=== PATIENT | female | born 1945 | race Caucasian/White ===

== ENCOUNTER → 2017-08-23 | Outpatient (CLI) | payer MEDICARE, OTHER ==
[~2017-08-23] MED LIST: ACET325 PO; ALBU90OI; ALBU90OI6 INH; ALLEGRA ALLERG180 MG PO; AMOCLA875 PO; ASCO1ER; ASCO500 PO; Alph-E-Mixed400 UNIT PO; Azor 5-20 MG T1 EACH; BENAML20/5; BUDE6HFA; CHOL10002 PO; DOCU100 PO; Exforge 5-1601 EACH PO; FEXO180; FLAX PO; FLUSAL2505 INH; HYDR1TAB94 PO; OMEP20ER; OXYACE5T PO; PROACE100 PO; PROBIOTIC250 MG PO; PROM25 PO; Prilosec Otc20 MG PO; QUIN325; QUININE SULFAT324 MG PO; RALO60 PO
== END | disposition home or self-care (01) ==
LOC: PLD 14:03 → LAB SHORT 14:03
DX: C44.612 Basal cell carcinoma of skin of right upper limb, including shoulder (principal); D04.61 Carcinoma in situ of skin of right upper limb, including shoulder
CPT/HCPCS: 88305

== ENCOUNTER → 2019-04-24 | Outpatient (CLI) | payer MEDICARE | END | disposition home or self-care (01) | LOC: PLD 14:19 → LAB SHORT 14:19 | DX: C44.612 Basal cell carcinoma of skin of right upper limb, including shoulder (principal) | CPT/HCPCS: 88305 ==

== ENCOUNTER 2020-09-16 07:50 | Inpatient (IN) | payer MEDICARE, OTHER ==
[~2020-09-16] VITALS: Ht 167.6 cm; Wt 78.5 kg
[2020-09-16 08:34] LABS: BASOPHILS ABSOLUTE AUTO 0.03 K/mm3 (0.00-0.23); BASOPHILS PERCENT AUTO 0 % (0-2); EOSINOPHILS PERCENT AUTO 0 % (0-6); Hematocrit 45.4 % (33.0-51.0); Hemoglobin 14.9 g/dL (11.5-16.0); IMMATURE GRAN ABSOLUTE AUTO 0.06 K/mm3 (0.00-0.10); IMMATURE GRAN PERCENT AUTO 0 % (0-1); LYMPHOCYTES ABSOLUTE AUTO 0.67 K/mm3 (0.84-5.20); LYMPHOCYTES PERCENT AUTO 5 % (21-46); MONOCYTES PERCENT AUTO 6 % (4-13); Mean Corpuscular HGB 30.8 pg (26.0-34.0); Mean Corpuscular HGB Conc 32.8 g/dL (31.5-36.5); Mean Corpuscular Volume 94 fL (80-100); Mean Platelet Volume 9.2 fL (9.1-12.4); NEUTROPHILS ABSOLUTE AUTO 12.59 K/mm3 (1.96-9.15); NEUTROPHILS PERCENT AUTO 88 % (41-73); Platelet Count 193 K/mm3 (150-400); RDW Coefficient Variation 13.5 % (11.7-14.2); RDW Standard Deviation 46.7 fL (35.1-46.3); Red Blood Cell Count 4.83 M/mm3 (3.80-5.20); White Blood Cell Count 14.25 K/mm3 (4.00-11.30)
[2020-09-16 08:54] LABS: Albumin/Globulin Ratio 1.1 (0.8-1.8); Bilirubin, Total 1.8 mg/dL (0.1-1.0); Bun/Creatinine Ratio 21.4 (12.0-20.0); Calcium, Blood 9.2 mg/dL (8.5-10.1); Creatinine, Blood 1.03 mg/dL (0.40-1.00); Globulin, Blood 3.8 g/dL (2.2-4.0); Potassium, Blood 3.7 mmol/L (3.5-5.5); Total Protein, Blood 7.8 g/dL (6.4-8.2)
[2020-09-16 09:05] LABS: Source, Urine Clean Catch
[2020-09-16 09:24] LABS: Appearance, Urine Clear (Clear); Bilirubin, Urine Neg (Neg); Blood, Urine 2+ (Neg); Color, Urine Yellow (P-Yellow); Glucose Qualitative, Urine Neg (Neg); Ketones, Urine 1+ (Neg); Leukocyte Esterase, Urine 1+ (Neg); Nitrite, Urine Neg (Neg); Protein, Urine 2+ (Neg); Specific Gravity, Urine 1.015 (1.003-1.022); Urobilinogen, Urine 2+ (Normal)
[2020-09-16 09:40] LABS: Bacteria Rare /hpf; Granular Casts 0-2 /lpf (0); Hyaline Casts 0-2 /lpf (0-2); Red Blood Cells, Urine 0-2 /hpf (0-2); Squamous Epithelial Cells Few /hpf (Few)
[2020-09-16] MEDS ORDERED: Diovan320 MG PO (10:27)
[2020-09-16] MEDS ORDERED: MONT10T PO (10:27)
[2020-09-16] MEDS ORDERED: AMLO5 PO (10:28)
[2020-09-16 10:46] LABS: Influenza A, PCR NEGATIVE (NEGATIVE); Influenza B, PCR NEGATIVE (NEGATIVE); Resp Syncytial Virus, PCR NEGATIVE (NEGATIVE); SARS-Cov-2 (COVID-19) PCR, MMC NEGATIVE (NEGATIVE)
[2020-09-16] MEDS ORDERED: FLUTICASONE-SA1 EAC9 INH (18:41)
[2020-09-16] MEDS ORDERED: PROBIOTIC1 EA13 PO (19:40)
[2020-09-16] MEDS ORDERED: MAGNESIUM OXID500 MG PO (19:40)
[2020-09-16] MEDS ORDERED: Garlic1 EAC1 PO (19:41)
[2020-09-16] MEDS ORDERED: VITAMIN C PO (19:41)
[2020-09-16] MEDS ORDERED: BERGAMOT PO (19:41)
[2020-09-16] MEDS ORDERED: VITAMIN D5000 UNIT PO (19:42)
[2020-09-16] MEDS ORDERED: [UNRECOGNIZED DRUG - OTHER] PO (19:43)
[2020-09-16] MEDS ORDERED: METHYL B PO (19:43)
--- NOTE | 2020-09-17 04:43 | NUR ---
SHIFT ASSESSMENT NEW ER ADMIT THIS SHIFT (1919), NO ACUTE CHANGES ABRIL ASSUMING CARE, A&O X4, MEDICATED PER SEP FOR PAIN- HAS REQUIRED Q2 ADMIN SINCE ASSUMING CARE, PT RESTED WELL T/O THE NIGHT WAKING FOR PAIN MEDS AND RETURNING TO SLEEP BETWEEN ADMIN, SLEEPING AT THIS TIME, CALL LIGHT IN REACH, WILL CONT TO MONITOR UNTIL REPORT GIVEN TO DAY RN.
[2020-09-17 05:14] LABS: Hematocrit 46.7 % (33.0-51.0); Hemoglobin 14.7 g/dL (11.5-16.0); Mean Corpuscular HGB 31.3 pg (26.0-34.0); Mean Corpuscular HGB Conc 31.5 g/dL (31.5-36.5); Mean Platelet Volume 9.6 fL (9.1-12.4); Platelet Count 189 K/mm3 (150-400); RDW Coefficient Variation 14.4 % (11.7-14.2); White Blood Cell Count 15.89 K/mm3 (4.00-11.30)
[2020-09-17 05:42] LABS: Albumin/Globulin Ratio 0.9 (0.8-1.8); Bilirubin, Total 0.8 mg/dL (0.1-1.0); Bun/Creatinine Ratio 16.2 (12.0-20.0); Calcium, Blood 7.4 mg/dL (8.5-10.1); Creatinine, Blood 1.6 mg/dL (0.40-1.00); Globulin, Blood 3.4 g/dL (2.2-4.0); Total Protein, Blood 6.4 g/dL (6.4-8.2)
[2020-09-17 05:45] LABS: Potassium, Blood 5.7 mmol/L (3.5-5.5)
[2020-09-17 06:13] LABS: Mean Corpuscular Volume 99 fL (80-100)
[2020-09-17 07:16] LABS: BAND PERCENT MAN 6 % (0-8); BASOPHILS PERCENT MAN 0 % (0-2); EOSINOPHILS PERCENT MAN 0 % (0-6); LYMPHOCYTES ABSOLUTE MAN 0.31 K/mm3 (0.84-5.20); LYMPHOCYTES PERCENT MAN 2 % (21-46); MONOCYTES ABSOLUTE MAN 0.47 K/mm3 (0.16-1.47); MONOCYTES PERCENT MAN 3 % (4-13); NEUTROPHILS ABSOLUTE MAN 15.09 K/mm3 (1.96-9.15); SEG NEUTROPHILS PERCENT MAN 89 % (41-73); TOTAL CELLS COUNTED 100
[2020-09-17 13:17] LABS: Source, Urine Catheter
[2020-09-17 13:22] LABS: Appearance, Urine Hazy (Clear); Blood, Urine 2+ (Neg); Color, Urine Amber (P-Yellow); Glucose Qualitative, Urine Neg (Neg); Ketones, Urine 1+ (Neg); Leukocyte Esterase, Urine 1+ (Neg); Nitrite, Urine Neg (Neg); Protein, Urine 2+ (Neg); Specific Gravity, Urine 1.025 (1.003-1.022); Urobilinogen, Urine 1+ (Normal)
[2020-09-17 13:58] LABS: Bun/Creatinine Ratio 14.1 (12.0-20.0); Calcium, Blood 7.8 mg/dL (8.5-10.1); Creatinine, Blood 2.48 mg/dL (0.40-1.00)
[2020-09-17 14:06] LABS: Bilirubin, Urine 1+ (Neg)
[2020-09-17 14:07] LABS: Bacteria Mod /hpf; Squamous Epithelial Cells Few /hpf (Few)
[2020-09-17 15:43] LABS: Eosinophils-Raw #,Urine 0
--- NOTE | 2020-09-17 17:04 | NUR ---
ADMIT: 09/16/20 DISCHARGE: Pancreatitis DX: CC: PRISCILA CALL: RESIDENCE: Home CAREGIVER: Makayla Traylor, Family Member, DX: HTN, CKD-stage 1, COPD, GERD, see list DME: plantar fasciitis arch sleeve CCM: none HOME HEALTH: none SUMMARY: 1: Pancreatitis, acute 09/17/[address] Salazar today, Dr Jones will be on for Mon, mon, mon. DR Grimaldo eta for discharge after the weekend. cp
--- NOTE | 2020-09-17 19:01 | NUR ---
SHIFT SUMMARY PT HAS BEEN CONFUSED THIS AFTERNOON AND CAN BE AGITATED AT TIMES. RIOS WAS PLACED THIS AFTERNOON WITH SMALL AMOUNT OF DARK VINCENT URINE DRAINING. RIOS CONTINUES TO BE PATENT AND DRAINING. DR. LIZ WAS CONSULTED AND MEDICATIONS GIVEN PER ORDERS. MEDICATED FOR PAIN PER EMAR. PT DID SLEEP A LOT OF THE AFTERNOON. SISTER WAS AT BEDSIDE THIS AFTERNOON. IVF INFUSING PER ORDERS. NO ACUTE DISTRESS AT THIS TIME. CALL LIGHT IN REACH. BED ALARM ON FOR SAFETY. REPORT GIVEN TO HALI MOSES.
--- NOTE | 2020-09-18 04:29 | NUR ---
SHIFT SUMMARY PT CONFUSED MOST OF SHIFT W/SHORT PERIODS OF ORIENTATION, MEDICATED PER SEP FOR PAIN WHICH ONLY SUBSIDED PAIN BRIEFLY. PT SLEPT SHORT PERIODS MOANING AND CALLING OUT MUCH OF THE NIGHT, PT XFER'D TO 347 @ 4430, REPORT GIVEN TO AURELIA BENNETT, ALL BELONGINGS MOVED W/PT, PULLMAN CAR CLERK AT BEDSIDE.
--- NOTE | 2020-09-18 04:44 | NUR ---
TRANSFER TO ROOM 347 PT ARRIVED FROM ROOM 311. PT AWAKE AND ORIENTED TO SELF AND STAFF. ABLE TO ANSWER SOME YES/NO QUESTIONS BUT DOES HAVE SOME NOTICEABLE CONFUSION. MEDICATED FOR PAIN AND GIVEN BREATHING TREATMENT PRIOR TO TRANSFER. SODIUM BICARB RUNNING AT 50 ML/HR. VSS, WILL CONTINUE TO MONITOR.
[2020-09-18 04:51] LABS: BASOPHILS ABSOLUTE AUTO 0.05 K/mm3 (0.00-0.23); BASOPHILS PERCENT AUTO 0 % (0-2); Hematocrit 42.7 % (33.0-51.0); Hemoglobin 13.7 g/dL (11.5-16.0); LYMPHOCYTES ABSOLUTE AUTO 1.18 K/mm3 (0.84-5.20); LYMPHOCYTES PERCENT AUTO 6 % (21-46); MONOCYTES ABSOLUTE AUTO 1.32 K/mm3 (0.16-1.47); MONOCYTES PERCENT AUTO 7 % (4-13); Mean Corpuscular HGB Conc 32.1 g/dL (31.5-36.5); Mean Corpuscular Volume 97 fL (80-100); Mean Platelet Volume 9.8 fL (9.1-12.4); Platelet Count 189 K/mm3 (150-400); RDW Coefficient Variation 15.1 % (11.7-14.2); RDW Standard Deviation 54.2 fL (35.1-46.3); Red Blood Cell Count 4.42 M/mm3 (3.80-5.20); White Blood Cell Count 20.37 K/mm3 (4.00-11.30)
[2020-09-18 04:54] LABS: EOSINOPHILS PERCENT AUTO 0 % (0-6); IMMATURE GRAN ABSOLUTE AUTO 0.13 K/mm3 (0.00-0.10); IMMATURE GRAN PERCENT AUTO 1 % (0-1); NEUTROPHILS ABSOLUTE AUTO 17.69 K/mm3 (1.96-9.15); NEUTROPHILS PERCENT AUTO 87 % (41-73)
[2020-09-18 05:19] LABS: Alanine Aminotransfer (ALT/SGP 112 U/L (12-78); Albumin, Blood 2.6 g/dL (3.4-5.0); Albumin/Globulin Ratio 0.8 (0.8-1.8); Alk Phos 88 U/L (50-136); Amylase, Blood 533 U/L (25-115); Anion Gap 7 mmol/L (6-16); Aspartate Aminotrans (AST/SGOT 77 U/L (12-37); Bilirubin, Total 0.6 mg/dL (0.1-1.0); Blood Urea Nitrogen 50 mg/dL (8-24); Bun/Creatinine Ratio 13.7 (12.0-20.0); CO2, Blood 21 mmol/L (21-32); Calcium, Blood 7.5 mg/dL (8.5-10.1); Chloride, Blood 117 mmol/L (98-108); Creatinine, Blood 3.64 mg/dL (0.40-1.00); Globulin, Blood 3.4 g/dL (2.2-4.0); Glomerular Filtration Rate 13 (60-); Glucose, Blood 190 mg/dL (70-99); Magnesium, Blood 2.1 mg/dL (1.6-2.4); Phosphorus, Blood 3.2 mg/dL (2.5-4.9); Sodium, Blood 145 mmol/L (136-145)
[2020-09-18 05:22] LABS: C-REACTIVE PROTEIN, EXT RANGE >19.000 mg/dL (0.000-0.300)
--- NOTE | 2020-09-18 08:07 | NUR ---
CALLED DR CONN AND DISCUSSED PT'S COMPLAINT OF CHEST PAIN. PT DIAPHORETIC, TEMP, TACHYPNEIC. PUT 2L ON HER, GOT VS. PT STATES IT IS HARD TO BREATHE. DR CONN STATES SHE WILL PUT IN ORDERS
[2020-09-18 09:28] LABS: Troponin I <0.015 ng/mL (0.000-0.040)
[2020-09-18 09:30] LABS: CPK Creatine Kinase 2124 U/L (26-193); Creatine Kinase MB Index 0.7 (0.0-4.0)
--- NOTE | 2020-09-18 09:30 | NUR ---
SPOKE TO DR CONN ABOUT LACTIC ACID AND PTS' REFUSAL TO TAKE TYLENOL DUE TO AMS. ALSO TOLD HER ABOUT PT'S REALY DISTENDED ABD, BUT PT REFUSING TO ALLOW FULL ABD ASSESSMENT DUE TO AGITATION. DR CONN ORDER'S PT TO GO TO PCU. PLACING ORDER
--- NOTE | 2020-09-18 10:30 | NUR ---
REPORT GIVEN TO DOBBY LOOM WEAVER, HEADED TO PCU FLOOR
--- NOTE | 2020-09-18 10:49 | NUR ---
Echocardiogram performed.
--- NOTE | 2020-09-18 11:10 | NUR ---
PT TRANSFERRED TO [facility] AT 1055
[2020-09-18 11:19] LABS: Adenovirus Not Detected (NOT DETECT); Bordetella pertussis Not Detected (NOT DETECT); Chlamydophila pneumoniae Not Detected (NOT DETECT); Coronavirus 229E Not Detected (NOT DETECT); Coronavirus HKU1 Not Detected (NOT DETECT); Coronavirus NL63 Not Detected (NOT DETECT); Coronavirus OC43 Not Detected (NOT DETECT); Human Metapneumovirus Not Detected (NOT DETECT); Human Rhinovirus/Enterovirus Not Detected (NOT DETECT); Influenza A/2009-H1 Not Detected (NOT DETECT); Influenza A/H1 Not Detected (NOT DETECT); Influenza A/H3 Not Detected (NOT DETECT); Influenza B Not Detected (NOT DETECT); Mycoplasma pneumoniae Not Detected (NOT DETECT); Parainfluenza Virus 1 Not Detected (NOT DETECT); Parainfluenza Virus 2 Not Detected (NOT DETECT); Parainfluenza Virus 3 Not Detected (NOT DETECT); Parainfluenza Virus 4 Not Detected (NOT DETECT); Respiratory Syncytial Virus Not Detected (NOT DETECT); SARS-Cov-2 (COVID-19), BioFire Not Detected (NOT DETECT)
--- NOTE | 2020-09-18 13:58 | NUR ---
NOTIFIED DR. CONN OF CRITICAL LACTIC ACID OF 2.7, UP FROM 2.2. DR. CONN AT BEDSIDE TO ASSESS PAIN. PATIENT HAS RECEIVED FENTANYL 25 MCG X2 SINCE ARRIVING TO FLOOR. PATIENT CALM AND COOPERATIVE AT THIS TIME, DROWSY. DR. CONN STATES SHE WILL REVIEW AND PUT IN ORDERS.
[2020-09-18 14:42] LABS: Troponin I <0.015 ng/mL (0.000-0.040)
[2020-09-18 14:43] LABS: Creatine Kinase MB 12.6 ng/mL (0.0-3.6)
[2020-09-18 14:47] LABS: CPK Creatine Kinase 2203 U/L (26-193); Creatine Kinase MB Index 0.6 (0.0-4.0)
--- NOTE | 2020-09-18 19:54 | NUR ---
SHIFT SUMMARY: PATIENT A/OX1-2. TRANSFERRED FROM MEDICAL FLOOR THIS AM. FENTANYL GIVEN FOR ABD PAIN. NPO. ORAL CARE PROVIDED. REPOSITIONING Q2H. SHE HAS BEEN COOPERATIVE WITH CARE THIS SHIFT. PLAN IS FOR BOWEL REST PER DR. CONN. DAUGHTER AND SON UPDATED. REPORT GIVEN TO ONCOMING RN.
[2020-09-18 21:08] LABS: Creatine Kinase MB 9.1 ng/mL (0.0-3.6); Troponin I <0.015 ng/mL (0.000-0.040)
[2020-09-18 21:16] LABS: CPK Creatine Kinase 2028 U/L (26-193); Creatine Kinase MB Index 0.4 (0.0-4.0)
[2020-09-19 04:32] LABS: Hematocrit 37.6 % (33.0-51.0); Hemoglobin 12.3 g/dL (11.5-16.0); Mean Corpuscular HGB 30.6 pg (26.0-34.0); Mean Corpuscular HGB Conc 32.7 g/dL (31.5-36.5); Mean Corpuscular Volume 94 fL (80-100); Mean Platelet Volume 9.9 fL (9.1-12.4); Platelet Count 173 K/mm3 (150-400); RDW Coefficient Variation 15.3 % (11.7-14.2); RDW Standard Deviation 53.1 fL (35.1-46.3); Red Blood Cell Count 4.02 M/mm3 (3.80-5.20); White Blood Cell Count 15.32 K/mm3 (4.00-11.30)
--- NOTE | 2020-09-19 04:34 | NUR ---
SHIFT SUMMARY PT A0X1-2. PT CAN ANSW QUESTION APPROPRIATELY BUT HAS SOME CONFUSION. SHE APPEARS TO BE ANXIOUS AND PAINFUL AT THE BEGINNING OF THE SHIFT. PAIN MANAGED WITH FENTANYL 25MCG, MEDICATED TWICE T/O SHIFT. ALSO ADMINISTERED ATIVAN X1 T/O SHIFT. PT REMAINS NPO. LUNGS SOUNDS WHEEZY AND PHLEGMY. CALLED AND NOTIFIED DR. LIZ NOTIFED AND REPORTED FLUID BALANCED OF +1921ML AND A NEED TO INCREASE O2 TO 3L. DR. LIZ DECREASED BICARB TO 50ML/HR RATE, 1 TIME BUMEX VIA IV. PT IS CURRENTLY ON 3L 02, SATURATING AT 90%. PT APPEARED TO HAVE GREEN COLOR BILE FROM HER MOUTH. ORAL CARE PROVIDED. CALL LIGHT WITHIN REACH.
--- NOTE | 2020-09-19 04:46 | NUR ---
SHIFT SUMMARY PT AOX4. NO ACUTE CHANGES OVERNIGHT. PT COMFORTABLE SLEEPING T/O SHIFT. HE HAS BEEN USING HIS CPAP MACHINE. PT DENIES CHEST PAIN, SOB, NUMBNESS, TINGLING SENSATION. HEPARIN TITRATE TODAY, CHANGES TO 17UNITS/26.4/88KG AND A BOLUS. HE HAS NPO AFTER MIDNIGHT. TO STOP HEPARIN DRIP AT 0600 FOR CORONARY ANGIO TODAY. CALL LIGHT WITHIN REACH. WILL PROVIDE REPORT TO ONCOMING NURSE.
[2020-09-19 05:06] LABS: Alanine Aminotransfer (ALT/SGP 87 U/L (12-78); Albumin, Blood 2.3 g/dL (3.4-5.0); Albumin/Globulin Ratio 0.6 (0.8-1.8); Alk Phos 75 U/L (50-136); Anion Gap 11 mmol/L (6-16); Aspartate Aminotrans (AST/SGOT 74 U/L (12-37); Bilirubin, Total 0.8 mg/dL (0.1-1.0); Blood Urea Nitrogen 67 mg/dL (8-24); Bun/Creatinine Ratio 15.9 (12.0-20.0); CO2, Blood 22 mmol/L (21-32); Calcium, Blood 7.6 mg/dL (8.5-10.1); Chloride, Blood 112 mmol/L (98-108); Creatinine, Blood 4.21 mg/dL (0.40-1.00); Globulin, Blood 3.8 g/dL (2.2-4.0); Glomerular Filtration Rate 11 (60-); Glucose, Blood 223 mg/dL (70-99); Potassium, Blood 4.3 mmol/L (3.5-5.5); Sodium, Blood 145 mmol/L (136-145); Total Protein, Blood 6.1 g/dL (6.4-8.2); Vancomycin, Random 22.8 ug/mL
[2020-09-19 05:50] LABS: BAND PERCENT MAN 20 % (0-8); BASOPHILS PERCENT MAN 0 % (0-2); EOSINOPHILS PERCENT MAN 0 % (0-6); LYMPHOCYTES ABSOLUTE MAN 0.76 K/mm3 (0.84-5.20); LYMPHOCYTES PERCENT MAN 5 % (21-46); MONOCYTES ABSOLUTE MAN 1.07 K/mm3 (0.16-1.47); MONOCYTES PERCENT MAN 7 % (4-13); NEUTROPHILS ABSOLUTE MAN 13.48 K/mm3 (1.96-9.15); SEG NEUTROPHILS PERCENT MAN 68 % (41-73); TOTAL CELLS COUNTED 100
--- NOTE | 2020-09-19 08:20 | NUR ---
0820- PT OFF THE FLOOR VIA [facility] FOR XRAY. RN NOTIFIED BY XRAY STAFF THAT PT IS VOMITING. THIS RN TO XRAY TO EVALUATE PT. 0824- ZOFRAN PULLED FROM XIS AND TAKEN TO XRAY BY THIS RN. 0828- THIS RN ASSESSES PT IN XRAY. SHE IS ALERT AND ORIENTED AT HER BASELINE, ZOFRAN GIVEN IV PER MD ORDERS (SEE EMAR.) APROX 200ML OF GREEN EMESIS NOTED IN EMESIS BAG. XRAY CONTINUES, PT TOLERATING SITTING UP IN BED FOR CHEST XRAY. PT IS MOVED TO LYING ON HER SIDE FOR ANOTHER XRAY, PT TOLERATES WELL. NO MORE VOMITING IS NOTED. PT IS TRANSFERED TO XRAY TABLE FOR LAST XRAY, PT IS LYING ON HER SIDE WHEN GREEN BILE-LIKE LIQUID STARTS TO RUN OUT OF HER MOUTH AND NOSE. THIS RN AT BEDSIDE WITH ORAL SUCTION. ORAL CAVITY IS CLEARED VIA SUCTION, PT IS TRANSFERRED BACK TO [facility] ON HER SIDE, HOB ELEVATED, AND TRANSPORTED BACK TO PCU 10. CHARGE NURSE AND PT'S PRIMARY NURSE AT BEDSIDE. RT CALLED TO BEDSIDE. PT IS POSITIONED SITTING UP AT 90 DEGREES, RT PERFORMED ORAL AND DEEP SUCTION RETURNING LARGE AMOUNTS OF GREEN FLUIDS. OXYGEN MASK AT FLUSH PLACED ON PT D/T SATURATIONS DROPPING INTO THE LOW 80S. RT EVALUATING PT, DECIDES SHE NEEDS BREATHING ASSISTANCE, AMBU BAG AT FLUSH NOW APPLIED BY RT. CODE BLUE CALLED AT THIS TIME.
[2020-09-19 09:27] LABS: Hematocrit 37.7 % (33.0-51.0); Hemoglobin 12.2 g/dL (11.5-16.0); Mean Corpuscular HGB 31.6 pg (26.0-34.0); Mean Corpuscular HGB Conc 32.4 g/dL (31.5-36.5); Mean Corpuscular Volume 98 fL (80-100); Mean Platelet Volume 9.8 fL (9.1-12.4); Platelet Count 163 K/mm3 (150-400); RDW Coefficient Variation 15.5 % (11.7-14.2); RDW Standard Deviation 55.8 fL (35.1-46.3); Red Blood Cell Count 3.86 M/mm3 (3.80-5.20); White Blood Cell Count 15.48 K/mm3 (4.00-11.30)
[2020-09-19 09:56] LABS: Alanine Aminotransfer (ALT/SGP 81 U/L (12-78); Albumin/Globulin Ratio 0.5 (0.8-1.8); Alk Phos 70 U/L (50-136); Anion Gap 10 mmol/L (6-16); Aspartate Aminotrans (AST/SGOT 68 U/L (12-37); Bilirubin, Total 0.7 mg/dL (0.1-1.0); Blood Urea Nitrogen 68 mg/dL (8-24); Bun/Creatinine Ratio 15.6 (12.0-20.0); CO2, Blood 23 mmol/L (21-32); CPK Creatine Kinase 1406 U/L (26-193); Calcium, Blood 7.1 mg/dL (8.5-10.1); Chloride, Blood 111 mmol/L (98-108); Creatine Kinase MB 5.3 ng/mL (0.0-3.6); Creatine Kinase MB Index 0.4 (0.0-4.0); Creatinine, Blood 4.35 mg/dL (0.40-1.00); Globulin, Blood 3.7 g/dL (2.2-4.0); Glomerular Filtration Rate 10 (60-); Glucose, Blood 197 mg/dL (70-99); Magnesium, Blood 2.2 mg/dL (1.6-2.4); Potassium, Blood 4.7 mmol/L (3.5-5.5); Sodium, Blood 144 mmol/L (136-145); Total Protein, Blood 5.7 g/dL (6.4-8.2); Troponin I <0.015 ng/mL (0.000-0.040)
[2020-09-19 10:00] LABS: BAND PERCENT MAN 10 % (0-8); BASOPHILS PERCENT MAN 0 % (0-2); EOSINOPHILS PERCENT MAN 0 % (0-6); LYMPHOCYTES PERCENT MAN 11 % (21-46); MONOCYTES ABSOLUTE MAN 1.08 K/mm3 (0.16-1.47); MONOCYTES PERCENT MAN 7 % (4-13); NEUTROPHILS ABSOLUTE MAN 12.69 K/mm3 (1.96-9.15); SEG NEUTROPHILS PERCENT MAN 72 % (41-73); TOTAL CELLS COUNTED 100
--- NOTE | 2020-09-19 11:19 | NUR ---
AM NOTE, IMAGING, CODE BLUE: COMPLETED BEDSIDE REPORT AT APPROX 0700. PATIENT WAKES TO VERBAL, ABLE TO SLEEP, DENIED NEED FOR REPOSITIONING. IN ROOM TO COMPLETE VITALS AND ASSESSMENT AT 0800. PATIENT ORIENTED TO NAME/BIRTHDAY AND FAMILY BUT DISORIENTED TO DATE/TIME/PLACE. COOPERATIVE WITH CARE AND FOLLOWS DIRECTIONS. ABLE TO RN PERITONEAL DIALYSIS HANDS EQUALLY, SMILES, STICKS TONGUE OUT. ORAL CARE COMPLETED WITH SUCTION SPONGE. ON 2L O2 VIA NC, LUNGS SOUND COARSE THROUGHOUT. RESPIRATIONS SOUND WET, RECEIVED BUMEX LAST NIGHT AND IV FLUIDS DOWN TO 50 MLS/HR. SINUS TACH ON TELE IN THE LOW 100'S. ABD DISTENDED AND FIRM. PATIENT REPORTS TENDERNESS ACROSS LOW ABDOMEN UPON PALPATION BUT DENIES PAIN AT REST. DENIES NAUSEA. RIOS DRAINING CLEAR YELLOW URINE. SKIN IS PALE. BED ALARM ON FOR SAFETY. IMAGING IN ROOM TO TRANSFER PATIENT AT APPROX 0810. SLID PATIENT TO [facility] VIA SLIDER SHEET. PATIENT TOLERATING LAYING FLAT. DOWN TO IMAGING. IMAGING CALLED ME OVER VOCERA AT APPROX 0820 AND STATED THAT PATIENT HAD VOMITED AND ASKED IF AN RN COULD COME AND ASSIST. I ASKED JESI MCGARRY WHO IS THE PCU FLOAT RN TO GO DOWN TO XRAY AND TAKE ZOFRAN TO ADMINISTER TO THE PATIENT. JESI OBTAINED ZOFRAN AND WENT DOWN TO IMAGING, PLEASE SEE NOTE FROM JESI. JULIA GAGNON RN CALLED AT APPROX 0845 AND STATED THEY WERE RETURNING TO THE ROOM WITH THE PATIENT. WENT INTO PATIENT'S ROOM. SHE HAD DRIED GREEN EMESIS ON HER FACE AND ON HER BACK. SHE WAS LAYING ON HER SIDE. LUNGS SOUNDED VERY DIMINISHED ON THE LEFT SIDE AND COARSE ON THE RIGHT SIDE. SPO2 IN THE 80'S. ROLLED PATIENT TO GET BLANKETS OUT FROM UNDER HER AND SAT HER STRAIGHT UP. SHE WAS AWAKE AND ANSWERING QUESTIONS. SPO2 IN LOW 80'S. JSEI STATES SHE BELIEVED PATIENT ASPIRATED IN IMAGING. INCREASED O2 TO MAX VIA NASAL CANNULA WHILE WAITING FOR RESPIRATORY THERAPY. USED SUCTION IN PATIENT'S MOUTH, OBTAINING DARK GREEN RETURN. MELISSA VICENTE RESPIRATORY THERAPIST IN ROOM. ADMINISTERED BREATHING TREATMENT. SHE WAS SUCTIONING PATIENT AND STATED THAT SHE WAS GETTING MORE AND MORE GREEN RETURN. SHE OBTAINED DEEP SUCTION AND STATED THAT SHE THOUGHT PATIENT NEEDED AN NG TUBE. SPO2 CONTINUING IN THE 80'S WITH MORE GREEN RETURN VIA SUCTION. CALLED DR. CONN AND NOTIFIED HER OF PATIENT'S O2 STATUS, THAT SHE VOMITED IN IMAGING AND POSSIBLY ASPIRATED, AND DARK GREEN RETURN AND THAT WE BELIEVED SHE COULD BENEFIT FROM AN NG TUBE. ORDERS RECEIVED FOR NG TUBE. WHILE I WAS ON THE PHONE WITH DR. CONN PATIENT WENT INTO RESPIRATORY ARREST AND CODE WAS CALLED, NOTIFIED DR. CONN THAT WE WERE CALLING A CODE AND SHE STATED THAT SHE WAS ON HER WAY. CODE TEAM IN ROOM, DR. FELDER IN ROOM GIVING ORDERS AND PREPPED TO INTUBATE. PER DOCUMENTATION BY JULIA RN: 40 OF PROPOFOL GIVEN AT 0902, 25 AT THE TEETH INTUBATION COMPLETED AT 0905, NORMAL SALINE 1000 MLS WIDE OPEN ORDERED AT 0907, AT 0920 LEVO WAS STARTED AT 5. PLEASE SEE CODE BLUE SHEET. PICC LINE STARTED BY THADDEUS. DR. CONN AT BEDSIDE, UPDATED HER, SHE GAVE ORDERS. PATIENT TRANSFERRED TO ICU AT APPROX 1015, REPORT GIVEN TO [employer] SUPERVISOR. FAMILY WAS NOTIFIED OF PATIENT STATUS AND TRANSFER.
[2020-09-19 11:52] LABS: PCO2 Arterial 43.1 mmHg (35-45); PO2 Arterial 109 mmHg (80-100); pH Blood Arterial 7.33 (7.35-7.45)
--- NOTE | 2020-09-19 13:14 | NUR ---
PT TO ICU 7 FROM PCU ROOM 10 FOLLOWING RESPIRATORY CODE @0945. PT ARRIVES INTUBATED AND QUICKLY SEDATED WITH PROPOFOL 30 MCG/KG/MIN. VENT SETTINGS ON ARRIVAL 14/350/10/100%, CURRENT VENT SETTINGS 14/350/8/50% WITH SATS 99%. 8.0 TUBE, 25 @LIP. PT ON LEVOPHED BRIEF PERIOD FOLLOWING INTUBATION PLACED ON STANDBY @1046, BLOOD PRESSURE WNL AT THIS TIME. PT'S ABDOMEN DISTENDED AND FIRM TO PALPATION, PT GRIMACES WITH ABDOMINAL PALPATION. ABSENT BOWEL TONES X4, PER PREVIOUS IMAGING PT HAS ILEUS. NGT TO LOW CONTINUOUS SUCTION, GREEN BILE OUTPUT. PT HAS RIOS WITH SMALL AMOUNT OF URINARY OUTPUT, URINE SPECIMINE SENT TO LAB PER DR. LIZ ORDER. 24 HOUR URINE PROTEIN STARTED AT 1245, TO END 09/20/20 @1245. PT'S SISTER AT BEDSIDE, FAMILY UPDATED WITH PT'S TRANSFER AND PLAN OF CARE.
--- NOTE | 2020-09-19 18:40 | NUR ---
SHIFT SUMMARY NO ACUTE CHANGES SINCE PT TRANSFERRED TO ICU. PT REMAINS INTUBATED, VENT SETTINGS AC 14/350/8/35% WITH SATS 98, LUNG SOUNDS CLEAR. PROPOFOL @ 35 MCG/KG/MIN. LEVOPHED REMAINS OFF, BLOOD PRESSURE STABLE. SODIUM BICARB GTT @ 100 ML/HR. PT NSR WITH SHORT RUNS OF VTAMUMTAZ, DR. FELDER AWARE. ABDOMEN REMAINS DISTENDED AND FIRM, PT EXHIBITS FACIAL GRIMACING WITH PALPATION. NGT TO LOW CONTINUOUS SUCTION, 25 ML BILE SUCTIONED THIS SHIFT. 385 ML URINARY OUTPUT. WILL REPORT TO ONCOMING NURSE.
--- NOTE | 2020-09-19 19:15 | NUR ---
ASSUMPTION OF CARE RECEIVED REPORT FROM NATY MOSES. ASSUMED CARE OF PATIENT. PATIENT INTUBATED AND SEDATED ON PROPOFOL. SLIGHT TURNS OF HER HEAD SIDE TO SIDE, BUT REMAINS A SAS OF 3. OG TO CONTINUOUS SUCTION, DARK OUTPUT NOTED. RIOS PATENT AND DRAINING CLEAR, YELLOW URINE ON ICE PER 24 HOUR URINE COLLECTION. WILL REVIEW ORDERS AND TREAT PRESCRIBED.
--- NOTE | 2020-09-20 | NUR ---
REASSESSMENT NO ACUTE CHANGES FROM INITIAL ASSESSMENT. VENT SETTINGS UNCHANGED. VITALS STABLE, LEVOPHED REMAINS OFF. PROPOFOL REMAINS AT 35MCG/KG/MIN. WILL CONTINUE TO MONITOR.
[2020-09-20 03:38] LABS: Hemoglobin 9.7 g/dL (11.5-16.0); Mean Corpuscular HGB 31.2 pg (26.0-34.0); Mean Corpuscular HGB Conc 33.4 g/dL (31.5-36.5); Mean Platelet Volume 9.7 fL (9.1-12.4); Platelet Count 122 K/mm3 (150-400); RDW Coefficient Variation 15.5 % (11.7-14.2); RDW Standard Deviation 53.4 fL (35.1-46.3); Red Blood Cell Count 3.11 M/mm3 (3.80-5.20); White Blood Cell Count 10.68 K/mm3 (4.00-11.30)
[2020-09-20 03:43] LABS: Mean Corpuscular Volume 93 fL (80-100)
[2020-09-20 04:00] LABS: Alanine Aminotransfer (ALT/SGP 45 U/L (12-78); Albumin, Blood 2.7 g/dL (3.4-5.0); Albumin/Globulin Ratio 0.9 (0.8-1.8); Alk Phos 49 U/L (50-136); Anion Gap 8 mmol/L (6-16); Aspartate Aminotrans (AST/SGOT 28 U/L (12-37); Bilirubin, Direct 0.4 mg/dL (0.0-0.3); Bilirubin, Indirect 0.3 mg/dL (0.1-0.7); Bilirubin, Total 0.7 mg/dL (0.1-1.0); Blood Urea Nitrogen 71 mg/dL (8-24); Bun/Creatinine Ratio 15.8 (12.0-20.0); CO2, Blood 28 mmol/L (21-32); CPK Creatine Kinase 451 U/L (26-193); Calcium, Blood 7.7 mg/dL (8.5-10.1); Chloride, Blood 109 mmol/L (98-108); Globulin, Blood 2.9 g/dL (2.2-4.0); Glomerular Filtration Rate 10 (60-); Glucose, Blood 260 mg/dL (70-99); Magnesium, Blood 2.1 mg/dL (1.6-2.4); Phosphorus, Blood 3.1 mg/dL (2.5-4.9); Potassium, Blood 3.8 mmol/L (3.5-5.5); Sodium, Blood 145 mmol/L (136-145); Total Protein, Blood 5.6 g/dL (6.4-8.2); Uric Acid, Blood 8.3 mg/dL (2.6-6.0); Vancomycin, Random 16.8 ug/mL
--- NOTE | 2020-09-20 04:00 | NUR ---
REASSESSMENT NO ACUTE CHANGES FROM PREVIOUS ASSESSMENT. VENT SETTINGS REMAINS AC 25, VT 350, PEEP 8, FIO2 35%. PROPOFOL AT 40 MCG/KG/MIN. PATIENT MEDICATED FOR PAIN CHARTED, NO S/S OF DISTRESS AT THIS TIME. NG TO CONTINUOUS SUCTION BEGAN PRODUCING DARK DRAINAGE. WILL MONITOR OUTPUT.
--- NOTE | 2020-09-20 04:47 | NUR ---
LABS REPORTED POSITIVE BLOOD CULTURES TO DR. IGLESIAS. NO ORDERS RECEIVED. CURRENT ORDER OF ZOSYN REMAINS ACTIVE. WILL TREAT PRESCRIBED.
[2020-09-20 05:25] LABS: BAND PERCENT MAN 11 % (0-8); BASOPHILS PERCENT MAN 0 % (0-2); EOSINOPHILS ABSOLUTE MAN 0.21 K/mm3 (0.00-0.68); EOSINOPHILS PERCENT MAN 2 % (0-6); LYMPHOCYTES ABSOLUTE MAN 0.64 K/mm3 (0.84-5.20); LYMPHOCYTES PERCENT MAN 6 % (21-46); MONOCYTES ABSOLUTE MAN 0.53 K/mm3 (0.16-1.47); MONOCYTES PERCENT MAN 5 % (4-13); NEUTROPHILS ABSOLUTE MAN 9.29 K/mm3 (1.96-9.15); SEG NEUTROPHILS PERCENT MAN 76 % (41-73); TOTAL CELLS COUNTED 100
--- NOTE | 2020-09-20 06:16 | NUR ---
SHIFT SUMMARY PATIENT REMAINED INTUBATED AND SEDATED. MEDICATED FOR PAIN ONCE DURING SHIFT. NO ADDIITONAL OUTPUT NOTED FROM NG AT THIS TIME. RIOS CONTINUES TO DRAIN CLEAR, YELLOW URINE, COLLECTING FOR 24HOUR URINE. NO ACUTE EVENTS DURING SHIFT. PATIENT APPEARS COMFORTABLE, WITH NO S/S OF DISTRESS. VITALS STABLE. WILL CONTINUE TO MONITOR AND REPORT TO ONCOMING RN.
--- NOTE | 2020-09-20 09:59 | NUR ---
ASSUMED CARE OF PT, REPORT RCV'D FROM AURELIA COUGHLIN. PT INTUBATED AND SEDATED. VENT SETTINGS AC 14/350/8/35%. PROPOFOL@ 40 MCG/KG/MIN. LUNG SOUNDS CLEAR T/O. ABDOMIN SEVERELY DISTENDED AND FIRM, FACIAL GRIMACING WITH LIGHT PALPATION. NGT TO CONTINUOUS SUCTION, 300 ML GREEN BILE OVERNIGHT. RIOS PATENT AND DRAINING, 24 HOUR URINE COLLECTION OVER AT 1245. NAHCO3 @ 100 ML/HR. SEE FULL SHIFT ASSESSMENT.
--- NOTE | 2020-09-20 10:22 | NUR ---
ORDER TO PLACE DOBHOFF PARALLEL TO NGT. GOAL FOR DOBHOFF PLACEMENT TO BE POST PYLORIC IN DUODENUM. CONTINUE SUCTION. START TRICKLE FEEDS.
[2020-09-20 10:49] LABS: PCO2 Arterial 40.3 mmHg (35-45); PO2 Arterial 78.7 mmHg (80-100); pH Blood Arterial 7.48 (7.35-7.45)
--- NOTE | 2020-09-20 11:03 | NUR ---
PT'S SISTER KATINA CALLED, UPDATED WITH PT'S STATUS AND PLAN OF CARE. PT'S STEP-DAUGHTER WILL BE HERE THIS AFTERNOON.
--- NOTE | 2020-09-20 11:13 | NUR ---
HOLD TRICKLE FEEDS PER DR. FELDER, CONTINUE NGT CONTINUOUS SUCTION. GET ABDOMINAL PRESSURE.
[2020-09-20 11:55] LABS: Protein, Urine Quantitative 117.8 mg/dL (0.0-11.9)
--- NOTE | 2020-09-20 12:23 | NUR ---
INTRAABDOMINAL PRESSURE 13. DR. FELDER NOTIFIED. CONTINUE TO MONITOR PRESSURE ONCE PER SHIFT.
--- NOTE | 2020-09-20 18:28 | NUR ---
SHIFT SUMMARY NO ACUTE CHANGES OVERNIGHT. PT REMAINS VENTED, VENT SETTINGS UNCHANGED AC 14/350/8/35%. PROPOFOL @ 40 MCG/KG/MIN. OGT TO CONTINUOUS SUCTION, 100 ML BILIARY OUTPUT. SMALL AMOUNT OF THICK BLOOD TINGED SPUTUM FROM ETT. PT'S VSS T/O SHIFT. 635 ML URINARY OUTPUT. WILL REPORT TO ONCOMING NURSE.
--- NOTE | 2020-09-20 20:00 | NUR ---
SHIFT ASSESSMENT RECEIVED HAND OFF FROM Diana BREWER USING SBAR DURING BEDSIDE REPORT. LYING IN SEMI FOWLERS WITH EYES CLOSED. PUPIL DIALATION IS SLUGGISH BILATERALLY, EACH IS 2MM. RIGHT NARE NG TUME IS PATENT, DRAINGING DARK GREEN FLUID TO CONTINOUS SUCTION SET AT 50MM/HG. PLACEMENT VERIFIED WITH AIR BOLUS AND RESIDUAL CHECK. LINE IRRIGATED WITH 60ML H20, 250ML OUTPUT NOTED IN SUCTION CANISTER. INTUBATED WITH 8,0 ETT THAT IS 24 AT THE LIP. VENTED WITH SETTINGS AT 350/14/8 AND 35% FIO2, SATTING AT 96%. LEFT UPPER LOBE HAS INSPIRATORY WHEEZING AND ALL OTHER LOBES ARE CLEAR AND DIMINISHED. ORAL CARE COMPLETED USING CARE KITS IN ROOM WITH G. PROPOFOL INFUSING AT 45MCG/KG/MIN (21.6ML/HR) (PRADO LUMEN) AND NS AT 75ML/HR (RED LUMEN) TO LEFT UPPER ARM PICC LINE THAT FLUSHES WITH EASE. RIGHT AC 20G AND LEFT AC 18G PIV'S ARE PATENT, EACH FLUSHES WITH EASE. ADBOMEN ROUND AND DISTENDED, BOWEL TONES ARE ABSENT, NO BM NOTED TODAY. RIOS CATH IS PATENT, DRAINING CLOUDY YELLOW URINE WITH SEDIMENT TO GRAVITY. BILATERAL SOFT WRIST RESTRAINTS REMOVED AND ROM COMPLETED. RESTRAINTS REAPPLIED PER POLICY. (+)1 EDEMA NOTED TO EXTEMITIES WHICH ARE ELEVATED ON PILLOWS. SAFETY MEASURES IN PLACE. WILL CONTINUE TO MONITOR.
--- NOTE | 2020-09-21 | NUR ---
MIDNIGHT ROUNDS LYING IN SEMI FOWLERS WITH EYES CLOSED. PUPIL DIALATION REMAINS SLUGGISH BILATERALLY, EACH IS 2MM. RIGHT NARE NG TUME IS PATENT, DRAINGING DARK GREEN FLUID TO CONTINOUS SUCTION SET AT 50MM/HG. PLACEMENT VERIFIED WITH AIR BOLUS AND RESIDUAL CHECK. LINE IRRIGATED WITH 1000ML H20, 150ML ADDITIONAL OUTPUT NOTED IN SUCTION CANISTER. INTUBATED WITH 8.0 ETT THAT IS 24 AT THE LIP. AC VENT SET AT 350/14/8 AND 35% FIO2, SATTING AT 96%. LEFT UPPER LOBE HAS INSPIRATORY WHEEZING AND ALL OTHER LOBES ARE CLEAR, & DIMINISHED. ORAL CARE COMPLETED USING CARE KITS IN ROOM. PROPOFOL INFUSING AT 45MCG/KG/MIN (21.6ML/HR) TO PRADO LUMEN, LINE CHANGED. NS INFUSING AT 75ML/HR INTO THE RED LUMEN OF LEFT UPPER ARM PICC LINE THAT FLUSHES WITH EASE. RIGHT AC 20G AND LEFT AC 18G PIV'S ARE PATENT, EACH FLUSHES WITH EASE. ADBOMEN ROUND AND DISTENDED, BOWEL TONES ARE ABSENT IN ALL QUADS, AND NO BM NOTED TODAY. RIOS CATH IS PATENT, DRAINING CLOUDY YELLOW URINE WITH SEDIMENT TO GRAVITY. BILATERAL SOFT WRIST RESTRAINTS REMOVED AND ROM COMPLETED. RESTRAINTS REAPPLIED PER POLICY. (+)1 EDEMA NOTED TO EXTEMITIES WHICH ARE ELEVATED ON PILLOWS. SAFETY MEASURES IN PLACE. WILL CONTINUE TO MONITOR.
--- NOTE | 2020-09-21 02:45 | NUR ---
BATH COMPLETE BED BATH AND LINE CHANGE COMPLETED, TOLERATED WELL. SAFETY MEASURES IN PLACE. WILL CONTINUE TO MONITOR.
--- NOTE | 2020-09-21 04:00 | NUR ---
4AM ROUNDS LYING IN SEMI FOWLERS WITH EYES CLOSED. PUPILS REMAINS SLUGGISH AT 2MM. RIGHT NARE NG TUME IS PATENT, DRAINGING DARK GREEN FLUID TO CONTINOUS SUCTION SET AT 50MM/HG. PLACEMENT VERIFIED WITH AIR BOLUS AND RESIDUAL CHECK. LINE IRRIGATED WITH 1000ML H20, 250ML ADDITIONAL OUTPUT NOTED IN SUCTION CANISTER. INTUBATED WITH 8.0 ETT THAT IS 24 AT THE LIP. AC VENT SET AT 350/14/8 AND 35% FIO2, SATTING AT 97%. LEFT UPPER LOBE HAS INSPIRATORY WHEEZING AND ALL OTHER LOBES ARE CLEAR, & DIMINISHED. ORAL CARE COMPLETED USING CARE KITS IN ROOM. PROPOFOL INFUSING AT 45MCG/KG/MIN (21.6ML/HR) TO PRADO LUMEN, LINE CHANGED. NS INFUSING AT 75ML/HR INTO THE RED LUMEN OF LEFT UPPER ARM PICC LINE THAT FLUSHES WITH EASE. RIGHT AC 20G AND LEFT AC 18G PIV'S ARE PATENT, EACH FLUSHES WITH EASE. ADBOMEN ROUND AND DISTENDED, BOWEL TONES ARE ABSENT IN ALL QUADS, AND NO BM NOTED TODAY. RIOS CATH IS PATENT, DRAINING CLOUDY YELLOW URINE WITH SEDIMENT TO GRAVITY. BILATERAL SOFT WRIST RESTRAINTS REMOVED AND ROM COMPLETED. RESTRAINTS REAPPLIED PER POLICY. (+)1 EDEMA NOTED TO EXTEMITIES WHICH ARE ELEVATED ON PILLOWS. SAFETY MEASURES IN PLACE. WILL CONTINUE TO MONITOR.
[2020-09-21 04:38] LABS: Hematocrit 29.8 % (33.0-51.0); Hemoglobin 9.8 g/dL (11.5-16.0); Mean Corpuscular HGB 30.6 pg (26.0-34.0); Mean Corpuscular HGB Conc 32.9 g/dL (31.5-36.5); Mean Corpuscular Volume 93 fL (80-100); Mean Platelet Volume 9.7 fL (9.1-12.4); Platelet Count 127 K/mm3 (150-400); RDW Coefficient Variation 15.2 % (11.7-14.2); RDW Standard Deviation 52.1 fL (35.1-46.3); White Blood Cell Count 12.19 K/mm3 (4.00-11.30)
[2020-09-21 05:04] LABS: Albumin, Blood 2.3 g/dL (3.4-5.0); Anion Gap 10 mmol/L (6-16); Blood Urea Nitrogen 76 mg/dL (8-24); CO2, Blood 29 mmol/L (21-32); Calcium, Blood 8.2 mg/dL (8.5-10.1); Chloride, Blood 107 mmol/L (98-108); Creatinine, Blood 4.46 mg/dL (0.40-1.00); Glomerular Filtration Rate 10 (60-); Glucose, Blood 202 mg/dL (70-99); Phosphorus, Blood 4.5 mg/dL (2.5-4.9); Potassium, Blood 3.6 mmol/L (3.5-5.5); Sodium, Blood 146 mmol/L (136-145); Vancomycin, Random 13.3 ug/mL
[2020-09-21 05:44] LABS: BAND PERCENT MAN 7 % (0-8); BASOPHILS PERCENT MAN 0 % (0-2); EOSINOPHILS ABSOLUTE MAN 0.73 K/mm3 (0.00-0.68); EOSINOPHILS PERCENT MAN 6 % (0-6); LYMPHOCYTES ABSOLUTE MAN 1.34 K/mm3 (0.84-5.20); LYMPHOCYTES PERCENT MAN 11 % (21-46); MONOCYTES ABSOLUTE MAN 0.36 K/mm3 (0.16-1.47); MONOCYTES PERCENT MAN 3 % (4-13); NEUTROPHILS ABSOLUTE MAN 9.75 K/mm3 (1.96-9.15); SEG NEUTROPHILS PERCENT MAN 73 % (41-73); TOTAL CELLS COUNTED 100
--- NOTE | 2020-09-21 06:29 | NUR ---
SHIFT SUMMARY LYING IN SEMI FOWLERS WITH EYES CLOSED. PUPILS REMAINS SLUGGISH AT 2MM. RIGHT NARE NG TUME IS PATENT, DRAINGING DARK GREEN FLUID TO CONTINOUS SUCTION SET AT 50MM/HG. PLACEMENT VERIFIED WITH AIR BOLUS AND RESIDUAL CHECK. INTUBATED WITH 8.0 ETT THAT IS 24 AT THE LIP. AC VENT SET AT 350/14/8 AND 35% FIO2, SATTING AT 96%. LEFT UPPER LOBE HAS INSPIRATORY WHEEZING AND ALL OTHER LOBES ARE CLEAR, & DIMINISHED. PROPOFOL INFUSING AT 45MCG/KG/MIN (21.6ML/HR) TO PRADO LUMEN, LINE CHANGED. NS INFUSING AT 75ML/HR INTO THE RED LUMEN OF LEFT UPPER ARM PICC LINE THAT FLUSHES WITH EASE. RIGHT AC 20G AND LEFT AC 18G PIV'S ARE PATENT, EACH FLUSHES WITH EASE. ADBOMEN ROUND AND DISTENDED, BOWEL TONES ARE ABSENT IN ALL QUADS, AND NO BM NOTED TODAY. RIOS CATH IS PATENT, DRAINING CLOUDY YELLOW URINE WITH SEDIMENT TO GRAVITY. BILATERAL SOFT WRIST RESTRAINTS REMIAN INTACT PER POLICY. (+)1 EDEMA NOTED TO EXTEMITIES WHICH ARE ELEVATED ON PILLOWS. SAFETY MEASURES IN PLACE. WILL CONTINUE TO MONITOR AND GIVE HAND OFF TO ONCOMING SHIFT USING SBAR DURING BEDSIDE REPORT.
--- NOTE | 2020-09-21 06:32 | NUR ---
FAMILY PT'S SISTER UPDATED ON PT'S STATUS.
--- NOTE | 2020-09-21 07:05 | NUR ---
ASSUMED CARE BEDSIDE REPORT TAKEN FROM NIGHT RN. PT INTUBATED AND SEDATED. RESTING IN BED WITH BILATERAL WRIST RESTRAINTS IN PLACE. VSS, ABDOMINAL DISTENTION OBVIOUS AND ABDOMINAL PRESSURE IS 8. PROP AT 45, NS @ 75, RIOS IN PLACE AND VENT SETTINGS PS W/ PEEP 5, VT 350 AND 16 RR. PT APEARS COMFORTABLE, WILL CONTINUE TO MONITOR.
--- NOTE | 2020-09-21 11:01 | NUR ---
ABDOMINAL DISTENSION SEEMS MORE PRONOUNCED, SO ABD PRESSURE RECHECKES AND IT HAS INCREASED TO 14. URINE OUTPUT FOR MORNING SHIFT IS 275. DR. LUDWIG BEDSIDE AND UPDATED ON PRESSURE. PT IS EDEMATOUS, SO FLUIDS STOP[PED AND HE WILL INFORM LIZ OF CHANGE. POSSIBLE HE WILL ADD LASIX SOMETIME TODAY.
--- NOTE | 2020-09-21 13:15 | NUR ---
SON CALLED FOR AN UPDATE. STATES HIS SISTER WILL BE IN TODAY TO SEE HER. UPDATE GIVEN AND ALL QUESTIONS ANSWERED.
--- NOTE | 2020-09-21 18:26 | NUR ---
ADMIT: 09/16/20 DISCHARGE: Pancreatitis DX: CC: PRISCILA CALL: RESIDENCE: Home CAREGIVER: Makayla Traylor, Family Member, DX: HTN, CKD-stage 1, COPD, GERD, see list DME: plantar fasciitis arch sleeve CCM: none HOME HEALTH: none SUMMARY: Admit 09/16/20 09/21/[address] Purdy patient remains in ICU intubated. Also being seen by Dr Mikey ASTUDILLO for discharge at this time. IMPRESSION: 75-year-old female with likely gallstone pancreatitis. 09/16/20 Admit 1: Pancreatitis, acute A/P: Lipase severely elevated at 19,101. CT and MRCP results above. Patient meets sepsis criteria but has no fever/chills or evidence of cholangitis or cholecystitis.
--- NOTE | 2020-09-21 19:00 | NUR ---
SHIFT SUMMARY PT REMAINS INTUBATED WITH ONLY PROPOFOL @ 45. NS STOPPED DUE TO EDEMA AND CLINIMEX STARTED AT 45ML/HR FOR NUTRITION. ABDOMINAL PRESSURE REMAINS FROM 11 TO 15, OUTPUT FROM NG CONTINUES TO BE GREEN AND THICK, REQUIRING FLUSH Q4 HRS. URINE OUTPUT MARGINAL WITH 575ML FOR SHIFT. BOWEL TONES ARE STILL ABSENT. NO NEW ORDERS FROM DR. LIZ
--- NOTE | 2020-09-21 22:00 | NUR ---
SHIFT ASSESSMENT ASSUMED CARE OF PT @ 1900, REPORT RECV'D FROM AURELIA TORRES. PT INTUBATED AND SEDATED, PILLOWS UNDER HER R SIDE. PROPOFOL @ 45MCG/KG/MIN. VENT SETTINGS-AC: 14/350/8/35% c O2 SATS > 90%. CLINIMIX INFUSING INTO DEONTE PICC. ABDOMEN DISTENDED AND FIRM. BT'S ABSENT. RIOS CATH PATENT, DRAINING YELLOW URINE TO GRAVITY. ABD PRESSURES Q SHIFT, WILL PERFORM SHORTLY. WILL CONTINUE TO MONITOR.
[2020-09-22 03:19] LABS: BASOPHILS ABSOLUTE AUTO 0.04 K/mm3 (0.00-0.23); BASOPHILS PERCENT AUTO 0 % (0-2); EOSINOPHILS ABSOLUTE AUTO 0.62 K/mm3 (0.00-0.68); EOSINOPHILS PERCENT AUTO 5 % (0-6); Hematocrit 28.7 % (33.0-51.0); Hemoglobin 9.5 g/dL (11.5-16.0); IMMATURE GRAN ABSOLUTE AUTO 0.35 K/mm3 (0.00-0.10); IMMATURE GRAN PERCENT AUTO 3 % (0-1); LYMPHOCYTES ABSOLUTE AUTO 0.68 K/mm3 (0.84-5.20); LYMPHOCYTES PERCENT AUTO 5 % (21-46); MONOCYTES ABSOLUTE AUTO 1.27 K/mm3 (0.16-1.47); MONOCYTES PERCENT AUTO 9 % (4-13); Mean Corpuscular HGB 30.8 pg (26.0-34.0); Mean Corpuscular HGB Conc 33.1 g/dL (31.5-36.5); Mean Corpuscular Volume 93 fL (80-100); Mean Platelet Volume 9.9 fL (9.1-12.4); NEUTROPHILS ABSOLUTE AUTO 10.82 K/mm3 (1.96-9.15); NEUTROPHILS PERCENT AUTO 79 % (41-73); Platelet Count 139 K/mm3 (150-400); RDW Coefficient Variation 15.5 % (11.7-14.2); RDW Standard Deviation 52.8 fL (35.1-46.3); Red Blood Cell Count 3.08 M/mm3 (3.80-5.20); White Blood Cell Count 13.78 K/mm3 (4.00-11.30)
[2020-09-22 03:34] LABS: Albumin, Blood 1.8 g/dL (3.4-5.0); Anion Gap 10 mmol/L (6-16); Blood Urea Nitrogen 92 mg/dL (8-24); Bun/Creatinine Ratio 20.1 (12.0-20.0); CO2, Blood 28 mmol/L (21-32); Calcium, Blood 8.2 mg/dL (8.5-10.1); Chloride, Blood 109 mmol/L (98-108); Creatinine, Blood 4.57 mg/dL (0.40-1.00); Glomerular Filtration Rate 10 (60-); Glucose, Blood 329 mg/dL (70-99); Phosphorus, Blood 5.1 mg/dL (2.5-4.9); Potassium, Blood 3.6 mmol/L (3.5-5.5); Sodium, Blood 147 mmol/L (136-145); Triglycerides 372 mg/dL (30-160)
[2020-09-22 04:12] LABS: PO2 Arterial 70.2 mmHg (80-100)
--- NOTE | 2020-09-22 06:23 | NUR ---
SHIFT SUMMARY PT REMAINS INTUBATED AND SEDATED, NO CHANGES IN VENT SETTINGS OR PROPOFOL GTT. Q SHIFT CVP OF 13. NG ON CONTINUOUS SUCTION c DARK, THICK FLUID. CBG RISING AFTER CLINIMIX STARTED ON 09-21-20. DR IGLESIAS NOTIFIED, PT NOW ON LISPRO, MED SS. NO OTHER SIGNIFICANT CHANGES T/O THE NIGHT. WILL CONTINUE TO MONITOR. REPORT TO ONCOMING NURSE.
--- NOTE | 2020-09-22 11:00 | NUR ---
AM NOTE... ASSUMED CARE OF PT AT 0700, PT IS INTUBATED AND SEDATED ON PROPOFOL AT 45MCG. VENT SETTINGS AC:14/350/8/35% ET TUBE IS 8.0 AND 24 AT THE TEETH.RR EVEN AND UNLABORED 18-20'S. L/S CLEAR AND DIM T/O. PT IS IN NSR IN THE 80'S-90'S. BP STABLE WITH MAPS > 65. PT HAS 1+ EDEMA TO HER BLE AND BUE. BT ABSENT ON AUSCULTATION, ABD IS SEVERELY DISTENDED AND FRIM TO PALP. NG TUBE IS PATENT AND SET TO CONT SUCTION. CANISTER WAS CHANGED AND RIOS IS PATENT AND DRAINING YELLOW URINE TO GRAVITY. PICC LINE IN PLACE TO THE LUE RUNNING CLINIMIX, TKO AND PROPOFOL. THIS RN SPOKE WITH DR. LIZ WHO ASKED FOR THE SISTER KATINA'S PHONE NUMBER TO CALL AND TALK WITH HER ABOUT DIALYSIS, PER DR. LIZ'S DISCUSSION WITH THE SISTER KATINA SHE WANTS DIALYSIS DONE IF NEEDED. WILL CONTINUE TO MONITOR.
[2020-09-22 13:09] LABS: A/G RATIO 1.5 (0.7-1.7); ALBUMIN 2.8 g/dL (2.9-4.4); ALPHA-1-GLOBULIN 0.4 g/dL (0.0-0.4); ALPHA-2-GLOBULIN 0.7 g/dL (0.4-1.0); BETA GLOBULIN 0.5 g/dL (0.7-1.3); GAMMA GLOBULIN 0.5 g/dL (0.4-1.8); IMMUNOGLOBULIN A, QN, SERUM 75 mg/dL (64-422); IMMUNOGLOBULIN G, QN, SERUM 433 mg/dL (586-1602); IMMUNOGLOBULIN M, QN, SERUM 41 mg/dL (26-217); M-SPIKE Not Observed g/dL (Not Observed); PROTEIN, TOTAL, SERUM 4.8 g/dL (6.0-8.5)
--- NOTE | 2020-09-22 18:22 | NUR ---
SHIFT SUMMARY.... NO ACUTE NEGATIVE CHANGES NOTED SINCE THIS AM. PT'S VS HAVE BEEN STABLE T/O SHIFT. PT HAS BEEN ON PROPOFOL RUNNING AT 40MCG/KG/MIN, NO CHANGE TO THE VENT SETTINGS OF AC:14/350/8/35%. PT'S NG TUBE RUNNING TO SUCTION PER ORDERS, GASTRIC SECRETIONS HAVE GREATLY DECREASED FROM EARLIER IN THE SHIFT. RIOS IS PATENT AND DRAINING DARK YELLOW URINE WITH SEDIMENT. PT DID NOT HAVE A BM THIS SHIFT. PT'S SISTER KATINA AT THE BEDSIDE FOR VISITING HOURS, SHE WAS UPDATED AND ALL OF HER QUESTIONS WERE ANSWERED TO HER SATISFACTION. DR. LUDWIG AT THE BEDSIDE TO UPDATE PT'S SISTER WELL. CALL LIGHT IN REACH WILL CONTINUE TO MONITOR UNTIL REPORT IS GIVEN TO ONCOMING RN.
--- NOTE | 2020-09-22 20:00 | NUR ---
ASSUMED CARE OF PT AT 1915. REPORT RECEIVED AT BEDSIDE. PT PRESENTS IN BED, INTUBATED. - AC 14, Tv 350, FIO2 30%, PEEP 8. PT TOLERATING THIS WELL. LIWS RETURNS DARK COLORED GASTRIC FLUIDS. HAS ABDOMINAL DISTENTION. HOLLOW SOUNDS PER ASSESSMENT FROM PERCUSSION. TOLERATING INTUBATION WELL. WILL CONTINUE TO MONITOR. WILL REVIEW CHART AND PLAN OF CARE FOR THIS PT.
--- NOTE | 2020-09-23 | NUR ---
FULL BEDBATH COMPLETED FOR PT. NO ISSUES TO REPORT. NO S/S DISTRESS. PT CONTINUES ON VENT WITH PREVIOUSLY NOTED SETTINGS. MAINTAINS > 90 PERCENT SATURATIONS. WILL CONTINUE TO MONITOR.
[2020-09-23 01:10] LABS: (LD) FRACTION 1 10 % (17-32); (LD) FRACTION 2 18 % (25-40); (LD) FRACTION 3 11 % (17-27); (LD) FRACTION 4 9 % (5-13); (LD) FRACTION 5 52 % (4-20); LDH 466 IU/L (119-226)
[2020-09-23 05:26] LABS: Hematocrit 28.8 % (33.0-51.0); Hemoglobin 9.4 g/dL (11.5-16.0); Mean Corpuscular HGB 30.5 pg (26.0-34.0); Mean Corpuscular HGB Conc 32.6 g/dL (31.5-36.5); Mean Corpuscular Volume 94 fL (80-100); Mean Platelet Volume 10.4 fL (9.1-12.4); Platelet Count 180 K/mm3 (150-400); RDW Coefficient Variation 15.8 % (11.7-14.2); RDW Standard Deviation 54.1 fL (35.1-46.3); Red Blood Cell Count 3.08 M/mm3 (3.80-5.20); White Blood Cell Count 17.14 K/mm3 (4.00-11.30)
[2020-09-23 05:30] LABS: Albumin, Blood 1.6 g/dL (3.4-5.0); Anion Gap 11 mmol/L (6-16); Blood Urea Nitrogen 104 mg/dL (8-24); Bun/Creatinine Ratio 24.5 (12.0-20.0); CO2, Blood 25 mmol/L (21-32); Calcium, Blood 8.2 mg/dL (8.5-10.1); Chloride, Blood 112 mmol/L (98-108); Creatinine, Blood 4.25 mg/dL (0.40-1.00); Glomerular Filtration Rate 11 (60-); Glucose, Blood 406 mg/dL (70-99); Magnesium, Blood 2.1 mg/dL (1.6-2.4); Potassium, Blood 3.6 mmol/L (3.5-5.5); Sodium, Blood 148 mmol/L (136-145)
--- NOTE | 2020-09-23 05:36 | NUR ---
PT HAS WEAN TRIAL THIS AM. SEDATION WITH PROPOFOL ON STANDBY. PT VAGUELY WILL MOVE HEAD AND EYES TOWARDS HER NAME BEING CALLED. SOME QUESTIONABLE COMMANDS TO NOD HEAD OR BLINK HER EYES. SHE CURRENTLY IS ON PRESSURE SUPPORT 10 WITH PEEP 5. FIO2 REMAINS AT 40%. NGT CONTINUES AT LOW INTERMITTENT SUCTION. THICK GREEN/DARK RETURN. PT TOLERATED Q 2 HOUR TURNS THROUGHOUT THE NIGHT. WILL CONTINUE TO MONITOR PT, AND WILL REPORT OFF TO ONCOMING RN.
[2020-09-23 06:38] LABS: BAND PERCENT MAN 9 % (0-8); BASOPHILS PERCENT MAN 0 % (0-2); EOSINOPHILS ABSOLUTE MAN 0.51 K/mm3 (0.00-0.68); EOSINOPHILS PERCENT MAN 3 % (0-6); LYMPHOCYTES ABSOLUTE MAN 0.17 K/mm3 (0.84-5.20); LYMPHOCYTES PERCENT MAN 1 % (21-46); MONOCYTES ABSOLUTE MAN 0.68 K/mm3 (0.16-1.47); MONOCYTES PERCENT MAN 4 % (4-13); NEUTROPHILS ABSOLUTE MAN 15.76 K/mm3 (1.96-9.15); SEG NEUTROPHILS PERCENT MAN 83 % (41-73); TOTAL CELLS COUNTED 100
[2020-09-23 07:10] LABS: ANTIGLOMERULAR BM AB 3 units (0-20)
--- NOTE | 2020-09-23 10:38 | NUR ---
AM NOTE... ASSUMED CARE OF PT AT 0715, PT IS INTUBATED BUT OFF SEDATION AT THE START OF THIS SHIFT. PT'S EYES ARE OPEN PT WILL LOOK TOWARDS LOUD SOUNDS, PT IS ABLE TO BLINK IN RESPONSE TO QUESTIONS BUT UNABLE TO SQUEEZE HANDS OR FOLLOW OTHER DIRECTIONS. L/S CLEAR ON THE RIGHT SIDE, EXP WHEEZES HEARD ON THE LEFT SIDE. RR 16-20 EVEN UNLABORED. VENT SETTINGS ARE: PRESSURE SUPPORT 10/5 AND 30%. PT HAS SEVERE ABD DISTENTION BUT IS NOT HARD IT WAS YESTERDAY, THIS HAS IMPROVED SLIGHTLY FROM YESTERDAY, BT VERY HYPOACTIVE AND TENDER TO PALP. PT'S RIOS IS PATENT AND DRAINING CLOUDY YELLOW URINE TO GRAVITY. PT HAS 1+ PITTING EDEMA TO HER BUE AND BLE. PT IS IN SR, BP STABLE WITH MAPS>65. IAP WAS 16 THIS AM. WILL CONTINUE TO MONITOR.
[2020-09-23 13:11] LABS: M-SPIKE, % Not Observed % (Not Observed)
--- NOTE | 2020-09-23 13:14 | NUR ---
PT UPDATE... AT 0930 DR. LUDWIG IN THE ROOM, TOLD THIS RN TO STOP THE OG SUCTION AND CLAMP THE OG TUBE. PT SEEMS TO BE WAKING UP MORE, PT IS MOVING HER LEGS AND ATTEMPTING TO PULL UP HER ARMS TO GRAB THE ET TUBE. PT IS ALSO GRIMACING AND LOOKS LIKE SHE IS CRYING AT TIMES. PT DOES NOT RESPOND TO COMMANDS AT THIS TIME. PT IS TOLERATING THE CLAMPED OG TUBE AT THIS TIME. WILL CONTINUE TO MONITOR.
[2020-09-23 14:11] LABS: ANA DIRECT Negative (Negative); ANTIMYELOPEROXIDASE (MPO) ABS <9.0 U/mL (0.0-9.0); ANTIPROTEINASE 3 (PR-3) ABS <3.5 U/mL (0.0-3.5); ATYPICAL PANCA <1:20 titer (Neg:<1:20); CYTOPLASMIC (C-ANCA) <1:20 titer (Neg:<1:20); PERINUCLEAR (P-ANCA) <1:20 titer (Neg:<1:20)
--- NOTE | 2020-09-23 16:10 | NUR ---
09/23/20- per chart review with Dr. Cheema, pt is still intubated and is vent dependent. When she woke up prior, she aspirated gastric contents and this could be cause of sepsis. Pt is responsive to sounds/her name and answer questions with head shaking and squeezing hands. No plan for d/c at this time.-alex
--- NOTE | 2020-09-23 18:10 | NUR ---
SHIFT SUMMARY... NO ACUTE NEGATIVE CHANGES NOTED THIS SHIFT. PT'S VS HAVE BEEN STABLE, BP ON THE HIGHER SIDE BUT PER DR. LUDWIG HER BP IS OKAY LONG HER SBP <160. PT'S OTHER VS STABLE. PT CONTINUES TO BE ON PRESSURE SUPPORT SETTINGS 10/5 AND 30% W/O2 SATS >90%. PT WAS PUT BACK ON PROPOFOL AT 1545 D/T INCREASED ANXIETY AND AGITATION, PLAN IS TO ATTEMPT A WEAN TOMORROW PER DR. LUDWIG. PT'S RIOS IS PATENT AND DRAINING CLOUDY YELLOW URINE TO GRAVITY. PT HAS NOT HAD A BM SINCE 09/17. PT'S IAP WAS 16 WHEN CHECKED THIS AM. PT'S ABD IS UNCHANGED FROM THIS AM ASSESSMENT. 150MLS OF DARK GREEN BILE WAS REMOVED W/ INT SUCTION TO HER NG TUBE. CALL LIGHT IN REACH WILL CONTINUE TO MONITOR UNTIL REPORT IS GIVEN TO ONCOMING RN.
--- NOTE | 2020-09-23 19:09 | NUR ---
ADDENDUM NOTE: [id number] ABDOMINAL PRESSURE DONE WHICH RETURNS VALUE 8
--- NOTE | 2020-09-23 20:00 | NUR ---
ASSUMED CARE OF PT AT 1915. REPORT RECEIVED AT BEDSIDE. PT PRESENTS IN BED. VENTED - PS 10, PEEP 5 FIO2 30%. PT TOLERATING THIS WELL. ABDOMINAL PRESSURE DONE WHICH REVEALS 15. PT ON LOW DOSE PROPOFOL AT 30 MCG'S/KG/MIN. WILL REVIEW CHART AND PLAN OF CARE FOR THIS PT.
--- NOTE | 2020-09-23 23:21 | NUR ---
PT TOLERATES Q 2 HOUR TURNS IN BED. NGT WITH THICK BROWN/GREEN SECRETIONS. TOLERATING VENT WITH INCREASE IN PROPOFOL TO 35 MCG'S/KG/MIN. NO ISSUES TO NOTE AT THIS TIME.
--- NOTE | 2020-09-23 23:30 | NUR ---
[employer] EMR DOWNTIME SCHEDULED AT 9827. PLEASE SEE ICU DOWNTIME CHART FOR CONTINUED PT ASSESSMENTS AND INTERVENTIONS
[2020-09-24 05:16] LABS: Hematocrit 28.3 % (33.0-51.0); Hemoglobin 9.3 g/dL (11.5-16.0); Mean Corpuscular HGB 30.4 pg (26.0-34.0); Mean Corpuscular HGB Conc 32.9 g/dL (31.5-36.5); Mean Corpuscular Volume 93 fL (80-100); Mean Platelet Volume 10.1 fL (9.1-12.4); Platelet Count 229 K/mm3 (150-400); RDW Coefficient Variation 15.7 % (11.7-14.2); RDW Standard Deviation 53.3 fL (35.1-46.3); Red Blood Cell Count 3.06 M/mm3 (3.80-5.20); White Blood Cell Count 15.37 K/mm3 (4.00-11.30)
[2020-09-24 05:40] LABS: BAND PERCENT MAN 22 % (0-8); BASOPHILS PERCENT MAN 0 % (0-2); EOSINOPHILS ABSOLUTE MAN 0.46 K/mm3 (0.00-0.68); EOSINOPHILS PERCENT MAN 3 % (0-6); LYMPHOCYTES ABSOLUTE MAN 0.61 K/mm3 (0.84-5.20); LYMPHOCYTES PERCENT MAN 4 % (21-46); MONOCYTES ABSOLUTE MAN 0.61 K/mm3 (0.16-1.47); MONOCYTES PERCENT MAN 4 % (4-13); NEUTROPHILS ABSOLUTE MAN 13.67 K/mm3 (1.96-9.15); SEG NEUTROPHILS PERCENT MAN 67 % (41-73); TOTAL CELLS COUNTED 100
[2020-09-24 05:44] LABS: Albumin, Blood 1.8 g/dL (3.4-5.0); Anion Gap 10 mmol/L (6-16); Blood Urea Nitrogen 109 mg/dL (8-24); Bun/Creatinine Ratio 28.5 (12.0-20.0); CO2, Blood 26 mmol/L (21-32); Calcium, Blood 8.8 mg/dL (8.5-10.1); Chloride, Blood 116 mmol/L (98-108); Creatinine, Blood 3.82 mg/dL (0.40-1.00); Glomerular Filtration Rate 12 (60-); Glucose, Blood 292 mg/dL (70-99); Phosphorus, Blood 4.7 mg/dL (2.5-4.9); Potassium, Blood 3.2 mmol/L (3.5-5.5); Sodium, Blood 152 mmol/L (136-145)
--- NOTE | 2020-09-24 06:47 | NUR ---
PLEASE SEE [employer] DOWNTIME CHARTING ON HARD COPY. PT PLACED ON SEDATION VACATION THIS AM, AND HAS BEEN OFF SINCE 0500. TOLERATING PRESSURE SUPPORT WELL. PT OPENS EYES SPONTANEOUSLY. WILL LOOK TOWARDS VERBAL STIMULI, BUT DOES NOT FOLLOW COMMANDS AT THIS TIME. ORDERS RECEIVED FOR POTASSIUM REPLACEMENT FROM DR LIZ. THIS IN PROCESS OF BEING DONE. WILL CONTINUE TO MONITOR PT, AND WILL REPORT OFF TO ONCOMING RN.
--- NOTE | 2020-09-24 07:30 | NUR ---
PT RECEIVED FROM AURELIA HIRSCH. HER PROPOFOL IS OFF, HER CPN IS @45ML/HR. SHE HAS A K+ RIDER INFUSING AT 10MEQ/HR. HER NG TUBE IS AT LIS, PICC LINE INTACT AND INFUSING, DEONTE. VENT. SPONTANEOUS AT 30% WITH PEEP 5. WHEEZES IN LEFT LOWER LOBE, PULSES GOOD AND STRONG. HER BLOOD PRESSURE IS ELEV. MEDICATED WITH LABETOLOL 30MG. PT NODS HER HEAD, SHAKES HER HEAD, DOESN'T FOLLOW COMMANDS PER SE, NO HAND SQUEEZE OR TOE WIGGLE, SEEMS APPROPRIATE WITH THE HEAD NOD AND HEAD SHAKES. WILL CONTINUE TO MONITOR.
--- NOTE | 2020-09-24 09:50 | NUR ---
PICC LINE PULLED OUT 3CM PER TO SHERYL RIVERA RN.
--- NOTE | 2020-09-24 11:18 | NUR ---
PT GOING TO BE EXTUBATED. SHE CONTINUES TO SHAKE HER HEAD "NO" BUT DOES FOLLOW COMMANDS. HAS HAD HER TRIALING FOR THE LAST 30+ MINUTES. PT PREPARED AND READY FOR EXTUBATION, TOLERATED THE EXTUBATION WELL. BIPAP PLACED 12/5.
--- NOTE | 2020-09-24 16:23 | NUR ---
ADMIT: 09/19/20 DISCHARGE: DX: hip pain CC: [email or web address] ADMIT: 08/28/20 DISCHARGE: 09/04/20 DX: Left hip pain CC: [email or web address] ADMIT: 04/29/20 DISCHARGE: 05/04/20 DX: CELLULITIS CC: CPEABODY Page 2 PRISCILA CALL: 08/28/20 [facility]. Erin Mata RESIDENCE: Trailer, unsuitable for living per paramedics CAREGIVER: SELF DAUGHTER TREVOR, . 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 He will continue to follow this process. Gregorio had Regine screen for admitting to snf. Regine turned her down for now. Will consider reviewing again if she is in process for medicaid, concerned with her leaving [facility]. Met with Kaleigh, asked if I could contact her son to help provide documents for Medicaid to apply for services. She said she does not want him involved. I asked if she would consider staying with family post snf discharge, She said NO, just throw me out on the streets. I dicussed this conversation with Anali [facility] director to keep her update. Kaleigh stated that her daughter is contacting janis cyr to complete work on [facility]. I contacted daughter Jose David today. Yes she is sending him a note by mail to contact her, no mention of hiring him for work. As of today I do not have a solid discharge plan post SNF discharge. I am unable to look for a accepting SNF until I have a plan in place. cp
--- NOTE | 2020-09-24 18:11 | NUR ---
Spiritual care note: I met with Cat's sister, Dary, at bedside. She expresses some unrealistic hopes for recovery, telling me that she expects pt to completely recover to the way she was more than a decade ago. I affirmed obvious love and assured her of excellent care by [facility] staff. Neither pt or famikly is scientology, but Dary appeared to benefit from theraputic l;istening and gentle grief counsellor. Continued [id number] explainations of pt's illness will be beneficial. banking services clerk services will remain available.
--- NOTE | 2020-09-24 18:25 | NUR ---
NITA IS ON BIPAP 07/04. SHE CONTINUES WITH HER HEAD SHAKES AND NODS, THEY CONTINUE TO SEEM APPROPRIATE TO THE QUESTION. SHE HAS CONTINUED WITHOUT RESTRAINTS SINCE EXTUBATION AND WE HAVE HAD NO SPONTANEOUS MOVEMENT OF ANY EXTREMITIES. WE WERE ABLE TO PRODUCE A SQUEEZE ON THE RIGHT HAND AND A WIGGLE OF THE BIG TOE ON THE RIGHT SIDE. THE EXTREMITIES REMAIN FLACCID, IF MOVED AND LET GO, WITHOUT ANY PURPOSEFUL MOVEMENT. SHE CONTINUES WITH HER MOUTH OPEN IF SHE IS STRUGGLING FOR AIR, WE HAVE ENCOURAGED HER TO SPEAK, TO CLOSE HER MOUTH, TO HUMM, WITHOUT ANY RESPONSE. HER NG REMAINS CLAMPED AT THIS TIME. CPN,LIPIDS, AND D5 ARE INFUSING PER ORDERS OF . RIOS DRAINING TO GRAVITY, DARK YELLOW IN COLOR. IAP MEASURED AT 12. SISTER WAS IN TO VISIT, DID NOT ELICIT A RESPONSE, VERBALLY OR MOVEMENT. WILL GIVE REPORT TO ONCOMING SHIFT.
--- NOTE | 2020-09-24 20:00 | NUR ---
ASSUMED CARE OF PT AT 1915. REPORT RECEIVED AT BEDSIDE. PT PRESENTS IN BED. WEARING BIPAP 12/5 FIO2 40 PERCENT. PT TOLERATING THIS WELL. OPENS EYES AND TRACKS TO VERBAL. WILL GOAT HERDER UPON COMMAND. WILL NOD HEAD SOME TO SIMPLE QUESTIONS. ABDOMEN REMAINS DISTENDED. DOES HAVE HYPOACTIVE BOWEL TONES IN ALL FOUR QUADRANTS. NO S/S DISTRESS TO NOTE. WILL REVIEW CHART AND PLAN OF CARE FOR THIS PT.
--- NOTE | 2020-09-25 | NUR ---
DID PLACE NGT TO LIWS WITH RETURN OF SOME GREEN/DARK SECRETIONS. OF NOTE: PT DOES HAVE BOWEL TONES IN ALL QUADRANTS WHICH IS IMPROVEMENT WITH DX OF ILEUS. TOLERATING Q 2 HOUR TURNS IN BED. WILL OPEN HER EYES WITH TACTILE STIMULI. WILL CONTINUE TO MONITOR.
[2020-09-25 05:14] LABS: PO2 Arterial 83.6 mmHg (80-100); pH Blood Arterial 7.15 (7.35-7.45)
--- NOTE | 2020-09-25 05:56 | NUR ---
PT HAS HAD DECREASING TIDAL VOLUMES AND DECREASING LOC THIS AM. PT'S TIDAL VOLUMES RANGE FROM 180 TO 275. RT TO ROOM TO MAKE ADJUSTMENTS. ABG DONE WITH RESULTING VALUE OF PH 7.15, PCO2 71. MINUTE VENTILATION 8. BIPAP ADJUSTED TO 22/5 WITH BACK UP RATE 18. MINUTE VENTILATION IMPROVES TO 14. CALL PLACED TO DR LUDWIG. SECONDARY TO PT'S IMPROVING MINUTE VENTILATION AND IMPROVED TIDAL VOLUMES. DR LUDWIG WILL HAVE DR SETH READRESS THIS MORNING UNLESS OTHER ISSUES PRESENT. WILL CONTINUE TO MONITOR PT CLOSELY, AND WILL REPORT OFF TO ONCOMING RN.
[2020-09-25 06:04] LABS: BASOPHILS ABSOLUTE AUTO 0.06 K/mm3 (0.00-0.23); BASOPHILS PERCENT AUTO 0 % (0-2); EOSINOPHILS ABSOLUTE AUTO 0.33 K/mm3 (0.00-0.68); EOSINOPHILS PERCENT AUTO 2 % (0-6); Hematocrit 30.7 % (33.0-51.0); Hemoglobin 9.6 g/dL (11.5-16.0); IMMATURE GRAN ABSOLUTE AUTO 0.72 K/mm3 (0.00-0.10); IMMATURE GRAN PERCENT AUTO 4 % (0-1); LYMPHOCYTES ABSOLUTE AUTO 0.91 K/mm3 (0.84-5.20); LYMPHOCYTES PERCENT AUTO 5 % (21-46); MONOCYTES ABSOLUTE AUTO 1.07 K/mm3 (0.16-1.47); MONOCYTES PERCENT AUTO 5 % (4-13); Mean Corpuscular HGB 30.8 pg (26.0-34.0); Mean Corpuscular HGB Conc 31.3 g/dL (31.5-36.5); Mean Platelet Volume 10.2 fL (9.1-12.4); NEUTROPHILS ABSOLUTE AUTO 17.32 K/mm3 (1.96-9.15); NEUTROPHILS PERCENT AUTO 85 % (41-73); Platelet Count 248 K/mm3 (150-400); RDW Coefficient Variation 16.5 % (11.7-14.2); RDW Standard Deviation 59.7 fL (35.1-46.3); Red Blood Cell Count 3.12 M/mm3 (3.80-5.20); White Blood Cell Count 20.41 K/mm3 (4.00-11.30)
[2020-09-25 06:20] LABS: Albumin, Blood 1.9 g/dL (3.4-5.0); Anion Gap 9 mmol/L (6-16); Blood Urea Nitrogen 117 mg/dL (8-24); Bun/Creatinine Ratio 31.7 (12.0-20.0); CO2, Blood 26 mmol/L (21-32); Calcium, Blood 8.7 mg/dL (8.5-10.1); Chloride, Blood 113 mmol/L (98-108); Creatinine, Blood 3.69 mg/dL (0.40-1.00); Glomerular Filtration Rate 13 (60-); Glucose, Blood 379 mg/dL (70-99); Phosphorus, Blood 6.8 mg/dL (2.5-4.9); Potassium, Blood 4.1 mmol/L (3.5-5.5); Sodium, Blood 148 mmol/L (136-145)
[2020-09-25 06:24] LABS: Mean Corpuscular Volume 98 fL (80-100)
--- NOTE | 2020-09-25 07:30 | NUR ---
RECEIVING REPORT FROM AURELIA HIRSCH. PT NOTED TO HAVE INCREASED HEARTRATE AND LOW BLOOD PRESSURE. PT OPENS EYES WHEN SPOKEN TO, NO MOVEMENT, NO WORDS. BREATHING ON THE BIPAP AT 22/5 40%. LUNG SOUNDS DIMINISHED T/O HEART TONES GOOD BOWEL TONES + RIOS DRAINING DARK YELLOW TO GRAVITY PULSES IN HER EXTREMITIES WEAK EXTREMITIES COOL 5%DEXTROSE HANGING @50ML/HR CLINIMIX @ 85ML/HR.
--- NOTE | 2020-09-25 09:00 | NUR ---
IN TO SEE PT, SHE HAS NOT HAD ANY FURTHER EPISODES OF TACHYCARDIA ALTHOUGH HER BLOOD PRESSURE CONTINUES TO BE LOW. ORDERS RECEIVED. PT BLINKING HER EYES IN RESPONSE TO QUESTIONS. SHE BLINKS FOR YES AND CLOSES HER EYES AND LEAVES THEM CLOSED FOR NO. SHE CONTINUES TO NOT HAVE ANY SPONTANEOUS MOVEMENT OF ANY OF HER EXTREMITIES.
[2020-09-25 09:17] LABS: PCO2 Arterial 49.6 mmHg (35-45); PO2 Arterial 97.3 mmHg (80-100); pH Blood Arterial 7.28 (7.35-7.45)
[2020-09-25 10:56] LABS: Albumin, Blood 2.4 g/dL (3.4-5.0); Albumin/Globulin Ratio 0.8 (0.8-1.8); Bilirubin, Direct 0.8 mg/dL (0.0-0.3); Bilirubin, Indirect 0.4 mg/dL (0.1-0.7); Bilirubin, Total 1.2 mg/dL (0.1-1.0); Globulin, Blood 3.2 g/dL (2.2-4.0); Total Protein, Blood 5.6 g/dL (6.4-8.2)
[2020-09-25 12:05] LABS: Base Excess Venous -2.7 mmol/L; PCO2 Venous 50.2 mmHg (38-42); PO2 Venous 58.4 mmHg (38-42); pH Blood Venous 7.29 (7.34-7.37)
--- NOTE | 2020-09-25 13:41 | NUR ---
PT RESTING QUIETLY, BED REMAINS IN LEVEL POSITION FOR BLOOD PRESSURE, TOLERATES TURNING WELL. CONTINUES ON BIPAP.
--- NOTE | 2020-09-25 14:10 | NUR ---
09/25/20- PT ON BIPAP SINCE BEING EXTUBATED. SHE APPEARS TO BE TOLERATING IT WELL. PT RESPONDS TO VERBAL STIMULI. STAFF ARE ENCOURAGING PT TO COMMUNICATE NEEDS WITH HAND SQUEEZES AND VERBAL. NO PLAN FOR D/C AT THIS TIME. -MICHELE
--- NOTE | 2020-09-25 15:08 | NUR ---
PT SISTER KATINA HERE, VISITING PATIENT. RUBBING HER FEET AND PUTTING LOTION ON THEM. PT SEEMS CONTENT. STILL NON VERBAL, NO SPONTANEOUS MOVEMENT. CONTINUES TO BLINK FOR YES TO COMMUNICATE.
--- NOTE | 2020-09-25 15:53 | NUR ---
SISTER STATES THAT NITA IS FEELING PAINFUL AND WOULD LIKE HER MEDICATED. UPDATED ON HER U/O FOR THIS SHIFT SO FAR, PER 'S REQUEST. ORDERS RECEIVED. GIVEN.
--- NOTE | 2020-09-25 18:36 | NUR ---
NITA HAS BEEN MORE ALERT TODAY, SHE CONTINUES ON THE BIPAP 22/5 40%. NG TO LIS, NPO, ORAL CARE DONE, RIOS DRAINING TO GRAVITY, NO BMS. ABDOMEN REMAIN LARGE AND DISTENDED, TENDER TO TOUCH. THIGHS EDEMATOUS WELL. WEAK PULSES IN THE FEET. SHE CONTINUES TO OPEN HER EYES TO VOICE, BLINKS FOR YES, CLOSES HER EYES FOR NO. WAS MADE AWARE OF HER URINE OUTPUT FOR THE SHIFT, ORDERS WERE RECEIVED AND COMPLETED. SHE HAD A VISIT FROM HER SISTER AND IS NOW RESTING. LIPIDS INFUSING, CPN INFUSING, D5 INFUSING. WILL REPORT OFF TO NEXT SHIFT.
--- NOTE | 2020-09-25 19:30 | NUR ---
ASSUMING PT CARE: PT RESTING SUPINE IN BED. DOES NOT RESPOND TO VERBAL STIMULI BUT DOES WINCE @ PAINFUL STIMULI. SHE IS ABLE TO BLINK ONCE FOR "YES" AND CLOSE EYES TIGHTLY & SHAKE HEAD FOR "NO". UNABLE TO SQUEEZE HANDS OR FOLLOW COMMANDS. ABD IS VERY FIRM, TENDER TO PALP. NGT DRAINING DARK GREEN BILE, CONTINUOUS SUCTION @ 50mmHg. BiPAP IN PLACE @ 20/5 @ 40%. WILL CONTINUE TO MONITOR & REPORT APPROPRIATE.
--- NOTE | 2020-09-25 21:45 | NUR ---
PT FOUND TO BE FEBRILE @ 101.0, HOT TO THE TOUCH & DRY. PT APPEARS TO BE MORE UNCOMFORTABLE, WINCING EYES OFTEN & SHAKING HER HEAD. HOSPITALIST MARY UPDATED & NEW ORDERS RECEIVED FOR 650mg PT TYLENOL. PT TO BE MEDICATED SHORTLY. NO IMPROVEMENT IN NEURO STATUS.
--- NOTE | 2020-09-26 01:28 | NUR ---
UPDATE: PT CONTINUES TO HAVE AN ELEVATED IRREGULAR HR OF 90s-120s. ABD PRESSURES INCREASING FROM 17-22 W/ NO INC IN NGT SUCTION CONTENTS. DIAPHORETIC & CLAMMY WHICH IS CHANGED FROM PREVIOUS NOTATION. EACH ATTEMPT TO PROVIDE ORAL CARE, PT WAS UNABLE TO TOLERATE BEING OFF BiPAP & ON RA FOR LESS AND LESS AMT OF TIME. AFTER APPROX 2min OFF BiPAP, RESP RATE DEC FROM 30 TO 10 rr/min & SATS DEC TO 70s. IT WAS APPROX 10min BEFORE PT WAS ABLE TO RECOVER BACK 90% SPO2. DR MAR UPDATED ON PT STATUS & CONCERN FOR IMPENDING NEED FOR INTUBATION. VERBAL ORDERS GIVEN FOR PRECEDEX & DEC IN BiPAP PRESSURES. ORDERS PLACED. WILL CONTINUE TO MONITOR & REPORT APPROPRIATE.
[2020-09-26 04:59] LABS: Base Excess Venous -5.9 mmol/L; Bicarbonate Venous 19.3 mmol/L (24.0-30.0); PCO2 Venous 67.1 mmHg (38-42); PO2 Venous 108 mmHg (38-42); pH Blood Venous 7.14 (7.34-7.37)
[2020-09-26 05:18] LABS: Hematocrit 29.7 % (33.0-51.0); Hemoglobin 9.4 g/dL (11.5-16.0); Mean Corpuscular HGB 30.9 pg (26.0-34.0); Mean Corpuscular HGB Conc 31.6 g/dL (31.5-36.5); Mean Corpuscular Volume 98 fL (80-100); Mean Platelet Volume 10.7 fL (9.1-12.4); NRBC ABSOLUTE 0.04 K/mm3 (0.00-0.02); NRBC Auto 0.2 /100 WBC (0.0-0.2); Platelet Count 279 K/mm3 (150-400); RDW Coefficient Variation 16.6 % (11.7-14.2); RDW Standard Deviation 60.1 fL (35.1-46.3); Red Blood Cell Count 3.04 M/mm3 (3.80-5.20); White Blood Cell Count 21.35 K/mm3 (4.00-11.30)
[2020-09-26 05:38] LABS: Albumin, Blood 2.3 g/dL (3.4-5.0); Albumin/Globulin Ratio 0.7 (0.8-1.8); Bilirubin, Total 1.1 mg/dL (0.1-1.0); Bun/Creatinine Ratio 32.3 (12.0-20.0); Calcium, Blood 8.6 mg/dL (8.5-10.1); Creatinine, Blood 4.27 mg/dL (0.40-1.00); Globulin, Blood 3.1 g/dL (2.2-4.0); Potassium, Blood 3.8 mmol/L (3.5-5.5); Total Protein, Blood 5.4 g/dL (6.4-8.2)
[2020-09-26 06:28] LABS: BAND PERCENT MAN 11 % (0-8); BASOPHILS ABSOLUTE MAN 0.21 K/mm3 (0.00-0.23); BASOPHILS PERCENT MAN 1 % (0-2); EOSINOPHILS PERCENT MAN 0 % (0-6); LYMPHOCYTES ABSOLUTE MAN 0.42 K/mm3 (0.84-5.20); LYMPHOCYTES PERCENT MAN 2 % (21-46); MONOCYTES ABSOLUTE MAN 1.06 K/mm3 (0.16-1.47); MONOCYTES PERCENT MAN 5 % (4-13); NEUTROPHILS ABSOLUTE MAN 19.64 K/mm3 (1.96-9.15); SEG NEUTROPHILS PERCENT MAN 81 % (41-73); TOTAL CELLS COUNTED 100
--- NOTE | 2020-09-26 06:44 | NUR ---
SHIFT SUMMARY: PT REMAINS ON BiPAP @ 20/5 18/40%. GTTs: BICARB @ 50ml/HR, PRECEDEX @ 0.2mcg/kg/hr, LEVOPHED ON STANDBY. THROUGHOUT THE NIGHT, PT BECAME INC RESTLESS & UNABLE TO TOLERATE BiPAP W/ TACHYCARDIA @ TIMES. WHEN BiPAP WAS REMOVED SATS DEC SIGNIFICANTLY. AFTER PRECEDEX PT APPEARS MUCH MORE COMFORTABLY & IS ABLE TO TOLERATE BiPAP WELL. BP NOW STABLE W/OUT PRESSORS. PER ISABELA, PLAN FOR INTUBATION TODAY IF PT CONTINUES TO DECOMPENSATE OFF THE BiPAP.
--- NOTE | 2020-09-26 07:15 | NUR ---
PT RECEIVED FROM AURELIA COLINDRES. PT ON BIPAP 20/5 40%. MASK WITH LEAK, NG TUBE TO LIS WITH BILE/GREEN RETURN. PT NOT RESPONDING TO VERBAL STIMULI, PRECEDEX @ 0.2MCG/KG/HR, CPN INFUSING @85, BICARB INFUSING @ 50ML/HR, D5 INFUSING @ 50ML/HR. LEVOPHED OFF AT THIS TIME. RESPIRATIONS FLUCTUATING, ABDOMEN LARGELY DISTENDED, TENDER. RIOS DRAINING CLEAR YELLOW. HANDS EDEMATOUS. GOOD PULSES. NO SPONTANEOUS MOVEMENT. IAP MEASURED AT 38, WILL RECHECK.
[2020-09-26 09:07] LABS: PCO2 Arterial 52.7 mmHg (35-45)
--- NOTE | 2020-09-26 11:15 | NUR ---
STARTING PROCEDURE TO PLACE DIALYSIS CATH IN RIGHT GROIN. UNABLE TO GET ACCESS, MOVING TO RIGHT NECK. PATIENT TOLERATING WELL.
--- NOTE | 2020-09-26 13:00 | NUR ---
PT BEING PREPPED FOR DIALYSIS, PER . DIALYSIS CATH IN GOOD POSITION.
--- NOTE | 2020-09-26 14:33 | NUR ---
SISTER IN ROOM WITH AURELIA FLORES FROM DIALYSIS. PT STARTED ON LEVOPHED FOR LOW BLOOD PRESSURES. GOOD RESPONSE.
[2020-09-26 18:26] LABS: PCO2 Arterial 57.2 mmHg (35-45); PO2 Arterial 78.1 mmHg (80-100); pH Blood Arterial 7.29 (7.35-7.45)
--- NOTE | 2020-09-26 18:28 | NUR ---
NITA NOTED TO HAVE AN INCREASED HEART RATE AND BLOOD PRESSURE DROP, EKG DONE, PT IN AFIB W/RVR. NOTIFIED, STAT ABG ORDERED. NOTIFIED OF RESULTS, ORDERS RECEIVED.
--- NOTE | 2020-09-26 20:00 | NUR ---
ASSUMED PT CARE @ 1900. PT LAYS SUPINE IN BED. BiPAP IN PLACE 12/ 40%. PT UNRESPONSIVE TO NOXIOUS STIMULI, DOES NOT RECOIL W/ ORAL CARE. NO GAG, COUGH, SWALLOW. TOLERATING BiPAP WELL. PER PREVIOUS RN, PT HAS BEEN IN AFIB W/ RVR FOR APPROX 1HR W/ HR 120-130s. ISABELA UPDATED. PER ISABELA, PLACE LEVOPHED ON STANDBY FOR 15 MIN & ASSESS HR. HR & RHYTHM WAS UNCHANGED. VERBAL ORDERS GIVEN FOR AMNIODARONE BOLUS & DRIP, & CONTINUE W/ LEVOPHED.
--- NOTE | 2020-09-26 23:48 | NUR ---
UPDATE: PT HAS CONVERTED TO NSR W/ RATE IN THE 70s. BP STABLE W/ LEVOPHED @ 3mcg/min. PT CONTINUES TO TOLERATE BiPAP WELL @ 12/5 40%. PT ONLY ABLE TO TOLERATE VERY SHORT EPISODES OF ORAL CARE W/OUT SATs DECREASING TO LOW 80s. NO CHANGE IN NEURO STATUS, PT DOES NOT RECOIL W/ ORAL CARE. NO GAG, COUGH, SWALLOW REFLEX.
--- NOTE | 2020-09-27 03:00 | NUR ---
UPDATE: DURING ORAL CARE, SATS DEC QUICKLY FROM 90s-70s. RT CALLED TO BEDSIDE TO ASSIST. AFTER REPLACING BiPAP & INC FiO2 TO 100% FOR APPROX SEVERAL MINS PT CONTINUED TO SAT IN THE MID 60s. ISABELA CALLED TWICE, NO ANSWER. TONYA CALLED, NO ANSWER. MANAGER PULMONARY CALLED TO BEDSIDE TO ASSIST. BiPAP MASK CHANGED & BiPAP PRESSURES INC TO 22/5. SATS INC TO LOW 90s BUT UNABLE TO BE MAINTAINED. PT TAKING POOR TIDAL VOLUMES, 280-320. ANSWERING SERVICED CALLED & ISABELA RETURNED CALL TO DEPT. VERBAL ORDERS GIVEN FOR STAT ABG & TO CONTACT HOSPITALIST FOR INTUBATION.
[2020-09-27 03:37] LABS: PCO2 Arterial 84.5 mmHg (35-45); PO2 Arterial 92.9 mmHg (80-100); pH Blood Arterial 7.11 (7.35-7.45)
--- NOTE | 2020-09-27 04:00 | NUR ---
UPDATE: STAT ABG RECEIVED. ATTEMPTED TO CALL ISABELA, RECEIVED VOICEMAIL. TONYA @ BEDSIDE W/ RT & HAIRSPRING II INSPECTOR. PT MEDICATED W/ 150mg ETOMIDATE & 150mg SUCCINULCHOLINE. 7.0 ETT PLACED, 24cm @ THE TEETH. +COLOR CHANGE, & +TANIKA BREATH SOUNDS. EPISODE OF HYPOTENSION POST INTUBATION W/ MAPs 50s. LEVO INC TO 4mcg/min. VERBAL ORDERS GIVEN FOR 500ml FLUID BOLUS. AWAITING CXR CONFIRMATION. VENT: AC 16/350, 12/100%.
[2020-09-27 04:44] LABS: Hematocrit 26.4 % (33.0-51.0); Hemoglobin 8.5 g/dL (11.5-16.0); Mean Corpuscular HGB 30.8 pg (26.0-34.0); Mean Corpuscular HGB Conc 32.2 g/dL (31.5-36.5); Mean Corpuscular Volume 96 fL (80-100); Mean Platelet Volume 10.7 fL (9.1-12.4); NRBC ABSOLUTE 0.04 K/mm3 (0.00-0.02); NRBC Auto 0.2 /100 WBC (0.0-0.2); Platelet Count 281 K/mm3 (150-400); RDW Coefficient Variation 16.3 % (11.7-14.2); RDW Standard Deviation 57.2 fL (35.1-46.3); Red Blood Cell Count 2.76 M/mm3 (3.80-5.20)
[2020-09-27 05:06] LABS: PCO2 Arterial 61.1 mmHg (35-45); PO2 Arterial 148 mmHg (80-100); pH Blood Arterial 7.21 (7.35-7.45)
[2020-09-27 05:29] LABS: BAND PERCENT MAN 17 % (0-8); BASOPHILS ABSOLUTE MAN 0.22 K/mm3 (0.00-0.23); BASOPHILS PERCENT MAN 1 % (0-2); EOSINOPHILS PERCENT MAN 0 % (0-6); LYMPHOCYTES ABSOLUTE MAN 1.34 K/mm3 (0.84-5.20); LYMPHOCYTES PERCENT MAN 6 % (21-46); METAMYELOCYTE ABSOLUTE MAN 0.22 K/mm3 (0.00-0.00); METAMYELOCYTE PERCENT MAN 1 % (0-0); MONOCYTES ABSOLUTE MAN 0.89 K/mm3 (0.16-1.47); MONOCYTES PERCENT MAN 4 % (4-13); NEUTROPHILS ABSOLUTE MAN 19.71 K/mm3 (1.96-9.15); SEG NEUTROPHILS PERCENT MAN 71 % (41-73); TOTAL CELLS COUNTED 100
[2020-09-27 05:47] LABS: Magnesium, Blood 1.7 mg/dL (1.6-2.4)
[2020-09-27 05:48] LABS: Anion Gap 10 mmol/L (6-16); Blood Urea Nitrogen 104 mg/dL (8-24); Bun/Creatinine Ratio 29.7 (12.0-20.0); CO2, Blood 26 mmol/L (21-32); Calcium, Blood 8.1 mg/dL (8.5-10.1); Chloride, Blood 105 mmol/L (98-108); Glomerular Filtration Rate 13 (60-); Glucose, Blood 350 mg/dL (70-99); Phosphorus, Blood 5.8 mg/dL (2.5-4.9); Potassium, Blood 3.6 mmol/L (3.5-5.5); Sodium, Blood 141 mmol/L (136-145)
--- NOTE | 2020-09-27 06:24 | NUR ---
SHIFT SUMMARY: PT IS INTUBATED, SEDATED. GTTs: PRECEDEX 0.7mcg/kg/hr, LEVOPHED 12mcg/min, AMNIODARONE 0.5mg/min. VENT: AC 22/450, 12/65%. [SEE PREVIOUS NOTATION FOR PROGRESSION OF CARE]. BP HAS BEEN DIFFICULT TO MAINTAIN AFTER INTUBATION. PT HAS BEEN GIVEN x2 500ml BOLUSES & LEVOPHED TITRATED UP ACCORDINGLY, HOWEVER MAPs FLUCTUATE BETWEEN 50-60. PT COULD BENEFIT FROM ANOTHER PRESSOR & ADDITIONAL SEDATION. WILL DISCUSS THIS SHORTLY W/ AM RN IN SHIFT REPORT. LITTLE URINARY OUTPUT THIS SHIFT, 250mls. WILL CONTINUE TO MONITOR UNTIL REPORT OFF TO ONCOMING RN.
--- NOTE | 2020-09-27 17:59 | NUR ---
SHIFT SUMMARY PT REMAINED INTUBATED AND SEDATED TODAY. SHE RECEIVED DIALYSIS THIS AFTERNOON, WHICH REQUIRED HER LEVOPHED TO BE TITRATED UP HIGH 16MCG/MIN, BUT HAS BEEN ABLE TO BE TITRATED BACK DOWN SINCE DIALYSIS COMPLETED. STILL GETTING THICK, BOND SECRETIONS OUT OF ETT. FIO2 TITRATED DOWN TO 35%. TUBE FEED STARTED THIS AFTERNOON AND PT APPEARS TO BE TOLERATING SO FAR. TPN STOPPED WHEN TUBE FEED STARTED. PT'S NIECE VISITED AND WAS UPDATED. SPOKE WITH PT'S SISTER KATINA AGAIN THIS AFTERNOON AND SHE WAS UPDATED BY DR. MAR. PLAN IS TO HAVE FAMILY MEETING TOMORROW TO DISCUSS PT'S CARE AND PROGNOSIS.
--- NOTE | 2020-09-27 19:30 | NUR ---
ASSUMED PT CARE: PT LAYING SUPINE IN BED. INTUBATED & SEDATED. VENT: AC 18/450, 8/35%. GTTs: AMNIO 0.5mg/min, LEVOPHED 4mcg/min, PRECEDEX 1mcg/kg/hr. PT DOES NOT AWAKE TO VERBAL STIMULI, RECOILS W/ ORAL CARE. RR EVEN & UNLABORED, PT SYNCHRONOUS W/ VENT. THICK RED & BOND SPUTUM FROM ETT. ABD CONTINUES TO BE DISTENDED, FIRM. WILL CONTINUE TO MONITOR & REPORT APPROPRIATE.
[2020-09-28 05:00] LABS: Base Excess Venous 1.7 mmol/L; Bicarbonate Venous 25.8 mmol/L (24.0-30.0); PCO2 Venous 37.2 mmHg (38-42); PO2 Venous 65.6 mmHg (38-42); pH Blood Venous 7.45 (7.34-7.37)
[2020-09-28 05:14] LABS: Albumin, Blood 1.8 g/dL (3.4-5.0); Anion Gap 10 mmol/L (6-16); Blood Urea Nitrogen 96 mg/dL (8-24); Bun/Creatinine Ratio 27.4 (12.0-20.0); CO2, Blood 26 mmol/L (21-32); Chloride, Blood 105 mmol/L (98-108); Creatinine, Blood 3.51 mg/dL (0.40-1.00); Glomerular Filtration Rate 13 (60-); Glucose, Blood 193 mg/dL (70-99); Magnesium, Blood 1.8 mg/dL (1.6-2.4); Phosphorus, Blood 4.2 mg/dL (2.5-4.9); Potassium, Blood 3.3 mmol/L (3.5-5.5); Sodium, Blood 141 mmol/L (136-145)
[2020-09-28 05:19] LABS: Hematocrit 22.6 % (33.0-51.0); Mean Corpuscular HGB 31.1 pg (26.0-34.0); Mean Corpuscular HGB Conc 35.4 g/dL (31.5-36.5); Mean Platelet Volume 10.9 fL (9.1-12.4); NRBC ABSOLUTE 0.03 K/mm3 (0.00-0.02); NRBC Auto 0.2 /100 WBC (0.0-0.2); Platelet Count 310 K/mm3 (150-400); RDW Coefficient Variation 14.5 % (11.7-14.2); RDW Standard Deviation 45.4 fL (35.1-46.3); Red Blood Cell Count 2.57 M/mm3 (3.80-5.20)
[2020-09-28 05:23] LABS: Mean Corpuscular Volume 88 fL (80-100)
[2020-09-28 05:47] LABS: BAND PERCENT MAN 5 % (0-8); BASOPHILS ABSOLUTE MAN 0.17 K/mm3 (0.00-0.23); BASOPHILS PERCENT MAN 1 % (0-2); EOSINOPHILS ABSOLUTE MAN 0.17 K/mm3 (0.00-0.68); EOSINOPHILS PERCENT MAN 1 % (0-6); LYMPHOCYTES ABSOLUTE MAN 1.95 K/mm3 (0.84-5.20); LYMPHOCYTES PERCENT MAN 11 % (21-46); METAMYELOCYTE ABSOLUTE MAN 0.17 K/mm3 (0.00-0.00); METAMYELOCYTE PERCENT MAN 1 % (0-0); MONOCYTES ABSOLUTE MAN 1.24 K/mm3 (0.16-1.47); MONOCYTES PERCENT MAN 7 % (4-13); NEUTROPHILS ABSOLUTE MAN 14.06 K/mm3 (1.96-9.15); SEG NEUTROPHILS PERCENT MAN 74 % (41-73); TOTAL CELLS COUNTED 100
--- NOTE | 2020-09-28 06:47 | NUR ---
SHIFT SUMMARY: PT REMAINS INTUBATED, SEDATED. GTTs: LEVOPHED 2mcg/min, PROPOFOL mcg/kg/min, PRECEDEX 1mcg/kg/hr. VENT: AC 18/450, 8/35%. PT RESTED WELL FOR MOST OF THE NIGHT. HOWEVER APPROX 0500, PT OPENED EYES & BEGAN TO COUGH & SHAKE HER HEAD. PT WAS ABLE TO FOLLOW COMMANDS, NOD YES/NO, BUT UNABLE TO MOVE EXTREMITIES ON COMMAND. PROPOFOL WAS STARTED FOR SEDATION & PT COMFORT. SHE CONTINUES TO REST COMFORTABLY. PLAN FOR FAMILY MEETING TODAY W/ PT's SISTER & HERNANDEZ TO DISCUSS POSSIBLE COMFORT CARE MEASURES. WILL CONTINUE TO MONITOR & REPORT APPROPRIATE.
--- NOTE | 2020-09-28 08:00 | NUR ---
ASSUMED CARE OF PT, REPORT RCV'D FROM AURELIA COLINDRES. PT INTUBATED AND SEDATED. VENT SETTINGS AC 18/450/8/30%. PT SEDATED WITH PRECEDEX 1 MCG/KG/HR AND PROPOFOL 15 MCG/KG/MIN. PT WITHDRAWS FROM PAINFUL STIMULI. FAILS TO FOLLOW COMMANDS AT THIS TIME. NGT INFUSING PIVOT 1.5 AT 10 ML/HR WITH 20 ML Q4 FLUSH. PT HAS LARGE PRESSURE WOUND ACROSS NOSE. NGT SECUREMENT DEVICE REMOVED, PICTURES TAKEN, NON ADHERENT DRESSING AND BACTRACIN APPLIED AND NGT SECURED TO ETT (CLINICAL COORDINATOR OKROXANNA). RIOS PATENT AND DRAINING SMALL AMOUNT OF DARK URINE TO GRAVITY. PT SCHEDULED TO HAVE DIALYSIS THIS MORNING. SEE FULL SHIFT ASSESSMENT.
[2020-09-28 09:08] LABS: HBSAG SCREEN Negative (Negative); HEP A AB, IGM Negative (Negative); HEP B CORE AB, IGM Negative (Negative); HEP C VIRUS AB <0.1 (0.0-0.9)
[2020-09-28 13:48] LABS: Vancomycin, Random 12.6 ug/mL
--- NOTE | 2020-09-28 18:08 | NUR ---
SHIFT SUMMARY PT REMAINS INTUBATED AND SEDATED, VENT SETTINGS UNCHANGED. PT ABLE TO TOLERATE SPONTANEOUS VENT SETTINGS FOR OVER 1 HR, SWITCHED BACK TO AC THIS EVENING SO PT ABLE TO REST. PROPOFOL REMAINS OFF, PT LIGHTLY BUT COMFORTABLY SEDATED WITH PRECEDEX 0.6 MCG/KG/HR. PT ALERT TO VERBAL STIMULI, WEAKLY FOLLLOWS COMMANDS TO SQUEEZE HANDS, TURNS TOWARD VERBAL STIMULI. LEVOPHED INFUSING AT 3 MCG/MIN TO MAINTAIN MAP>65. PT HAD 250 ML URINARY OUTPUT. TUBE FEED REMAINS AT 10 ML/HR, ORDER TO NOT ADVANCE AT THIS TIME PER DR. HERNANDEZ. PT'S SISTER KATINA CALLED THIS EVENING EXPRESSING FAMILY WISH TO "NOT MAKE PT DNR" AND TO "GO AHEAD AND TRACH TOMORROW". EXPLAINED THAT LIKELY TRACH WOULD NOT TAKE PLACE TOMORROW BUT WILL PASS ON TO DR. HERNANDEZ. WILL REPORT TO [facility] SHIFT NURSE.
--- NOTE | 2020-09-28 19:30 | NUR ---
ASSUMING PT CARE: PT INTUBATED, SEDATED. VENT: AC 18/450, 8/30%. GTTs: LEVOPHED 4mcg/min, PRECEDEX 0.6mcg/kg/hr. PT OPENS EYES TO NAME, ABLE TO MOVE HEAD AROUND SLIGHTLY, NODDING/SHAKING HEAD TO YES/NO QUESTIONS. UNABLE TO SQUEEZE HANDS OR MOVE EXTREMITIES. WHEN UNDISTURBED, PT TOLERATES ETT & RETURNS TO SLEEPING. BP STABLE @ THIS TIME, WILL TITRATE LEVO TO EFFECT & DECREASE PT TOLERATES. WILL CONTINUE TO MONITOR @ REPORT APPROPRIATE.
--- NOTE | 2020-09-29 | NUR ---
UPDATE: PT CONTINUES TO AWAKEN, DESPITE PRECEDEX INC & NOW @ MAX. COUGHING AGAINST ETT & SHAKING HEAD FROM SIDE TO SIDE & INTOLERANT OF ORAL CARE. NEURO STATUS ALSO CONTINUES TO IMPROVE. PT NOW ABLE TO SHAKE & NOD HEAD, LIGHTLY SQUEEZE & RAISE L HAND. EYES TRACKING IN BOTH HEMISPHERES. NYSTAGMUS IN L EYE & MORE PRONOUNCED WHEN ATTEMPTING TO FOLLOW OBJECTS ACROSS FIELD OF VISION. PROPOFOL RESTARTED FOR ETT TOLERANCE & PT COMFORT. WILL CONTINUE TO MONITOR & REPORT APPROPRIATE.
[2020-09-29 04:14] LABS: BASOPHILS ABSOLUTE AUTO 0.05 K/mm3 (0.00-0.23); BASOPHILS PERCENT AUTO 0 % (0-2); Hemoglobin 7.7 g/dL (11.5-16.0); LYMPHOCYTES ABSOLUTE AUTO 2.31 K/mm3 (0.84-5.20); LYMPHOCYTES PERCENT AUTO 13 % (21-46); MONOCYTES ABSOLUTE AUTO 1.13 K/mm3 (0.16-1.47); MONOCYTES PERCENT AUTO 6 % (4-13); Mean Corpuscular HGB 30.8 pg (26.0-34.0); Mean Corpuscular Volume 88 fL (80-100); NRBC ABSOLUTE 0.08 K/mm3 (0.00-0.02); NRBC Auto 0.4 /100 WBC (0.0-0.2); Platelet Count 351 K/mm3 (150-400); RDW Coefficient Variation 14.5 % (11.7-14.2); RDW Standard Deviation 44.7 fL (35.1-46.3)
[2020-09-29 04:17] LABS: EOSINOPHILS ABSOLUTE AUTO 0.46 K/mm3 (0.00-0.68); EOSINOPHILS PERCENT AUTO 3 % (0-6); IMMATURE GRAN PERCENT AUTO 5 % (0-1); NEUTROPHILS ABSOLUTE AUTO 13.05 K/mm3 (1.96-9.15); NEUTROPHILS PERCENT AUTO 73 % (41-73)
[2020-09-29 04:45] LABS: BAND PERCENT MAN 2 % (0-8); BASOPHILS PERCENT MAN 0 % (0-2); EOSINOPHILS ABSOLUTE MAN 0.89 K/mm3 (0.00-0.68); EOSINOPHILS PERCENT MAN 5 % (0-6); LYMPHOCYTES ABSOLUTE MAN 2.14 K/mm3 (0.84-5.20); LYMPHOCYTES PERCENT MAN 12 % (21-46); METAMYELOCYTE ABSOLUTE MAN 0.53 K/mm3 (0.00-0.00); METAMYELOCYTE PERCENT MAN 3 % (0-0); MONOCYTES ABSOLUTE MAN 1.43 K/mm3 (0.16-1.47); MONOCYTES PERCENT MAN 8 % (4-13); NEUTROPHILS ABSOLUTE MAN 12.88 K/mm3 (1.96-9.15); SEG NEUTROPHILS PERCENT MAN 70 % (41-73); TOTAL CELLS COUNTED 100
[2020-09-29 04:49] LABS: Albumin, Blood 1.7 g/dL (3.4-5.0); Albumin/Globulin Ratio 0.4 (0.8-1.8); Bilirubin, Total 1.2 mg/dL (0.1-1.0); Creatinine, Blood 3.22 mg/dL (0.40-1.00); Globulin, Blood 3.8 g/dL (2.2-4.0); Magnesium, Blood 1.8 mg/dL (1.6-2.4); Potassium, Blood 3.4 mmol/L (3.5-5.5); Total Protein, Blood 5.5 g/dL (6.4-8.2)
--- NOTE | 2020-09-29 06:30 | NUR ---
SHIFT SUMMARY: PT REMAINS INTUBATED & SEDATED. VENT: AC 18/450, 8/30%. GTTs: PROPOFOL 30 mcg/kg/min, LEVOPHED mcg/min, PRECEDEX 1mcg/kg/hr. NEURO STATUS HAS IMPROVED THROUGHOUT THE SHIFT. SEE PREVIOUS NOTATION. LEVO HAS BEEN ABLE TO BE TITRATED DOWN, EVEN DESPITE INCREASES IN PROPOFOL. VS OTHERWISE STABLE. MINIMAL OUTPUT THIS SHIFT, 200mls OF PROGRESSIVELY DARKENING URINE. DIALYSIS CATH DRESSING BEGINNING TO LEAK SM AMT BLOOD. CHG INTACT. PT DID HAVE SM BM, CLEAR & W/ JELLY-LIKE VISCOSITY, WHICH IS NEW. PLAN FOR SBT & WEEN TODAY W/HERNANDEZ.
--- NOTE | 2020-09-29 11:51 | NUR ---
DIALYSIS: NO HEPARIN USED DURING TREATMENT. VENOUS CHAMBER CLOTTED WE WERE RETURNING THE BLOOD.
[2020-09-29 12:28] LABS: Vancomycin, Random 16.9 ug/mL
--- NOTE | 2020-09-29 12:46 | NUR ---
REASSESSMENT PT REMAINED INTUBATED AND SEDATED ON THE VENT THIS AM. PT HAD DIALYSIS, TOLERATED WELL EXCEPT FOR REQUIRING INCREASE IN PRESSORS ABOUT PENITENTIARY THROUGH TO MAINTAIN MAP ABOVE 60. SEDATION VACATION STARTED AFTER DIALYSIS COMPELTED AND PT IS OPENING HER EYES TO VOICE, WILL WEAKLY SQUEEZE L HAND ON COMMAND, NOT SQUEEZING R HAND. THIS MORNING WHILE PROPOFOL WAS ON SHE HAD NO GAG, WASN'T ABLE TO STIMULATE COUGH WITH SUCTIONING BUT SHE DID COUGH WHEN TURNED. OFF OF PROPFOL SHE HAS AN EXTREMEMLY WEAK ATTEMPT AT A GAG REFLEX CURRENTLY, WEAK COUGH WITH SUCTION. LUNGS ON THE R SIDE HAVE AN EXPIRATORY WHEEZE, DIM ON THE L SIDE. SR. LEVOPHED BEING TITRATED BACK DOWN NOW THAT DIALYSIS IS COMPLETE. TOLERATING TUBE FEED WITH LESS THAN 50ML OF RESIDUAL. RIOS WITH VINCENT COLORED URINE. NO OTHER CONCERNS AT THIS TIME. CONTINUING TO MONITOR.
--- NOTE | 2020-09-29 15:13 | NUR ---
09/29/20- per chart review with Dr. Weber, pt needs more days of dialysis and will need to stay a couple more days in the hospital. Per notes, pt is coughing over ETT, can shake head and wake to verbal noise during sedation vacation. She is still intubated. She has tolerated tube feeds. -alex
--- NOTE | 2020-09-29 17:27 | NUR ---
SHIFT SUMMARY PT REMAINS INTUBATED, SEDATED ON PRECEDEX THIS AFTERNOON. PROPOFOL OFF SINCE 1155. PT WAKES UP TO VOICE, FOLLOWS SIMPLE COMMANDS. SQUEEZING BOTH HANDS NOW, BUT VERY WEAK. STILL VERY WEAK GAG REFLEX. LUNGS HAVE FAINT WHEEZES. ON SPONTANEOUS SINCE AT 1400 AND TOELRATING WELL. SR, LEVOPHED AT 4MCG/MIN. TOLERATING TUBE FEED. CL VINCENT OUTPUT IN ROIS. PT'S STEPDAUGHTER CARTER CAME IN TODAY AND RECEIVED UPDATE FROM DR. HERNANDEZ AND NURSING STAFF. SHE STATES SHE WAS NOT AWARE OF THE FAMILY MEETING THAT OCCURRED YESTERDAY. ALL QUESTIONS WERE ANSWERED. CONTINUING TO MONITOR PT.
--- NOTE | 2020-09-29 18:21 | NUR ---
Spiritual care note: I spoke at length with Cat's step-dtr, Glenn. She and Cat live on the same property and see eachother daily. She spoke at length about Cat's strength and told me stories about their comping trips. She does not always get along with pt's siblings. Per chart, Glenn is pt's requested MPOA this admission. In previous admissions, Glenn's brother is listed as MPOA. Cat has a POLST from 2018 that states full treatment. Glenn states that Cat would not want to live if it meant she could not "Get up and move around." She enjoys being active and would not want to live her life "in bed, on machines." Per Glenn, Cat is opposed to anything rastafari and has no spiritual practices/beleifs. I provided theraputic listening, gentle counselling psychologist to good effect. Pt is sedated and appears comfortable. I will remain available to this pt and family.
--- NOTE | 2020-09-29 19:15 | NUR ---
ASSUMPTION OF CARE RECEIVED REPORT FROM KO MOSES, ASSUMED CARE OF PATIENT. PATIENT IS INTUBATED ON PRECEDEX, EYES OPENED. NO S/S OF DISTRESS. TUBE FEEDS INFUSING VIA NG TO RIGHT NARE AT 10ML/HR. ETT IN PLACE WITH FIO2 30%. VITALS STABLE. WILL REVIEW ORDERS AND TREAT PRESCRIBED.
--- NOTE | 2020-09-30 00:21 | NUR ---
REASSESSMENT NO ACUTE CHANGES FROM INITIAL ASSESSMENT. TUBE FEED RIS: 10 ML, REFED.
--- NOTE | 2020-09-30 04:32 | NUR ---
REASSESSMENT NO CHANGES FROM PREVIOUS ASSESSMENT, VITALS STABLE, REMAINS OFF LEVO.
[2020-09-30 04:54] LABS: BASOPHILS ABSOLUTE AUTO 0.03 K/mm3 (0.00-0.23); BASOPHILS PERCENT AUTO 0 % (0-2); EOSINOPHILS ABSOLUTE AUTO 0.53 K/mm3 (0.00-0.68); EOSINOPHILS PERCENT AUTO 3 % (0-6); Hematocrit 20.1 % (33.0-51.0); Hemoglobin 6.8 g/dL (11.5-16.0); IMMATURE GRAN ABSOLUTE AUTO 0.53 K/mm3 (0.00-0.10); IMMATURE GRAN PERCENT AUTO 3 % (0-1); LYMPHOCYTES ABSOLUTE AUTO 1.72 K/mm3 (0.84-5.20); LYMPHOCYTES PERCENT AUTO 11 % (21-46); MONOCYTES ABSOLUTE AUTO 0.98 K/mm3 (0.16-1.47); MONOCYTES PERCENT AUTO 6 % (4-13); Mean Corpuscular HGB 30.5 pg (26.0-34.0); Mean Corpuscular HGB Conc 33.8 g/dL (31.5-36.5); Mean Corpuscular Volume 90 fL (80-100); Mean Platelet Volume 11.1 fL (9.1-12.4); NEUTROPHILS ABSOLUTE AUTO 11.89 K/mm3 (1.96-9.15); NEUTROPHILS PERCENT AUTO 76 % (41-73); NRBC ABSOLUTE 0.04 K/mm3 (0.00-0.02); NRBC Auto 0.3 /100 WBC (0.0-0.2); Platelet Count 330 K/mm3 (150-400); RDW Coefficient Variation 14.6 % (11.7-14.2); RDW Standard Deviation 45.9 fL (35.1-46.3); Red Blood Cell Count 2.23 M/mm3 (3.80-5.20); White Blood Cell Count 15.68 K/mm3 (4.00-11.30)
[2020-09-30 05:13] LABS: Albumin, Blood 1.7 g/dL (3.4-5.0); Albumin/Globulin Ratio 0.4 (0.8-1.8); Bilirubin, Direct 0.9 mg/dL (0.0-0.3); Bilirubin, Indirect 0.4 mg/dL (0.1-0.7); Bilirubin, Total 1.3 mg/dL (0.1-1.0); Bun/Creatinine Ratio 24.7 (12.0-20.0); Creatinine, Blood 2.96 mg/dL (0.40-1.00); Globulin, Blood 3.9 g/dL (2.2-4.0); Magnesium, Blood 1.8 mg/dL (1.6-2.4); Phosphorus, Blood 5.9 mg/dL (2.5-4.9); Potassium, Blood 3.7 mmol/L (3.5-5.5); Total Protein, Blood 5.6 g/dL (6.4-8.2)
--- NOTE | 2020-09-30 06:17 | NUR ---
SHIFT SUMMARY COMMUNICATION WITH MD PT'S HGB 6.8, 1 UNIT PRBC ORDERED TO INFUSE. NO ACUTE CHANGES T/O SHIFT. PT REMAINS ON SPONT VENTILATION, FIO2 40%.
--- NOTE | 2020-09-30 08:00 | NUR ---
ASSUMED CARE BEDSIDE REPORT RECIEVED. PT IS INTUBATED AND MINIMALLY SEDATED. PT IS LAYING IN BED WITH EYES OPEN, TRACKING WHEN IN THE ROOM. PT SHAKES HEAD YES OR NO TO QUESTIONS APPROPRIATELY. PT SQUEEZES HANDS UPON COMMAND. PT DENIES PAIN OR DISCOMFORT AT THIS TIME. NGT IN PLACE WITH TF INFUSING AT 10 ML/HR. PICC TO DEONTE C/D/I. NS INFUSING TKO. PRECEDEX AT 0.7 MCG/KG/MIN. LEVOPHED ON STANDBY. DIALYSIS CATH TO [facility] C/D/I. RIOS IN PLACE WITH YELLOW URINE OUTPUT NOTED. PT WITH MULTIPLE WOUNDS NOTED, SEE PHOTOS IN CHART. SBW RESTRAINTS IN PLACE. WILL CONTINUE TO MONITOR.
--- NOTE | 2020-09-30 11:23 | NUR ---
Case conference and pt visit with SE Rey and [employer] this am. Case conference with RN and Drs before and after visit for update on current status and concerns. Since I was here last pt was reintubated at sister's request. Proxy decision maker has been clarified and confirmed as her step-carrie, Glenn, and her number is [phone]. A step son Kia has also been updated and involved per Drs. Pt indicated some discomfort with palpation of abdomen with grimace/furrow and nod & then shook her head no to questioning about pain otherwise. Pt is receiving some medications for sedation but is awake and alert and responding appropriately. Her hand squeeze and LE mvmt was minimal and weak. explained to pt that she is better but very weak still. He also explained to pt that he wants to give pt time to gain strength in muscles of respiration before considering extubation again. SE Rey present and made rounds also during this time.
[2020-09-30 14:36] LABS: Vancomycin, Random 25.9 ug/mL
--- NOTE | 2020-09-30 17:07 | NUR ---
SHIFT SUMMARY NO ACUTE CHANGES THIS SHIFT. PT HAS REMAINED AWAKE AND ALERT THROUGHOUT THE DAY. PT REMAINS INTUBATED. VENT SETTINGS CHANGED BACK TO AC 18, TV 450, PEEP 5, FIO2 30% THIS AM BY DR HERNANDEZ FOR PT TO REST TODAY. PT CONTINUES TO SHAKE HEAD YES OR NO APPROPRIATELY TO QUESTIONS. PT SQUEEZES HANDS UPON COMMAND. PT DENIES PAIN. PT MINIMALLY SEDATED WITH PRECEDEX AT 0.7 MCG/KG/MIN. PT RECIEVED ONE UNIT OF PRBC'S THIS SHIFT. PICC TO DEONTE REMAINS C/D/I. LEVOPHED TITRATED BETWEEN OFF AND 2 MCG/MIN THIS SHIFT. VITAL SIGNS STABLE. NGT REMAINS IN PLACE WITH TF AT 10 ML/HR. RIOS IN PLACE WITH YELLOW URINE OUTPUT NOTED THIS SHIFT. DIALYSIS CATH REMAINS C/D/I. PT DID NOT RECIEVE DIALYSIS THIS SHIFT. PT FRIEND AT BEDSIDE THIS AFTERNOON. SBW RESTRAINTS REMAIN IN PLACE. WILL CONTINUE TO MONITOR AND REPORT OFF TO ONCOMING RN.
--- NOTE | 2020-09-30 19:30 | NUR ---
ASSUMED CARE REPORT RECEIVED FROM JEAN PAUL MOSES. PT REMAINS ON PRECEDEX GTT, INTUBATED. CONTINUE CARE.
--- NOTE | 2020-10-01 00:10 | NUR ---
REASSESSMENT LEVO RESTARTED FOR MAP <65. NO OTHER CHANGES.
[2020-10-01 03:43] LABS: BASOPHILS ABSOLUTE AUTO 0.04 K/mm3 (0.00-0.23); BASOPHILS PERCENT AUTO 0 % (0-2); EOSINOPHILS ABSOLUTE AUTO 0.45 K/mm3 (0.00-0.68); EOSINOPHILS PERCENT AUTO 4 % (0-6); Hematocrit 24.7 % (33.0-51.0); Hemoglobin 8.5 g/dL (11.5-16.0); IMMATURE GRAN PERCENT AUTO 4 % (0-1); LYMPHOCYTES ABSOLUTE AUTO 1.51 K/mm3 (0.84-5.20); LYMPHOCYTES PERCENT AUTO 12 % (21-46); MONOCYTES ABSOLUTE AUTO 0.83 K/mm3 (0.16-1.47); MONOCYTES PERCENT AUTO 6 % (4-13); Mean Corpuscular HGB 30.6 pg (26.0-34.0); Mean Corpuscular HGB Conc 34.4 g/dL (31.5-36.5); Mean Corpuscular Volume 89 fL (80-100); Mean Platelet Volume 10.6 fL (9.1-12.4); NEUTROPHILS ABSOLUTE AUTO 9.66 K/mm3 (1.96-9.15); NEUTROPHILS PERCENT AUTO 74 % (41-73); Platelet Count 329 K/mm3 (150-400); RDW Coefficient Variation 14.4 % (11.7-14.2); RDW Standard Deviation 44.3 fL (35.1-46.3); Red Blood Cell Count 2.78 M/mm3 (3.80-5.20); White Blood Cell Count 12.99 K/mm3 (4.00-11.30)
[2020-10-01 04:00] LABS: Albumin, Blood 1.7 g/dL (3.4-5.0); Albumin/Globulin Ratio 0.4 (0.8-1.8); Bilirubin, Total 1.1 mg/dL (0.1-1.0); Bun/Creatinine Ratio 24.1 (12.0-20.0); C-REACTIVE PROTEIN, EXT RANGE 12.5 mg/dL (0.000-0.300); Calcium, Blood 7.9 mg/dL (8.5-10.1); Creatinine, Blood 3.44 mg/dL (0.40-1.00); Globulin, Blood 4.2 g/dL (2.2-4.0); Magnesium, Blood 1.9 mg/dL (1.6-2.4); Potassium, Blood 3.8 mmol/L (3.5-5.5); Total Protein, Blood 5.9 g/dL (6.4-8.2)
--- NOTE | 2020-10-01 04:27 | NUR ---
AEASSESSMENT NO CURRENT CHANGES TUBE FEED BAG AND TUBES CHANGED
--- NOTE | 2020-10-01 06:16 | NUR ---
END OF SHIFT SUMMARY PT REMAINS ON PRECEDEX GTT, ON A/C VENT OVERNIGHT. PT IS AWAKE, FOLLOWS COMMANDS.
--- NOTE | 2020-10-01 07:30 | NUR ---
ASSUMED CARE BEDSIDE REPORT RECIEVED. PT IS LAYING IN BED INTUBATED, AND MINIMALLY SEDATED. VENT SETTINGS AC 18, TV 450, PEEP 5, FIO2 30%. PT WITH MINIMAL ETT SECRETIONS WITH SUCTION. PT SEDATED WITH PRECEDEX AT 0.7 MCG/KG/HR. PT IS AWAKE WITH EYES OPEN. PT FOLLOW SIMPLE COMMANDS. PT SHAKES HEAD YES OR NO TO QUESTIONS APPROPRIATELY. PT SHAKES HEAD NO TO PAIN OR DISCOMFORT AT THIS TIME. PICC TO [facility] C/D/I. NS INFUSING TKO. VITAL SIGNS STABLE. LEVOPHED INFUSING AT 2 MCG/MIN. DIALYSIS CATH TO [facility] C/D/I. PLANS FOR DIALYSIS TODAY. NGT IN PLACE WITH TF AT 10 ML/HR, MINIMAL RESIDUALS NOTED. RIOS IN PLACE WITH YELLOW URINE OUTPUT NOTED. PT WITH WOUND TO BRIDGE OF NOSE NOTED, SEE PHOTO IN CHART. SBW RESTRAINTS IN PLACE. WILL CONTINUE TO MONITOR.
[2020-10-01 13:00] LABS: Vancomycin, Random 13.2 ug/mL
--- NOTE | 2020-10-01 17:38 | NUR ---
SHIFT SUMMARY NO ACUTE CHANGES THIS SHIFT. PT REMAINS INTUBATED AND MINIMALLY SEDATED. PT HAS REMAINED ON PRESSURE SUPPORT OF 12/5, FIO2 30% THROUGHOUT MOST OF THE DAY. PT SWITCHED BACK TO AC 18, TV 450, PEEP 5, FIO2 30% THIS EVENING TO REST THROUGHOUT THE NIGHT PER DR HERNANDEZ. PT HAS REMAINED AWAKE, ALERT, AND FOLLOWING COMMANDS THROUGHOUT THE DAY. PRECEDEX INFUSING AT 0.7 MCG/KG/HR AND NS TKO. PICC TO DEONTE IS C/D/I. NGT REMAINS IN PLACE WITH TF AT 20 ML/HR GOAL RATE. RIOS TEMP PROBE IN PLACE WITH DARK YELLOW URINE OUTPUT NOTED. DIALYSIS CATH TO [facility] REMAINS C/D/I. PT RECIEVED DIALYSIS THIS MORNING. SBW RESTRAINTS REMAIN IN PLACE. PT FAMILY MEMBER AT BEDSIDE THIS AFTERNOON. WILL CONTINUE TO MONITOR AND REPORT OFF TO ONCOMING RN.
--- NOTE | 2020-10-01 18:37 | NUR ---
Spiritual care note: I met with Cat this morning. She was still on vent, but awake and answered questions appropriately. Once rapport established, I asked her about her code status wishes. She would like to continue with all medical interventions. She is ok if trach neccessary. She wants to keep fighting to recover. Per family, she is adamantly non-amish, but she responded well to assurance of excellent care and progress from last week. She nods 'yes' to understanding why she is hospitalized and what has happened throughout the past 2 weeks. She feels her condition has been well explained. I will remain available.
--- NOTE | 2020-10-01 20:00 | NUR ---
ASSUMED CARE OF PT AT 1915. REPORT RECEIVED AT BEDSIDE. PT PRESENTS IN BED. VENTED. AC 18, Tv 450, FIO2 30% PEEP 5. PT HAS HER EYES OPEN. WILL NOD HEAD 'YES' AND 'NO' TO QUESTIONS. TOLERATES TURNS WELL. WILL REVIEW CHART AND PLAN OF CARE FOR THIS PT.
--- NOTE | 2020-10-02 00:02 | NUR ---
PT CONTINUES AT 1 MCG/KG/MIN LEVOPHED DRIP TO MAINTAIN MAP > 60. PRECEDEX AT 0.7 MCG'S.
[2020-10-02 04:10] LABS: BASOPHILS ABSOLUTE AUTO 0.04 K/mm3 (0.00-0.23); BASOPHILS PERCENT AUTO 0 % (0-2); EOSINOPHILS ABSOLUTE AUTO 0.49 K/mm3 (0.00-0.68); EOSINOPHILS PERCENT AUTO 4 % (0-6); Hematocrit 23.4 % (33.0-51.0); Hemoglobin 7.9 g/dL (11.5-16.0); IMMATURE GRAN ABSOLUTE AUTO 0.26 K/mm3 (0.00-0.10); IMMATURE GRAN PERCENT AUTO 2 % (0-1); LYMPHOCYTES PERCENT AUTO 12 % (21-46); MONOCYTES ABSOLUTE AUTO 0.79 K/mm3 (0.16-1.47); MONOCYTES PERCENT AUTO 7 % (4-13); Mean Corpuscular HGB 31.1 pg (26.0-34.0); Mean Corpuscular HGB Conc 33.8 g/dL (31.5-36.5); Mean Corpuscular Volume 92 fL (80-100); Mean Platelet Volume 10.4 fL (9.1-12.4); NEUTROPHILS ABSOLUTE AUTO 8.45 K/mm3 (1.96-9.15); NEUTROPHILS PERCENT AUTO 74 % (41-73); Platelet Count 342 K/mm3 (150-400); RDW Coefficient Variation 15.4 % (11.7-14.2); RDW Standard Deviation 48.1 fL (35.1-46.3); Red Blood Cell Count 2.54 M/mm3 (3.80-5.20); White Blood Cell Count 11.43 K/mm3 (4.00-11.30)
[2020-10-02 04:26] LABS: Albumin, Blood 1.7 g/dL (3.4-5.0); Anion Gap 8 mmol/L (6-16); Blood Urea Nitrogen 64 mg/dL (8-24); Bun/Creatinine Ratio 23.4 (12.0-20.0); CO2, Blood 28 mmol/L (21-32); Chloride, Blood 107 mmol/L (98-108); Creatinine, Blood 2.74 mg/dL (0.40-1.00); Glomerular Filtration Rate 18 (60-); Glucose, Blood 141 mg/dL (70-99); Magnesium, Blood 2.1 mg/dL (1.6-2.4); Phosphorus, Blood 5.2 mg/dL (2.5-4.9); Potassium, Blood 3.8 mmol/L (3.5-5.5); Sodium, Blood 143 mmol/L (136-145)
--- NOTE | 2020-10-02 05:40 | NUR ---
PT HAS PLACED HERSELF IN PARTIALLY PRONE POSITION THIS NIGHT. HAS CONTINUED ON AIRVO WITH 55 L/M AND 45 % FIO2. HAS MAINTAINED > 90 PERCENT SATURATIONS WITH THIS. PT HAS NOT HAD ANY COMPLAINTS PAIN. HAS REMAINED AFEBRILE. DOES HAVE SOME EXERTIONAL DYSPNEA. WILL CONTINUE TO MONITOR PT, AND WILL REPORT OFF TO ONCOMING RN.
--- NOTE | 2020-10-02 06:08 | NUR ---
PT CONTINUES ON 1 MCG LEVOPHED. MAINTAINS MAP > 60. NO CHANGES TO VENT FROM PREVIOUS. IS STILL ABLE TO MAINTAIN > 90 PERCENT SATURATIONS. HAS BEEN MEDICATED SEVERAL TIMES WITH FENTANYL FOR VENT TOLERANCE. HAS TOLERATED Q 2 HOUR TURNS IN BED. AWAKENS WITH ANY STIMULI. WILL CONTINUE TO MONITOR PT, AND WILL REPORT OFF TO ONCOMING RN.
--- NOTE | 2020-10-02 09:02 | NUR ---
ASSUMED CARE OF PT, REPORT RCV'D FROM AURELIA HIRSCH. PT ALERT TO VERBAL STIMULATION, NODS HEAD YES/NO, FOLLOWS COMMANDS TO SQUEEZE HANDS BILATERALLY. PT INTUBATED, VENT SETTINGS AC 14/450/5/30%. SEDATED LIGHTLY WITH PRECEDEX 0.7 MCG/KG/HR. LEVOPHED @ MCG/MIN. PIVOT 1.5 AT GOAL RATE OF 20 ML/HR WITH 30 ML Q4 FLUSH. VSS AT THIS TIME. SEE FULL SHIFT ASSESSMENT.
--- NOTE | 2020-10-02 15:14 | NUR ---
PT PLACED ON SPONTANEOUS 10/ 30%. PRECEDEX DECREASED TO 0.3 MCG/KG/HR. PT'S DAUGHTER ALANNAH AT BEDSIDE.
--- NOTE | 2020-10-02 18:38 | NUR ---
SHIFT SUMMARY PT REMAINS INTUBATED, SWITCHED FROM AC TO SPONTANEOUS 05/04, 30% @1500. PT TOLERATING WELL. PRECEDEX 0.3 MCG/KG/HR INFUSING, PT REMAINS ALERT, FOLLOWS COMMANDS, MOVES ALL EXTREMETIES WELL. BOWEL TONES IN ALL [address] LUDWIG, INCREASE TF TO 30 ML/HR, DIETARY TO REEVALUATE TOMORROW. NO RESIDUALS THIS SHIFT. NO INSULIN COVERAGE NEEDED T/O SHIFT. LEVOPHED REMAINS AT 1 MCG/MIN. VSS REMAINS STABLE. PT'S DAUGHTER ALANNAH AT BEDSIDE THIS AFTERNOON. PT AND FAMILY UPDATED WITH PLAN OF CARE. WILL REPORT TO ONCOMING NURSE.
--- NOTE | 2020-10-02 20:00 | NUR ---
ASSUMED CARE OF PT AT 1915. REPORT RECEIVED AT BEDSIDE. PT PRESENTS IN BED. VENTED, AC 18, Tv 450, PEEP 5, FIO2 30 PERCENT. PT TOLERATING THIS WELL. NODS HER HEAD 'YES' AND 'NO' TO QUESTIONING. WILL REVIEW CHART AND PLAN OF CARE FOR THIS PT.
--- NOTE | 2020-10-03 | NUR ---
CALL MADE TO DR LIZ CONCERNING PT REQUIRING 1-2 MCG'S LEVOPHED TO MAINTAIN BLOOD PRESSURES. INQUIRED ABOUT MIDODRINE. ORDER RECEIVED. PT RECEIVES FIRST DOSE 5 MG MIDODRINE. HAVE BEEN ABLE TO TURN OFF LEVOPHED. BP PRESSURES HAVE REMAINED WNL.
[2020-10-03 03:44] LABS: BASOPHILS ABSOLUTE AUTO 0.06 K/mm3 (0.00-0.23); BASOPHILS PERCENT AUTO 1 % (0-2); EOSINOPHILS ABSOLUTE AUTO 0.62 K/mm3 (0.00-0.68); EOSINOPHILS PERCENT AUTO 5 % (0-6); Hematocrit 24.4 % (33.0-51.0); Hemoglobin 8.2 g/dL (11.5-16.0); IMMATURE GRAN ABSOLUTE AUTO 0.21 K/mm3 (0.00-0.10); IMMATURE GRAN PERCENT AUTO 2 % (0-1); LYMPHOCYTES ABSOLUTE AUTO 1.59 K/mm3 (0.84-5.20); LYMPHOCYTES PERCENT AUTO 13 % (21-46); MONOCYTES ABSOLUTE AUTO 0.97 K/mm3 (0.16-1.47); MONOCYTES PERCENT AUTO 8 % (4-13); Mean Corpuscular HGB 30.9 pg (26.0-34.0); Mean Corpuscular HGB Conc 33.6 g/dL (31.5-36.5); Mean Corpuscular Volume 92 fL (80-100); Mean Platelet Volume 10.3 fL (9.1-12.4); NEUTROPHILS ABSOLUTE AUTO 8.85 K/mm3 (1.96-9.15); NEUTROPHILS PERCENT AUTO 72 % (41-73); Platelet Count 374 K/mm3 (150-400); RDW Standard Deviation 50.1 fL (35.1-46.3); Red Blood Cell Count 2.65 M/mm3 (3.80-5.20)
[2020-10-03 04:00] LABS: Albumin, Blood 1.8 g/dL (3.4-5.0); Albumin/Globulin Ratio 0.4 (0.8-1.8); Bilirubin, Total 1.2 mg/dL (0.1-1.0); Bun/Creatinine Ratio 24.3 (12.0-20.0); Calcium, Blood 8.2 mg/dL (8.5-10.1); Creatinine, Blood 3.13 mg/dL (0.40-1.00); Globulin, Blood 4.3 g/dL (2.2-4.0); Magnesium, Blood 1.9 mg/dL (1.6-2.4); Phosphorus, Blood 5.8 mg/dL (2.5-4.9); Potassium, Blood 3.7 mmol/L (3.5-5.5); Total Protein, Blood 6.1 g/dL (6.4-8.2)
--- NOTE | 2020-10-03 06:30 | NUR ---
PT HAS HAD THREE INCONTINENT STOOLS THIS SHIFT. PT ABLE TO ACKNOWLEDGE IF SHE HAS HAD STOOL BY HEAD NOD. HAS REMAINED OFF LEVOPHED THROUGHOUT THE SHIFT. HAS BEEN MEDICATED ONCE WITH 25 MCG FENTANYL FOR ACKNOWLEDGE PAIN. THIS AFFECTIVE. WILL CONTINUE TO MONITOR PT, AND WILL REPORT OFF TO ONCOMING RN.
--- NOTE | 2020-10-03 09:29 | NUR ---
ASSUMED CARE OF PT, REPORT RCV'D FROM AURELIA HIRSCH. PT ALERT TO VERBAL STIMULI. PT NODS HEAD YES/NO TO QUESTIONS, FOLLOWS COMMANDS. PT REMAINS INTUBATED ON SPONTANEOUS 10/5, 30%. PT NOT SEDATED, CALM AND COOPERATIVE. LEVOPHED REMAINS OFF, PT MAINTAINING MAP>65. PIVOT 1.5 @ 30 ML/HR WITH 30 ML Q4 FLUSH. NO RESIDUALS. PT HAD LARGE BOWEL MOVEMENT THIS MORNING. SEE FULL SHIFT ASSESSMENT.
--- NOTE | 2020-10-03 18:25 | NUR ---
SHIFT SUMMARY NO ACUTE CHANGES OVERNIGHT. PT REMAINS INTUBATED ON SPONTANEOUS 05/04, 30%. PRECEDEX REMAINS OFF. PT TREATED FOR BACK PAIN ONCE. PT ABLE TO APPROPRIATELY EXPRESS NEEDS. LEVOPHED REMAINS OFF AND MIDODRINE HELD T/O DAY D/T VSS NOT BEING WITHIN PARAMETERS. TUBE FEED INCREASED TO 35 MLS/HR (GOAL 45), NO RESIDUALS. 700 ML URINARY OUTPUT. PLAN FOR DIALYSIS IN AM AND PLAN FOR EXTUBATION, PT AND FAMILY UPDATED WITH PLAN OF CARE. WILL REPORT TO ONCOMING NURSE.
--- NOTE | 2020-10-03 20:00 | NUR ---
ASSUMED CARE OF PT AT 1915. PT PRESENTS IN BED. VENTED. AC 18, Tv 450, PEEP 5, FIO2 30 PERCENT. PT TOLERATING THIS WELL. PT ABLE TO NOD HEAD 'YES' AND 'NO' APPROPRIATELY TO QUESTIONS. DENIES PAIN. WILL REVIEW CHART AND PLAN OF CARE FOR THIS PT.
--- NOTE | 2020-10-04 | NUR ---
PT HAS BEEN PLACED TO PRESSURE SUPPORT. HAS NOT HAD SEDATION. MEDICATED PT WITH TYLENOL FOR LOW GRADE FEVER. PERSONAL FAN PLACED. PT NODS HEAD 'YES' TO ENJOYING. TOLERATING TURNS IN BED. TOLERATES TUBE FEEDING. WILL CONTINUE TO MONITOR.
[2020-10-04 05:09] LABS: BASOPHILS ABSOLUTE AUTO 0.04 K/mm3 (0.00-0.23); BASOPHILS PERCENT AUTO 0 % (0-2); EOSINOPHILS ABSOLUTE AUTO 0.71 K/mm3 (0.00-0.68); EOSINOPHILS PERCENT AUTO 5 % (0-6); Hematocrit 27.9 % (33.0-51.0); Hemoglobin 9.1 g/dL (11.5-16.0); IMMATURE GRAN ABSOLUTE AUTO 0.19 K/mm3 (0.00-0.10); IMMATURE GRAN PERCENT AUTO 1 % (0-1); LYMPHOCYTES ABSOLUTE AUTO 2.03 K/mm3 (0.84-5.20); LYMPHOCYTES PERCENT AUTO 14 % (21-46); MONOCYTES ABSOLUTE AUTO 0.98 K/mm3 (0.16-1.47); MONOCYTES PERCENT AUTO 7 % (4-13); Mean Corpuscular HGB 30.6 pg (26.0-34.0); Mean Corpuscular HGB Conc 32.6 g/dL (31.5-36.5); Mean Corpuscular Volume 94 fL (80-100); Mean Platelet Volume 10.2 fL (9.1-12.4); NEUTROPHILS ABSOLUTE AUTO 10.16 K/mm3 (1.96-9.15); NEUTROPHILS PERCENT AUTO 72 % (41-73); Platelet Count 460 K/mm3 (150-400); RDW Coefficient Variation 16.6 % (11.7-14.2); RDW Standard Deviation 53.8 fL (35.1-46.3); Red Blood Cell Count 2.97 M/mm3 (3.80-5.20); White Blood Cell Count 14.11 K/mm3 (4.00-11.30)
[2020-10-04 05:28] LABS: Albumin, Blood 1.8 g/dL (3.4-5.0); Anion Gap 9 mmol/L (6-16); Blood Urea Nitrogen 83 mg/dL (8-24); Bun/Creatinine Ratio 27.3 (12.0-20.0); CO2, Blood 26 mmol/L (21-32); Calcium, Blood 8.2 mg/dL (8.5-10.1); Chloride, Blood 112 mmol/L (98-108); Creatinine, Blood 3.04 mg/dL (0.40-1.00); Glomerular Filtration Rate 16 (60-); Glucose, Blood 226 mg/dL (70-99); Phosphorus, Blood 4.2 mg/dL (2.5-4.9); Potassium, Blood 3.6 mmol/L (3.5-5.5); Sodium, Blood 147 mmol/L (136-145)
--- NOTE | 2020-10-04 05:44 | NUR ---
SPOKE WITH DR LIZ THIS AM AND CONVEYED AM LABS. PT HAS BEEN PLACED TO PRESSURE SUPPORT BY RESPIRATORY AND PT TOLERATING WELL. NO SEDATION. DENIES PAIN. DID NEED TO INCREASE FIO2 TO 35 PERCENT. PT MAINTAINS 90-93 PERCENT SATRUATIONS. PT HAS MAINTAINED WITH NO LEVOPHED. HAS HAD VERY LITTLE RETURN FROM ETT SUCTIONING. NODS HEAD 'YES' AND 'NO' TO QUESTIONS. HAS BEEN INCONTINENT TO STOOL SEVERAL TIMES THIS NIGHT. PT TOERATING TUBE FEEDING AT 45 ML PER HOUR WHICH IS GOAL. WILL CONTINUE TO MONITOR PT, AND WILL REPORT OFF TO ONCOMING RN.
--- NOTE | 2020-10-04 09:08 | NUR ---
ASSUMED CARE OF PT, REPORT RCV'D FROM AURELIA HIRSCH. PTCALM AND COOPERATIVE, ALERT TO VERBAL STIMULUS, TRACKS SOUNDS AND FOLLOWS COMMANDS. PT REMAINS UNSEDATED ON PRESSURE SUPPORT /, 35%. PT RECEIVING DIALYSIS AT THIS TIME WITH PLAN FOR POSSIBLE EXTUBATION FOLLOWING DIALYSIS. TUBE FEED AT GOAL RATE OF 45 ML/HR. ABDOMEN DISTENDED, SOFT, BOWEL TONES X4. PT DENIES PAIN AT REST OR WITH ABDOMINAL PALPATION. PT REPORT OCCASIONAL BACK PAIN RELIEVED WITH REPOSITIONING. VSS AT THIS TIME. SEE FULL SHIFT ASSESSMENT.
--- NOTE | 2020-10-04 12:00 | NUR ---
WHILE RECEIVING DIALYSIS PT BECAME DIAPHORETIC AND TACHYCARDIC ALARMING VENT. PT REPORTS ABDOMINAL PAIN. TREATED WITH PAIN MEDICATION PER EMAR AND SWITCHED VENT BACK TO A/C MODE. PT RESTING COMFORTABLY AT THIS TIME.
[2020-10-04 14:27] LABS: PO2 Arterial 83.7 mmHg (80-100)
--- NOTE | 2020-10-04 15:16 | NUR ---
DR. LUDWIG AT BEDSIDE SPEAKING WITH PT'S SISTER REGARDING PLANS TO EXTUBATE. PER DR. LUDWIG, PT IS STILL RELATIVELY WEAK AND MIGHT BENEFIT FROM ADDITIONAL TIME ON VENTILATOR WITH SBT'S TO INCREASE STRENGTH. PT'S SISTER STATES UNDERSTANDING. PT ON SPONTANEOUS 05/04 35%. PT DENIES PAIN OR NEEDS AT THIS TIME. PT RESTING COMFORTABLY, REMAINS UNSEDATED.
--- NOTE | 2020-10-04 18:28 | NUR ---
SHIFT SUMMARY PT REMAINS INTUBATED ON SPONTANEOUS 05/04, 35%. PT VENT SETTINGS TO BE CHANGED TO AC THIS EVENING (NURSE NOTIFY) PT ABLE TO EXPRESS NEEDS BY NODDING HEAD YES/NO IN RESPONSE TO QUESTIONS. PT TOLERATING TUBE FEED WELL WITH LOW RESIDUALS, FLUSH INCREASED TO 100 ML Q4. VSS T/O SHIFT, EXCEPT FOR HYPOTENSION DURING DIALYSIS. WILL REPORT TO ONCOMING NURSE.
--- NOTE | 2020-10-04 19:30 | NUR ---
ASSUMED CARE REPORT RECEIVED FROM YONI MOSES. PT REMAINS ON VENT, SPONT MODE, NO SEDATION, TUBE FEEDS INFUSING @ 45ML/HR.
--- NOTE | 2020-10-05 00:18 | NUR ---
REASSESSMENT CONTINUE ON VENT, AC MODE OVERNIGHT FOR REST. TUBE FEEDS CONTINUE AT 45ML/HR WITH RISIDUALS OF 10ML. NO CHANGES. VITALS STABLE
[2020-10-05 04:02] LABS: BASOPHILS ABSOLUTE AUTO 0.04 K/mm3 (0.00-0.23); BASOPHILS PERCENT AUTO 0 % (0-2); EOSINOPHILS ABSOLUTE AUTO 0.58 K/mm3 (0.00-0.68); EOSINOPHILS PERCENT AUTO 4 % (0-6); Hemoglobin 8.4 g/dL (11.5-16.0); IMMATURE GRAN ABSOLUTE AUTO 0.14 K/mm3 (0.00-0.10); IMMATURE GRAN PERCENT AUTO 1 % (0-1); LYMPHOCYTES ABSOLUTE AUTO 1.64 K/mm3 (0.84-5.20); LYMPHOCYTES PERCENT AUTO 12 % (21-46); MONOCYTES ABSOLUTE AUTO 1.02 K/mm3 (0.16-1.47); MONOCYTES PERCENT AUTO 8 % (4-13); Mean Corpuscular HGB 30.8 pg (26.0-34.0); Mean Corpuscular HGB Conc 32.3 g/dL (31.5-36.5); Mean Corpuscular Volume 95 fL (80-100); NEUTROPHILS ABSOLUTE AUTO 9.94 K/mm3 (1.96-9.15); NEUTROPHILS PERCENT AUTO 75 % (41-73); Platelet Count 376 K/mm3 (150-400); RDW Coefficient Variation 16.9 % (11.7-14.2); RDW Standard Deviation 55.3 fL (35.1-46.3); Red Blood Cell Count 2.73 M/mm3 (3.80-5.20); White Blood Cell Count 13.36 K/mm3 (4.00-11.30)
[2020-10-05 04:18] LABS: Albumin, Blood 1.8 g/dL (3.4-5.0); Anion Gap 7 mmol/L (6-16); Blood Urea Nitrogen 91 mg/dL (8-24); Bun/Creatinine Ratio 30.6 (12.0-20.0); CO2, Blood 28 mmol/L (21-32); Calcium, Blood 8.3 mg/dL (8.5-10.1); Chloride, Blood 111 mmol/L (98-108); Creatinine, Blood 2.97 mg/dL (0.40-1.00); Glomerular Filtration Rate 16 (60-); Glucose, Blood 235 mg/dL (70-99); Magnesium, Blood 1.9 mg/dL (1.6-2.4); Phosphorus, Blood 3.6 mg/dL (2.5-4.9); Potassium, Blood 3.6 mmol/L (3.5-5.5); Sodium, Blood 146 mmol/L (136-145)
--- NOTE | 2020-10-05 04:28 | NUR ---
REASSESSMENT NO CHANGES
--- NOTE | 2020-10-05 06:10 | NUR ---
END OF SHIFT NOTE: PT RESTED OVERNIGHT ON A/C 18/ 30%/ TV 450. CURRENTLY NO GTTS. VITALS STABLE. PT REMAINS VERY WEAK AND NEEDS ASSIST OF 2 FOR TURNING AND REPOSITIONING. PT IS AWAKE, FOLLOWS COMMANDS AND NODS APPROPRIATLY.
--- NOTE | 2020-10-05 07:15 | NUR ---
PT RECEIVED FROM AURELIA DOLL. PT RESTING WITH EYES CLOSED. ON VENTILATOR, AC18 450/5/30%. LUNGS CLEAR, GOOD HEART TONES, REGULAR RATE, RIOS YELLOW TO GRAVITY DRAINAGE. TF PIVOT 1.5 @ 45ML/HR. NS@10ML/HR. AWAKENS TO VOICE, CBG 223, COVERED WITH 6U REGULAR INSULIN, NODS, SAMPLE COORDINATOR, TRIES TO BLINK COMMUNICATE NOT MOVING LEFT LEG AT THIS TIME. VS STABLE.
--- NOTE | 2020-10-05 08:30 | NUR ---
PT STATES HER BELLY IS PAINFUL, WOULD LIKE MEDICATED. PT GIVEN FENTANYL PER SEP.
--- NOTE | 2020-10-05 10:30 | NUR ---
AFTER PATIENT REPOSITIONED, ARMS,HANDS,FEET,ANKLES MASSAGED AND LOTION APPLIED PT ENJOYED, HEAD AND NECK MASSAGED WELL. PT EXPRESSED SATISFACTION. ALSO STATES THAT THE BELLY PAIN IS BETTER.
--- NOTE | 2020-10-05 12:50 | NUR ---
IT HAS BEEN ONE HOUR SINCE NITA HAS BEEN EXTUBATED. SHE WAS EXTUBATED AT 1145, AWAKE AND COUGHING, HELD THIS RN'S HAND, WAS NERVOUS. BREATHING WITH 2L ON N/C, KEEPING SATS >92%. MOUTH CLEANED, TEETH BRUSHED, ICE CHIPS TAKEN, GOOD COUGH, NOT PRODUCTIVE, SHE DOESN'T LIKE THE ORAL SUCTION. TUBE FEEDING OFF TIL 1345 PER 'S INSTRUCTIONS. PT'S RESTRAINTS OFF, MINIMAL PURPOSEFUL MOVEMENT. TRYING TO TALK, WANTS TO TALK TO HER SON. DISCUSSED WAITING TIL HER VOICE IS IMPROVED. AGREED.
--- NOTE | 2020-10-05 16:45 | NUR ---
NITA IS RESTING AT THIS MOMENT. SHE HAS BEEN AWAKE ALL DAY. HER SISTER WAS HERE SINCE JUST BEFORE 2 AND NITA ASKED HER TO LEAVE, HER SISTER DIDN'T WANT TO GO. NITA CONTINUED TO ASK AND ASKED ME TO ASK HER TO LEAVE, SO I DID. SHE IS NOW RESTING. SHE HAD A MOMENT INWHICH SHE FELT SHORT OF BREATH, AROUND 1600. I SAT HER UP A BIT AND COACHED HER TO SLOW HER BREATHING, LETTING HER KNOW HER OXYGENATION WAS GOOD, ENCOURAGED HER TO BREATHE THROUGH HER NOSE AND FEEL THE OXYGEN IN HER NOSE. SHE HAD AUDIBLE WHEEZES AT THE TIME AND IT WAS TIME FOR HER BREATHING TREATMENT. SHE COUGHED A COUPLE OF TIMES AND HER WHEEZES IMPROVED. HER SISTER WAS IN A "PANIC" MODE WHILE THIS WAS HAPPENING, I FEEL THAT IT MAY HAVE CONTRIBUTED TO WHY NITA ENDED UP ASKING HER TO LEAVE. HER BREATHING IS GOOD, LESS LABORED.
--- NOTE | 2020-10-05 17:13 | NUR ---
NITA STARTED THE DAY ON THE VENTILATOR AC 18/450/5/30%. SHE WAS MOVED TO SPONTANEOUS IN THE BUSINESS OFFICE TECHNICIAN. SHE WAS TOLERATING THIS WELL AND HER VOLUMES WERE GOOD, DECIDED TO HAVE HER EXTUBATED. SHE WAS EXTUBATED AROUND 1145 AM AND PLACED ON NASAL CANNULA. SHE IS ON 3L, HUMIDIFIED. SHE HAS REMAINED AWAKE ALL THROUGHOUT THE DAY, SHE HAD A BRIEF EPISODE AROUND 1600 OF FEELING SHORT OF BREATH, IT WAS TIME FOR HER BREATHING TREATMENT, CONVENIENTLY AND SHE WAS HAVING AUDIBLE WHEEZES AT THE TIME. SHE WAS COACHED THROUGH HER BREATHING AND TOLERATED THE RESP.TREATMENT WELL, WITH GOOD COUGHING AND DEEP BREATHING. SHE ASKED FOR SOME COOL WASHCLOTHS AND WAS ABLE TO TAKE A NAP. HER TUBE FEEDING WAS OFF FOR 2 HOURS POST EXTUBATION, IT IS NOW BACK ON AT 45ML/HR WITH 175ML FLUSHES. SHE CONTINUES WITH THE RIOS IN PLACE DRAINING TO GRAVITY. HER MOVEMENTS REMAIN STIFF AND DIFFICULT TO CONTROL. HER ARMS,LEGS,HANDS AND FEET WERE MASSAGED AND LOTIONED THIS SHIFT, HER SCALP AND NECK AND SHOULDERS WERE MASSAGED WELL TO HER PLEASURE. SHE WAS VISITED BY HER SISTER KATINA, BUT DID ASK HER TO LEAVE. WILL REPORT OFF TO NEXT SHIFT WHEN ABLE.
--- NOTE | 2020-10-05 18:45 | NUR ---
CHECKED IN ON PATIENT, SHE SAYS SHE ISN'T FEELING WELL. HER STOMACH IS UPSET AND SHE FEELS LIKE SHE IS GOING TO THROW UP. TUBE FEEDING STOPPED. NG TUBE PLACED TO LOW SUCTION, IMMEDIATE RETURN OF TUBE FEEDING AND GREEN BILE. ABD DISTENDED, FIRM, TENDER. PT GRIMACES TO THE TOUCH. ZOFRAN GIVEN PER SEP. PT ENCOURAGED TO SLOW HER BREATHING, ZOFRAN STARTING TO HELP. NITA ASKED IF IT CAME TO HER NOT BEING ABLE TO BREATHE, WOULD SHE WANT BACK ON THE MACHINE, SHE ANSWERED NO AND SHOOK HER HEAD. I ASKED, YOU DON'T WANT THAT TUBE IN YOUR THROAT AGAIN? SHE SHOOK HER HEAD NO. SHE STATED THAT HER NAUSEA IS IMPROVING BUT HER BELLY IS STILL PAINFUL.
--- NOTE | 2020-10-05 18:51 | NUR ---
10/05/[address] Gutierrez, patient remains intubated, receiving dialysis. NO ETA for discharge. cp
--- NOTE | 2020-10-05 19:15 | NUR ---
CARE ASSUMED REPORT RECEIVED FROM YONI MOSES. PT IS BATSHEVA, FOLLOWS COMMANDS. ON 3 L N/C, IV INFUSING AT TKO INTO PICC LINE, RIOS IN PLACE WITH DARK YELLOW UO. VITALS STABLE. CONTINUE TO ASSESS.
--- NOTE | 2020-10-06 00:08 | NUR ---
REASSESSMENT PT REMAINS ON 3 L N/C RR 18-25, BS DECREASED/CLEAR, ABD DISTENDED, TUBE FEEDS REMAIN OFF WITH NG TO LIS WITH BROWN OUTPUT, DUE TO PT C/O NAUSEA. Q2 TURNS WITH PILLOW SUPPORT IN PLACE, PTS MOUTH DRY, Q2 AND ORAL CARE WITH FREQUENT MOISTURE APPLIED. CONTINUE TO ASSESS.
[2020-10-06 03:43] LABS: BASOPHILS ABSOLUTE AUTO 0.06 K/mm3 (0.00-0.23); BASOPHILS PERCENT AUTO 1 % (0-2); EOSINOPHILS PERCENT AUTO 6 % (0-6); Hematocrit 26.5 % (33.0-51.0); Hemoglobin 8.6 g/dL (11.5-16.0); IMMATURE GRAN PERCENT AUTO 1 % (0-1); LYMPHOCYTES ABSOLUTE AUTO 1.64 K/mm3 (0.84-5.20); LYMPHOCYTES PERCENT AUTO 13 % (21-46); MONOCYTES ABSOLUTE AUTO 0.89 K/mm3 (0.16-1.47); MONOCYTES PERCENT AUTO 7 % (4-13); Mean Corpuscular HGB 31.3 pg (26.0-34.0); Mean Corpuscular HGB Conc 32.5 g/dL (31.5-36.5); Mean Corpuscular Volume 96 fL (80-100); Mean Platelet Volume 9.8 fL (9.1-12.4); NEUTROPHILS ABSOLUTE AUTO 9.11 K/mm3 (1.96-9.15); NEUTROPHILS PERCENT AUTO 72 % (41-73); Platelet Count 421 K/mm3 (150-400); RDW Standard Deviation 57.6 fL (35.1-46.3); Red Blood Cell Count 2.75 M/mm3 (3.80-5.20)
[2020-10-06 04:01] LABS: Albumin/Globulin Ratio 0.5 (0.8-1.8); Bilirubin, Direct 0.5 mg/dL (0.0-0.3); Bilirubin, Indirect 0.3 mg/dL (0.1-0.7); Bilirubin, Total 0.8 mg/dL (0.1-1.0); Bun/Creatinine Ratio 32.1 (12.0-20.0); Calcium, Blood 8.8 mg/dL (8.5-10.1); Creatinine, Blood 3.02 mg/dL (0.40-1.00); Globulin, Blood 4.2 g/dL (2.2-4.0); Magnesium, Blood 2.2 mg/dL (1.6-2.4); Phosphorus, Blood 5.2 mg/dL (2.5-4.9); Potassium, Blood 3.7 mmol/L (3.5-5.5); Total Protein, Blood 6.2 g/dL (6.4-8.2)
--- NOTE | 2020-10-06 04:49 | NUR ---
REASSESSMANT NO CHANGES. PT ON 3 L NC. TOLERATING TURNS WELL. ENCOURAGED INCREASING ACTIVITY AND ROM. CONTINUE TO ASSESS.
--- NOTE | 2020-10-06 07:30 | NUR ---
ASSUMED CARE BEDSIDE REPORT RECIEVED. PT IS LAYING IN BED AWAKE, ALERT, AND ORIENTED. PT IS ABLE TO ANSWER SOME QUESTIONS APPROPRIATELY, BUT SPEECH IS SOFT. PT DENIES PAIN OR DISCOMFORT AT THIS TIME. PT MOVES ALL EXTREMITIES, BUT IS VERY WEAK WITH MOVEMENT. PT ON 3L O2 NC. VITAL SIGNS STABLE. NGT IN PLACE AT THIS TIME TO LIS. PICC TO DEONTE C/D/I. D5 INFUSING AT 50 ML/HR. RIOS IN PLACE WITH YELLOW URINE OUTPUT NOTED. WILL CONTINUE TO MONITOR.
--- NOTE | 2020-10-06 14:57 | NUR ---
10/06/20- FAXED [facility] PT'S UPDATED POLST TO CLINIC. PT WAS EXTUBATED ON 10/05/20 AND IS NOW ON NC 3L. SWALLOW EVAL COMPLETED TODAY, PT HAS ASPIRATION PRECAUTIONS. THEY ARE RECOMMENDING SNF.-MICHELE
--- NOTE | 2020-10-06 16:09 | NUR ---
Summary of pt visits and case conferences with Arlet Ramirez and Matt, , RN, [id number] [phone], Sister Nicolle, [facility] Care Coord and Contract Paralegal. Update obtained on current status and concerns during ICU IDT meeting and with EMR review. eval being started and joint visit made with Zayra ALCARAZ to assist in determining pt's cognitive ability to discuss her wishes going forward in regard to code status, reintubation if indicated. Pt had very weak and delayed response to simple questions. She indicated with a nod that she was not hurting. With difficulty she communicated that she wanted to be repositioned, which we did. When I attempted to ask her about being intubated again, she indicated she needed help with this decision from either Handy, her step son or Nicolle her sister. I initially called Nicolle at a number given to me for Handy. Nicolle referred me to Handy and gave me his number. He is currently out of state and normally lives in [place]. Handy was welcoming of the conversation and stated he felt pt was too frail to survive CPR or being intubated again. He stated pt was aware she had chronic kidney failure prior to this admit but ignored it. He said she "lived in denial" of all of her health issues and rarely did follow up care as recommended by drs. We discussed the impact of a prolonged hospital stay with much of it spent on the ventilator on her current cognition and ability to understand the complexities of her current care needs. We discussed the hope that she would clear more and be better able to communicate and understand as she recovers and hopefully gains strength. Handy does not believe that Mary would want any resuscitative effort initiated at this time if she declined again. He inquired about her dialysis and asked if she was still needing it. He does not believe that she would want to continue that half-way. At this time she is being closely monitored & Dr Jensen has been updating Handy with last call a couple days ago. Today's PN states, "hemodyalysis per schedule", which was shared with Handy. We discussed longer term care goals and Handy verbalized understanding that pt will need rehab after acute care stay, which [facility] Window Shade Estimator is aware of & will help with coordinating with CM for d/c when pt medically ready. New POLST completed over the phone with Handy due to conflicting POLST of 3-4 years ago in EMR. No AD found in EMR or at [facility]. Discussed new code status requested and documented on POLST with [facility] , who signed POLST. Copies given to [facility], Medical Records and placed on the chart. Reviewed all of the above with pt's RN, Contract Paralegal, ST and [facility] care cord. Plan is for pt to be transferred to a recliner to see how she tolerates that today, NG feedings to cont & ST for feeding therapy. ST was able to return and meet with sister for updating and education on ST plan and pt care. PT/OT discussed with RN if pt tolerates being oob to chair today. Will also discuss with [facility] provider. Plan to cont to follow for advanced care planning and s/s management. RT and ST working with pt on clearing secretions, cough and dyspnea. That and weakness are her primary s/s at this time.
--- NOTE | 2020-10-06 18:31 | NUR ---
SHIFT SUMMARY NO ACUTE CHANGES THIS SHIFT. PT HAS REMAINED AWAKE, ALERT, AND ORIENTED THROUGHOUT THE DAY. PT WITH SOFT VOICE, BUT SPEECH IS SLIGHTLY IMPROVED THIS EVENING. VITAL SIGNS HAVE REMAINED STABLE. PT ON 3L O2 NC. NGT IN PLACE WITH TF AT 25 ML/HR. PICC TO DEONTE C/D/I. D5 INFUSING AT 50 ML/HR. DIALYSIS CATH TO RIJ REMAINS C/D/I. RIOS IN PLACE WITH YELLOW URINE OUTPUT NOTED. PT MOVES ALL EXTREMITIES, BUT WITH PROFOUND WEAKNESS. PT UP TO RECLINER CHAIR THIS AFTERNOON BY LIFT. PT TOLERATED WELL. PT SISTER AT BEDSIDE THIS AFTERNOON. WILL CONTINUE TO MONITOR AND REPORT OFF TO ONCOMING RN.
--- NOTE | 2020-10-06 19:22 | NUR ---
CARE ASSUMED REPORT RECEIVED FROM YONI SAUCEDO. PT AWAKE, FOLLOWS, NO CURRNET DRIPS, ON NC 2 L, RIOS IN PLACE DRAINING YELLOW OUTPUT, VITALS STABLE, CONTINUE ASSESSMENT.
--- NOTE | 2020-10-07 00:01 | NUR ---
REASSESSMENTTF RISIDUALS 0, TUBE FEED INCREASED TO 35. NO OTHER CHANGES, CONTINUE ASSESSMENT AND CARE.
[2020-10-07 06:14] LABS: Anion Gap 9 mmol/L (6-16); Blood Urea Nitrogen 98 mg/dL (8-24); CO2, Blood 26 mmol/L (21-32); Calcium, Blood 8.8 mg/dL (8.5-10.1); Chloride, Blood 108 mmol/L (98-108); Creatinine, Blood 2.65 mg/dL (0.40-1.00); Glomerular Filtration Rate 19 (60-); Glucose, Blood 253 mg/dL (70-99); Magnesium, Blood 2.1 mg/dL (1.6-2.4); Phosphorus, Blood 4.7 mg/dL (2.5-4.9); Potassium, Blood 3.8 mmol/L (3.5-5.5); Sodium, Blood 143 mmol/L (136-145)
[2020-10-07 06:14] LABS: BASOPHILS ABSOLUTE AUTO 0.05 K/mm3 (0.00-0.23); BASOPHILS PERCENT AUTO 0 % (0-2); EOSINOPHILS ABSOLUTE AUTO 0.64 K/mm3 (0.00-0.68); EOSINOPHILS PERCENT AUTO 6 % (0-6); Hematocrit 26.8 % (33.0-51.0); Hemoglobin 8.6 g/dL (11.5-16.0); IMMATURE GRAN ABSOLUTE AUTO 0.09 K/mm3 (0.00-0.10); IMMATURE GRAN PERCENT AUTO 1 % (0-1); LYMPHOCYTES ABSOLUTE AUTO 1.44 K/mm3 (0.84-5.20); LYMPHOCYTES PERCENT AUTO 13 % (21-46); MONOCYTES ABSOLUTE AUTO 0.77 K/mm3 (0.16-1.47); MONOCYTES PERCENT AUTO 7 % (4-13); Mean Corpuscular HGB 31.5 pg (26.0-34.0); Mean Corpuscular HGB Conc 32.1 g/dL (31.5-36.5); Mean Corpuscular Volume 98 fL (80-100); Mean Platelet Volume 10.5 fL (9.1-12.4); NEUTROPHILS ABSOLUTE AUTO 8.31 K/mm3 (1.96-9.15); NEUTROPHILS PERCENT AUTO 74 % (41-73); Platelet Count 425 K/mm3 (150-400); RDW Coefficient Variation 16.9 % (11.7-14.2); RDW Standard Deviation 58.7 fL (35.1-46.3); Red Blood Cell Count 2.73 M/mm3 (3.80-5.20)
--- NOTE | 2020-10-07 06:57 | NUR ---
END OF SHIFT PT REMAINS ON 3 L NC. [id number], SOB WITH MVT AND REPOSITION.
--- NOTE | 2020-10-07 12:56 | NUR ---
ASSUMED CARE OF PT, REPORT RCV'D FROM AURELIA DOLL. PT ALERT TO VERBAL STIMULI, PT ABLE TO FOLLOW SIMPLE COMMANDS WEAKLY. PT NODS HEAD YES/NO IN RESPONSE TO QUESTIONS OCCASIONAL SOFT VERBAL RESPONSE. PT ON 3L NC, SATS>90%. DIALYSIS THIS MORNING WITH 1600 OFF. SPEECH THERAPY WORKED WITH PT THIS MORNING AND OT/PT AT BEDSIDE WORKING WITH PT AT THIS TIME. PT VERY WEAK BUT MOTIVATED TO GET STRONGER, COOPERATIVE WITH CARE.
--- NOTE | 2020-10-07 13:05 | NUR ---
pt tolerating dialysis resting will follow up with family on plan of care.
--- NOTE | 2020-10-07 16:00 | NUR ---
10/07/20- PER CHART REVIEW, PT IS AWAKE AND COMMUNICATING. SHE IS ABLE TO MOVE BUT IS VERY WEAK. SHE IS ON 3L OF O2. STILL HAS FEEDING TUBE DUE TO RISK OF ASPIRATION. PT HAS ACUTE ON CHRONIC KIDNEY DISEASE, LIZ IS FOLLOWING PT IN THE HOSPITAL. PER DR. KAUR, PT IS NOT CLOSE TO BEING D/C AT THIS TIME. HE FEELS THAT WHEN SHE DOES D/C SHE WILL NEED TO GO TO SNF.-MICHELE
--- NOTE | 2020-10-07 18:01 | NUR ---
SHIFT SUMMARY NO ACUTE CHANGES THIS SHIFT. PT REMAINS ALERT TO VERBAL STIMULI, FOLLOWS COMMANDS, IS MOTIVATED AND COOPERATIVE WITH CARE. PT ABLE TO EXPRESS NEEDS THROUGH VERBAL AND NON VERBAL CUE. PT'S VSS T/O SHIFT. 600 ML/HR URINARY OUTPUT. PT TO BE TRANSFERRED TO PCU 10, REPORT GIVEN TO AURELIA LORENZANA. PTS FAMILY UPDATED WITH TRANSFER.
--- NOTE | 2020-10-07 18:48 | NUR ---
PT TRANSFERRED FROM ICU7 TO PCU10 REPORT RECEIVED FROM NATY MOSES. PT ARRIVED IN THE UNIT SLIDE SHEET TRANSFER TO PCU BED, PT ON 2L OF O2 VIA NASAL CANNULA SATS ABOVE 95%, BP SYSTOLIC 140'S, HRR SR AT 80'S, TEMP 99.3. PT IS ALERT AND RESPONDING BY NODDING AND MAKING FACIAL EXPRESSION UNABLE TO TALK MUCH YET POST EXTUBATED. PT HAS CONTINUOUS FEEDING RUNNING AT 40MLS/HR WITH 100MLS FLUSH Q4HRS. RIOS DRAINING PATENT VIA GRAVITY. PT IS NOW RESTING IN BED, CALL LIGHTS IN REACH WILL REPORT TO ONCOMING SHIFT
[2020-10-08 05:01] LABS: BASOPHILS ABSOLUTE AUTO 0.03 K/mm3 (0.00-0.23); BASOPHILS PERCENT AUTO 0 % (0-2); EOSINOPHILS ABSOLUTE AUTO 0.56 K/mm3 (0.00-0.68); EOSINOPHILS PERCENT AUTO 5 % (0-6); Hematocrit 26.1 % (33.0-51.0); Hemoglobin 8.5 g/dL (11.5-16.0); IMMATURE GRAN PERCENT AUTO 1 % (0-1); LYMPHOCYTES ABSOLUTE AUTO 1.82 K/mm3 (0.84-5.20); LYMPHOCYTES PERCENT AUTO 16 % (21-46); MONOCYTES ABSOLUTE AUTO 0.97 K/mm3 (0.16-1.47); MONOCYTES PERCENT AUTO 8 % (4-13); Mean Corpuscular HGB 31.4 pg (26.0-34.0); Mean Corpuscular HGB Conc 32.6 g/dL (31.5-36.5); Mean Corpuscular Volume 96 fL (80-100); Mean Platelet Volume 9.7 fL (9.1-12.4); NEUTROPHILS ABSOLUTE AUTO 8.01 K/mm3 (1.96-9.15); NEUTROPHILS PERCENT AUTO 70 % (41-73); Platelet Count 337 K/mm3 (150-400); RDW Coefficient Variation 16.9 % (11.7-14.2); RDW Standard Deviation 57.7 fL (35.1-46.3); Red Blood Cell Count 2.71 M/mm3 (3.80-5.20); White Blood Cell Count 11.49 K/mm3 (4.00-11.30)
[2020-10-08 05:19] LABS: Albumin, Blood 2.1 g/dL (3.4-5.0); Anion Gap 5 mmol/L (6-16); Blood Urea Nitrogen 80 mg/dL (8-24); CO2, Blood 30 mmol/L (21-32); Calcium, Blood 8.7 mg/dL (8.5-10.1); Chloride, Blood 109 mmol/L (98-108); Creatinine, Blood 2.05 mg/dL (0.40-1.00); Glomerular Filtration Rate 25 (60-); Glucose, Blood 213 mg/dL (70-99); Magnesium, Blood 2.2 mg/dL (1.6-2.4); Phosphorus, Blood 3.9 mg/dL (2.5-4.9); Potassium, Blood 3.9 mmol/L (3.5-5.5); Sodium, Blood 144 mmol/L (136-145)
--- NOTE | 2020-10-08 06:31 | NUR ---
SHIFT SUMMARY PATIENT IS ALERT AND ORIENTED X3, COULD NOT STATE WHERE SHE WAS, THOUGHT SHE WAS ON AN AIRPLANE AT TIMES. EASILY REORIENTED. Q2 HOURS TURNS. USED LIFT AND GOT PATIENT INTO THE RECLINER FOR A COUPLE HOURS UPON HER REQUEST. PATIENT IS TALKING, QUIET, AND MUMBLES AT TIMES. PATIENT SLEPT ON AND OFF THROUGHOUT THE NIGHT. ORAL CARE PROVIDED. 02 SATS >90% ON 2L VIA NC. CONTINUOUS TUBE FEEDING. CHECKED RISIDUAL Q4 HOURS, 5MLS EACH TIME. VSS, NO ACUTE CHANGES. CALL LIGHT IN REACH.
--- NOTE | 2020-10-08 14:40 | NUR ---
10/08/20- PER CHART REVIEW WITH DR. KAUR, PT WILL BE IN THE HOSPITAL FOR 2-3 MORE DAYS. SHE IS GOING TO NEED TO WORK WITH PT AND OT FOR EVALUATION OF PLAN FOR WHEN SHE D/C FROM THE HOSPITAL. -NELLYW PER CHART REVIEW, PT WAS MOVED OUT OF THE ICU TO PCU. SHE STILL HAS AN NG TUBE IN. SPEECH THERAPY IS DOING EVAL AND PT IS CURRENTLY STILL NPO DUE TO RISK OF ASPIRATION. PT & OT CAN START SERVICES WITH PT NOW THAT SHE IS OUT OF THE ICU. PT USED LIFT TO GET OUT OF BED AND INTO CHAIR YESTERDAY. PT STILL NEEDS 3L OF 02. -MICHELE
--- NOTE | 2020-10-08 19:18 | NUR ---
SHIFT SUMMARY NO ACUTE EVENTS THIS SHIFT, VSS. PATIENT HAD DIALYSIS TODAY, APPEARED FATIGUED AFTERWARD THIS AFTERNOON. TUBE FEED CONTINUED AT GOAL RATE WITH FLUSHES ORDERED. PATIENT REMAINS VERY WEAK THIS SHIFT, PATIENT TURNED THROUGHOUT SHIFT. PATIENT WAS ABLE TO HAVE A BOWEL MOVEMENT TODAY, BOWEL CARE MEDS STARTED PER DR. KAUR.
--- NOTE | 2020-10-09 04:53 | NUR ---
SHIFT SUMMARY PATIENT ALERT AND ORIENTED, COOPERATIVE WITH CARE. Q2 HOUR TURNING. RISIDUAL CHECKED WITH CONTINUOUS TUBE FEEDING Q4 HOURS, 5MLS EACH TIME. 02 SATS >95% ON 2L VIA NC. PATIENT HAS NOT BEEN SLEEPING AT NIGHT, STATES THAT SHE SLEPT DURING THE DAY. PATIENT RESPONDING APPROPRIATELY, VOICE RASPY AND SPEAKS VERY QUIETLY. VSS, NO ACUTE CHANGES. CALL LIGHT IN REACH.
--- NOTE | 2020-10-09 14:52 | NUR ---
10/09/20- Per chart review with Dr. Weber, pt is confused and she doesn't like males touching her. He reports that the pt was put in a franko lift and was able to be moved to a chair. feels that pt. could potentially be d/c Monday to SNF but pt is not ready to go home. -alex
--- NOTE | 2020-10-09 15:47 | NUR ---
REPORT GIVEN TO NANO MOSES ON MEDICAL.
--- NOTE | 2020-10-09 15:47 | NUR ---
SBAR REPORT FROM NILESH WEINER RN.
--- NOTE | 2020-10-10 04:45 | NUR ---
SHIFT SUMMARY- PT. A&O, SLOW TO RESPOND WITH WEAK VOICE. PT. IS A 2 MAX ASSIST W/LIFT. ON CONTINOUS TUBE FEEDINGS @40MLS/HR WITH 100ML FLUSH. REPOSITIONED Q2HRS AND PRN. RIOS CATHETER IN PLACE, PATENT, AND DRAINING. PT. HAD LARGE LOOSE BM LAST NIGHT, ATTENDS IN PLACE. RT IJ AND PICC INTACT. PT. HAD NO COMPLAINTS T/O THE NIGHT. APPEARED TO HAVE RESTED COMFORTABLY DURING THE NIGHT, NO APPARENT DISTRESS NOTED. CALL LIGHT WITHIN REACH AND SIDE RAILS UPX2. WILL CONT TO MONITOR.
[2020-10-10 05:53] LABS: BASOPHILS ABSOLUTE AUTO 0.03 K/mm3 (0.00-0.23); BASOPHILS PERCENT AUTO 0 % (0-2); EOSINOPHILS ABSOLUTE AUTO 0.52 K/mm3 (0.00-0.68); EOSINOPHILS PERCENT AUTO 5 % (0-6); Hematocrit 25.9 % (33.0-51.0); Hemoglobin 8.4 g/dL (11.5-16.0); IMMATURE GRAN ABSOLUTE AUTO 0.14 K/mm3 (0.00-0.10); IMMATURE GRAN PERCENT AUTO 1 % (0-1); LYMPHOCYTES ABSOLUTE AUTO 1.72 K/mm3 (0.84-5.20); LYMPHOCYTES PERCENT AUTO 16 % (21-46); MONOCYTES ABSOLUTE AUTO 0.73 K/mm3 (0.16-1.47); MONOCYTES PERCENT AUTO 7 % (4-13); Mean Corpuscular HGB 31.3 pg (26.0-34.0); Mean Corpuscular HGB Conc 32.4 g/dL (31.5-36.5); Mean Corpuscular Volume 97 fL (80-100); Mean Platelet Volume 10.4 fL (9.1-12.4); NEUTROPHILS ABSOLUTE AUTO 7.48 K/mm3 (1.96-9.15); NEUTROPHILS PERCENT AUTO 70 % (41-73); Platelet Count 297 K/mm3 (150-400); RDW Coefficient Variation 16.8 % (11.7-14.2); RDW Standard Deviation 58.1 fL (35.1-46.3); Red Blood Cell Count 2.68 M/mm3 (3.80-5.20); White Blood Cell Count 10.62 K/mm3 (4.00-11.30)
[2020-10-10 06:21] LABS: Albumin, Blood 2.2 g/dL (3.4-5.0); Albumin/Globulin Ratio 0.5 (0.8-1.8); Bilirubin, Total 0.5 mg/dL (0.1-1.0); Bun/Creatinine Ratio 44.3 (12.0-20.0); C-REACTIVE PROTEIN, EXT RANGE 4.99 mg/dL (0.000-0.300); Calcium, Blood 9.1 mg/dL (8.5-10.1); Creatinine, Blood 1.85 mg/dL (0.40-1.00); Globulin, Blood 4.5 g/dL (2.2-4.0); Magnesium, Blood 2.1 mg/dL (1.6-2.4); Phosphorus, Blood 3.7 mg/dL (2.5-4.9); Potassium, Blood 4.3 mmol/L (3.5-5.5); Total Protein, Blood 6.7 g/dL (6.4-8.2)
--- NOTE | 2020-10-10 15:09 | NUR ---
PT NG FEEDINGS THIS RN RECEIVED ORDERS TO STOP TUBE FEEDINGS FOR 4 HOURS AND THEN CHECK RESIDUAL CONTENT DUE TO PT COMPLAINTS OF ABD PAIN, NAUSEA, AND ABD DISTENTION. THIS RN STOPPED FEEDING AT APPROXIMATELY 1100 AND CHECKED RESIDUAL CONTENT AT 1500. PT HAD 30 ML OF RESIDUAL FEEDING WHICH WAS REINSTILLED. THIS RN STARTED TUBE FEEDING UP AT 10 ML/HR PER ORDERS. THIS RN NOTIFIED DIETARY DEPARTMENT OF THE RESIDUAL AMOUNT AND NEW RATE OF THE TUBE FEEDING. PT CURRENTLY BEING TRANSFERRED FOR ABDOMINAL XRAY. THIS RN WILL CONTINUE TO MONITOR PT STATUS.
--- NOTE | 2020-10-10 19:09 | NUR ---
SHIFT SUMMARY PT IS AO TO SELF AND FAMILY. PT C/O ABDOMINAL PAIN AND NAUSEA. PT HAD 2 BOUTS OF DIARRHEA THIS SHIFT. PT RESPIRATIONS ARE SHALLOW, SATS 96% ON 2 LITERS NC. PT IS DIAPHORETIC WITH TEMP OF 99.3. PT IS ON BEDREST WITH Q2H TURNS. PT HAD ABD XRAY AND CT TODAY FOR ABD PAIN AND DISTENTION. TUBE FEEDINGS DISCONTINUED PER PHYSICIAN ORDERS. PT'S NIECE VISITED TODAY. IV HYDRALAZINE GIVEN X1 FOR HTN. THIS RN CHANGED PT'S PICC LINE DRESSING TODAY. PT IS IN BEDM CALL LIGHT IN REACH, LOW POSITION.
--- NOTE | 2020-10-11 05:19 | NUR ---
SHIFT SUMMARY- PT. HAD NO C/O ABD PAIN OR N/V LAST NIGHT. TF RESUMED AT 1OMLS/HR, PT. TOLERATING WELL. ALSO RECEIVING CLINIMIX. BP ELEVATED DURING THE NIGHT, MEDICATED PER EMAR. PT. PLACED ON TELEMETRY DUE TO REQUIREMENT FOR IV LOPRESSOR. 1 LOOSE BM THIS SHIFT, RIOS CATHETER PATENT AND DRAINING. NO ACUTE CHANGES TO CONDITION. CALL LIGHT WITHIN REACH AND SIDE RAILS UPX2. WILL CONT TO MONITOR.
[2020-10-11 05:25] LABS: BASOPHILS ABSOLUTE AUTO 0.03 K/mm3 (0.00-0.23); BASOPHILS PERCENT AUTO 0 % (0-2); EOSINOPHILS ABSOLUTE AUTO 0.43 K/mm3 (0.00-0.68); EOSINOPHILS PERCENT AUTO 4 % (0-6); Hematocrit 26.2 % (33.0-51.0); Hemoglobin 8.5 g/dL (11.5-16.0); IMMATURE GRAN ABSOLUTE AUTO 0.14 K/mm3 (0.00-0.10); IMMATURE GRAN PERCENT AUTO 1 % (0-1); LYMPHOCYTES ABSOLUTE AUTO 1.71 K/mm3 (0.84-5.20); LYMPHOCYTES PERCENT AUTO 14 % (21-46); MONOCYTES ABSOLUTE AUTO 0.72 K/mm3 (0.16-1.47); MONOCYTES PERCENT AUTO 6 % (4-13); Mean Corpuscular HGB 31.1 pg (26.0-34.0); Mean Corpuscular HGB Conc 32.4 g/dL (31.5-36.5); Mean Corpuscular Volume 96 fL (80-100); Mean Platelet Volume 10.1 fL (9.1-12.4); NEUTROPHILS ABSOLUTE AUTO 8.87 K/mm3 (1.96-9.15); NEUTROPHILS PERCENT AUTO 74 % (41-73); Platelet Count 310 K/mm3 (150-400); RDW Standard Deviation 57.6 fL (35.1-46.3); Red Blood Cell Count 2.73 M/mm3 (3.80-5.20)
[2020-10-11 05:51] LABS: Albumin, Blood 2.3 g/dL (3.4-5.0); Albumin/Globulin Ratio 0.5 (0.8-1.8); Bilirubin, Total 0.6 mg/dL (0.1-1.0); Bun/Creatinine Ratio 47.2 (12.0-20.0); Calcium, Blood 9.5 mg/dL (8.5-10.1); Creatinine, Blood 1.78 mg/dL (0.40-1.00); Globulin, Blood 4.5 g/dL (2.2-4.0); Magnesium, Blood 2.3 mg/dL (1.6-2.4); Phosphorus, Blood 3.9 mg/dL (2.5-4.9); Total Protein, Blood 6.8 g/dL (6.4-8.2)
--- NOTE | 2020-10-11 17:11 | NUR ---
SHIFT SUMMARY PT IS AO TO SELF AND FAMILY WITH MINIMAL VERBAL RESPONSES. PT C/O PAIN IN THE LEFT SIDE OF HER ABDOMEN. PT DENIES N/V, SOB. PT HAD DIARRHEA X1 THIS SHIFT. PT IS ON BEDREST WITH REPOSITIONING. PT'S SON VISITED TODAY TO REVIEW PT'S CODE STATUS AND POA. PT HAD ANOTHER VISITOR THIS BEATA, DESPITE STEP-SON'S EARLIER VISIT. PT IS RECEIVING TUBE FEEDING AT 20 ML/HR AND TOLERATING THIS RATE WELL. PT RECEIVED IV LOPRESSOR FOR HTN PER EMAR. TELE IS RUNNING NORMAL SINUS RHYTHM IN THE 80S THIS BEATA PER MIGEUL IN TELEMETRY. PT SLEEPING ON AND OFF T/O SHIFT. PT IS CURRENTLY IN BED, CALL LIGHT IN REACH, LOW POSITION.
[2020-10-12 05:38] LABS: BASOPHILS ABSOLUTE AUTO 0.04 K/mm3 (0.00-0.23); BASOPHILS PERCENT AUTO 0 % (0-2); EOSINOPHILS ABSOLUTE AUTO 0.35 K/mm3 (0.00-0.68); EOSINOPHILS PERCENT AUTO 3 % (0-6); Hematocrit 27.2 % (33.0-51.0); Hemoglobin 8.7 g/dL (11.5-16.0); IMMATURE GRAN ABSOLUTE AUTO 0.17 K/mm3 (0.00-0.10); IMMATURE GRAN PERCENT AUTO 1 % (0-1); LYMPHOCYTES ABSOLUTE AUTO 1.82 K/mm3 (0.84-5.20); LYMPHOCYTES PERCENT AUTO 14 % (21-46); MONOCYTES ABSOLUTE AUTO 0.78 K/mm3 (0.16-1.47); MONOCYTES PERCENT AUTO 6 % (4-13); Mean Corpuscular HGB 31.1 pg (26.0-34.0); Mean Corpuscular Volume 97 fL (80-100); Mean Platelet Volume 10.1 fL (9.1-12.4); NEUTROPHILS ABSOLUTE AUTO 9.45 K/mm3 (1.96-9.15); NEUTROPHILS PERCENT AUTO 75 % (41-73); Platelet Count 278 K/mm3 (150-400); RDW Coefficient Variation 17.1 % (11.7-14.2); RDW Standard Deviation 59.7 fL (35.1-46.3); White Blood Cell Count 12.61 K/mm3 (4.00-11.30)
--- NOTE | 2020-10-12 05:51 | NUR ---
SHIFT SUMMARY- NO ACUTE CHANGES THIS SHIFT. PT. HAD SOME ABD TENDERNESS, NO C/O N/V. CONTINOUS TF @20MLS/HR, TOLERATING WELL. ALSO ON CLINIMIX. PT. RESPONDS TO VERBAL STIMULI AND FOLLOW COMMANDS. REPOSITIONED FOR COMFORT AND PRN. RIOS CATHETER PATENT AND DRAINING, ATTENDS IN PLACE. VSS. CALL LIGHT WITHIN REACH AND SIDE RAILS UPX2. WILL CONT TO MONITOR.
[2020-10-12 05:58] LABS: Albumin, Blood 2.2 g/dL (3.4-5.0); Anion Gap 7 mmol/L (6-16); Blood Urea Nitrogen 82 mg/dL (8-24); Bun/Creatinine Ratio 49.7 (12.0-20.0); CO2, Blood 27 mmol/L (21-32); Calcium, Blood 9.3 mg/dL (8.5-10.1); Chloride, Blood 108 mmol/L (98-108); Creatinine, Blood 1.65 mg/dL (0.40-1.00); Glomerular Filtration Rate 32 (60-); Glucose, Blood 192 mg/dL (70-99); Magnesium, Blood 2.3 mg/dL (1.6-2.4); Phosphorus, Blood 4.5 mg/dL (2.5-4.9); Potassium, Blood 4.2 mmol/L (3.5-5.5); Sodium, Blood 142 mmol/L (136-145)
[2020-10-12 15:12] LABS: Source, Urine Catheter
[2020-10-12 15:14] LABS: Appearance, Urine Cloudy (Clear); Bilirubin, Urine Neg (Neg); Blood, Urine 4+ (Neg); Color, Urine Yellow (P-Yellow); Glucose Qualitative, Urine Neg (Neg); Ketones, Urine Neg (Neg); Leukocyte Esterase, Urine 3+ (Neg); Nitrite, Urine Neg (Neg); Protein, Urine 2+ (Neg); Urobilinogen, Urine NORM (Normal)
[2020-10-12 16:06] LABS: Bacteria Many /hpf; Squamous Epithelial Cells Rare /hpf (Few); White Blood Cells, Urine 25-50 /hpf (0-5)
--- NOTE | 2020-10-12 19:43 | NUR ---
SHIFT SUMMARY: NO ACUTE CHANGES TO REPORT THIS SHIFT. PT SLEEPING T/O SHIFT; AWAKENS TO VOICE. MEDICATED FOR CHRONIC BACK PAIN PER EMAR. CLINIMIX @ 50; PEG TUBE FEEDING AT 20. IV ABX CONTINUING. REPORT GIVEN TO ONCOMING RN.
--- NOTE | 2020-10-13 04:35 | NUR ---
VS/LOC: PATIENT IS NON VEBAL THIS SHIFT, OPENS EYE'S TO VOICE. BP IS TRENDING DOWN, RESPIRATIONS ARE 27-28, MAINTAINING SATS ON 2L NC. LOW GRADE TEMP. AND PATIENT IS DIAPHORETIC. DOCTOR CARUSO IS NOTIFIED AND CT OF HEAD IS ORDERED. INFORMATION SYSTEMS MANAGER AND NURSING SENIOR LANDSCAPE ARCHITECT ARE MADE AWARE OF PATIENT DECLINE IN CONDITION. RECOMEND TRANSFER TO ICU ON PCU STATUS. DR CARUSO IS CALLED AGAIN TO REQUEST ORDER FOR TRANSFER TO ICU, AWAITING CALL BACK.
--- NOTE | 2020-10-13 04:43 | NUR ---
GI: LATE ENTRY FOR 0130-PATIENT IS DRY HEAVING, ABD. IS SERVERLY DISTENDED, NO RESIDUAL ON TUBE FEELING. DR LEE IS NOTIFIED AND ORDER TO HOLD TUBE FEEDING FOR 12 HOURS IS OBTAINED.
--- NOTE | 2020-10-13 04:50 | NUR ---
TRANSFER: ORDER OBTAINED TO TRANSFER PATIENT TO ICU ON PCU STATUS AFTER CT.
--- NOTE | 2020-10-13 05:43 | NUR ---
TRANSFER: LATE ENTRY FOR 0500-REPORT WAS CASLLED TO ICU 1 RN AND PATIENT IS TAKEN TO CT AND THEN TO ICU.
[2020-10-13 06:07] LABS: Hematocrit 26.6 % (33.0-51.0); Hemoglobin 8.4 g/dL (11.5-16.0); Mean Corpuscular HGB 30.5 pg (26.0-34.0); Mean Corpuscular HGB Conc 31.6 g/dL (31.5-36.5); Mean Corpuscular Volume 97 fL (80-100); Mean Platelet Volume 10.1 fL (9.1-12.4); Platelet Count 328 K/mm3 (150-400); RDW Coefficient Variation 17.3 % (11.7-14.2); RDW Standard Deviation 60.6 fL (35.1-46.3); Red Blood Cell Count 2.75 M/mm3 (3.80-5.20); White Blood Cell Count 19.53 K/mm3 (4.00-11.30)
--- NOTE | 2020-10-13 06:11 | NUR ---
NOTIFICATION OF TRANSFER: CALL WAS PLACED AND SCHEDULE MAKER SPOKE WITH SISTER KATINA TO INFORM HER OF TRAMSFER TO ICU BED 1.
[2020-10-13 06:24] LABS: Alanine Aminotransfer (ALT/SGP 39 U/L (12-78); Albumin/Globulin Ratio 0.5 (0.8-1.8); Alk Phos 189 U/L (50-136); Anion Gap 10 mmol/L (6-16); Aspartate Aminotrans (AST/SGOT 24 U/L (12-37); Bilirubin, Total 0.6 mg/dL (0.1-1.0); Blood Urea Nitrogen 115 mg/dL (8-24); Bun/Creatinine Ratio 46.6 (12.0-20.0); CO2, Blood 24 mmol/L (21-32); Chloride, Blood 106 mmol/L (98-108); Creatinine, Blood 2.47 mg/dL (0.40-1.00); Globulin, Blood 4.1 g/dL (2.2-4.0); Glomerular Filtration Rate 20 (60-); Glucose, Blood 206 mg/dL (70-99); Magnesium, Blood 2.5 mg/dL (1.6-2.4); Phosphorus, Blood 6.6 mg/dL (2.5-4.9); Potassium, Blood 5.4 mmol/L (3.5-5.5); Sodium, Blood 140 mmol/L (136-145); Total Protein, Blood 6.1 g/dL (6.4-8.2)
[2020-10-13 07:08] LABS: BAND PERCENT MAN 7 % (0-8); BASOPHILS PERCENT MAN 0 % (0-2); EOSINOPHILS ABSOLUTE MAN 0.39 K/mm3 (0.00-0.68); EOSINOPHILS PERCENT MAN 2 % (0-6); LYMPHOCYTES ABSOLUTE MAN 3.32 K/mm3 (0.84-5.20); LYMPHOCYTES PERCENT MAN 17 % (21-46); MONOCYTES ABSOLUTE MAN 1.36 K/mm3 (0.16-1.47); MONOCYTES PERCENT MAN 7 % (4-13); NEUTROPHILS ABSOLUTE MAN 14.45 K/mm3 (1.96-9.15); SEG NEUTROPHILS PERCENT MAN 67 % (41-73); TOTAL CELLS COUNTED 100
--- NOTE | 2020-10-13 07:38 | NUR ---
ASSUMED CARE: PT RESTING IN BED AT THIS TIME. EYES CLOSED, MOUTH OPEN, TF CLAMPED AT THIS TIME DUE TO DRY HEAVING THIS AM. APPEARS TO BE SLEEPING, NSR ON TELE AT THIS TIME. NO ACUTE NEEDS OR CONCERNS
--- NOTE | 2020-10-13 11:11 | NUR ---
DISCUSSED PT'S NEURO STATUS WITH DR CONN WHO STATES PT BEING UNRESPONSIVE WAS SAME YESTERDAY AM. PT STILL NONVERBAL AND UNABLE TO MOVE EXTREMITIES OR FOLLOW INSTRUCTIONS. MOVES EYES BUT DOES NOT SPEAK. DR CONN SPOKE WITH PT'S SON ABOUT FURTHER PLANS.
--- NOTE | 2020-10-13 11:29 | NUR ---
PT TAKEN TO IMAGING VIA BED AT THIS TIME
--- NOTE | 2020-10-13 13:30 | NUR ---
DR ROSSI CAME TO SEE PT AND IS SUGGESTING CT GUIDED DRAIN PLACED. SPOKE WITH PT'S SISTER AND WAS PROVIDED WITH STEP-SON'S PHONE NUMBER. DR ROSSI INSTRUCTED TO KEEP PT'S TUBE FEED OFF UNTIL WE KNOW EITHER WAY IF CT CAN OCCUR.
[2020-10-13 18:05] LABS: Vancomycin, Random 11.6 ug/mL
--- NOTE | 2020-10-13 19:30 | NUR ---
PATIENT AWAKE BUT NOT FOLLOWING DIRECTIONS. CLOSING EYES WHEN ATTEMPTING TO SEE PUPILS, AND BITING ON SUCTION TOOTHBRUSH DURING ORAL CARE. NG IN PLACE AND CLAMPED. ABD SOFT AND ROUND WITH HYPOACTIVE BOWEL TONES. DIALYSIS CATH TO RIGHT CHEST DRESSING CD&I. PICC TO LEFT UPPER ARM FLUIDS CHANGED TO NS AT 50 CC/HR FOR TRANSPORT TO [facility]. ON 3L/NC
--- NOTE | 2020-10-13 19:36 | NUR ---
SHIFT SUMMARY: PT RESTING IN BED, BPS NORMALIZING AT THIS TIME. NG IN PLACE BUT CLAMPED. INSTRUCTED BY DR ROSSI NOT TO RESTART FEEDING DUE TO POSSIBLE SURGERY AT NEXT FACILITY. PT REMAINS AWAKE AND TRACKS WITH EYES BUT NONVERBAL AND DOES NOT FOLLOW INSTRUCTIONS. FAMILY AWARE OF STATUS AND PLAN FOR [place] TRANSFER.
--- NOTE | 2020-10-13 20:44 | NUR ---
TRANSPORT HERE TO TAKE PATIENT TO [facility] ROOM 8C ROOM 13. REPORT CALLED TO SUSANNA MOSES AT 2020, AND PATIENT FAMILY WESTON (SON) AND KATIAN (SISTER) NOTIFIED OF ROOM AND THAT PATIENT LEAVING TONIGHT.
== END 2020-10-13 20:45 | disposition short-term general hospital (02) | DRG 870 ==
LOC: ER 07:50 → ICUE 19:37 → MEDS 19:37 → PCU 09-18 10:53 → ICUE 09-19 09:14 → PCU 10-07 18:15 → MEDS 10-09 16:15 → ICUE 10-13 05:16
PROVIDERS: Emergency Medicine; Family Medicine; Hospitalist; Internal Medicine; Internal Medicine Critical Care Medicine; Internal Medicine Nephrology; Internal Medicine Pulmonary Disease; Nurse Practitioner Acute Care; Pharmacist; ADMIT Family Medicine
PROC: 0BH17EZ Insertion of Endotracheal Airway into Trachea, Via Natural or Artificial Opening (ICD-10-PCS; principal; 2020-09-19)
PROC: 5A1955Z Respiratory Ventilation, Greater than 96 Consecutive Hours (ICD-10-PCS; 2020-09-19)
PROC: 02HV33Z Insertion of Infusion Device into Superior Vena Cava, Percutaneous Approach (ICD-10-PCS; 2020-09-26)
PROC: 5A1D70Z Performance of Urinary Filtration, Intermittent, Less than 6 Hours Per Day (ICD-10-PCS; 2020-09-26)
PROC: 0BH17EZ Insertion of Endotracheal Airway into Trachea, Via Natural or Artificial Opening (ICD-10-PCS; 2020-09-27)
PROC: 5A1955Z Respiratory Ventilation, Greater than 96 Consecutive Hours (ICD-10-PCS; 2020-09-27)
PROC: 30233N1 Transfusion of Nonautologous Red Blood Cells into Peripheral Vein, Percutaneous Approach (ICD-10-PCS; 2020-10-10)
DX: A40.8 Other streptococcal sepsis (principal); J96.01 Acute respiratory failure with hypoxia; J69.0 Pneumonitis due to inhalation of food and vomit; G92 Toxic encephalopathy; K85.10 Biliary acute pancreatitis without necrosis or infection; Z66 Do not resuscitate; N39.0 Urinary tract infection, site not specified; N17.9 Acute kidney failure, unspecified; E87.2 Acidosis; E87.0 Hyperosmolality and hypernatremia; M62.82 Rhabdomyolysis; K56.7 Ileus, unspecified; D62 Acute posthemorrhagic anemia; B44.1 Other pulmonary aspergillosis; Z20.822 Contact with and (suspected) exposure to COVID-19; R79.89 Other specified abnormal findings of blood chemistry; E86.9 Volume depletion, unspecified; R73.9 Hyperglycemia, unspecified; E83.39 Other disorders of phosphorus metabolism; R62.7 Adult failure to thrive; Z68.29 Body mass index [BMI] 29.0-29.9, adult; E87.5 Hyperkalemia; K80.20 Calculus of gallbladder without cholecystitis without obstruction; J44.9 Chronic obstructive pulmonary disease, unspecified; E88.09 Other disorders of plasma-protein metabolism, not elsewhere classified; K21.9 Gastro-esophageal reflux disease without esophagitis; E78.5 Hyperlipidemia, unspecified; D63.1 Anemia in chronic kidney disease; G43.909 Migraine, unspecified, not intractable, without status migrainosus; I48.0 Paroxysmal atrial fibrillation; R13.12 Dysphagia, oropharyngeal phase; I12.9 Hypertensive chronic kidney disease with stage 1 through stage 4 chronic kidney disease, or unspecified chronic kidney disease; N18.9 Chronic kidney disease, unspecified; M54.9 Dorsalgia, unspecified; G89.29 Other chronic pain; Z96.641 Presence of right artificial hip joint; Z98.890 Other specified postprocedural states; Z88.8 Allergy status to other drugs, medicaments and biological substances; Z79.899 Other long term (current) drug therapy; Z90.710 Acquired absence of both cervix and uterus
CPT/HCPCS: 0202U; 0241U; 31500; 31720; 36415; 36430; 36569; 36600; 70450; 71045; 74019; 74022; 74176; 74177; 74181; 80048; 80053; 80069; 80074; 80076; 80202; 81001; 81050; 82140; 82150; 82248; 82330; 82436; 82550; 82553; 82784; 82803; 82947; 82977; 83516; 83520; 83605; 83615; 83625; 83690; 83735; 83880; 84100; 84132; 84146; 84156; 84165; 84166; 84300; 84478; 84484; 84550; 85018; 85025; 86038; 86140; 86256; 86317; 86334; 86335; 86850; 86900; 86901; 86923; 87040; 87070; 87077; 87086; 87106; 87184; 87186; 87205; 92526; 92610; 93005; 93010; 93308; 93321; 94002; 94003; 94640; 94644; 94660; 94760; 94762; 96365-59; 96367; 96375; 96376; 97110; 97112; 97162; 97166; 97530; 97535; 99285-25; A9270; C1751; C1752; C9113; J0282; J0295; J0330; J0360; J0610; J0696; J0881; J1170; J1644; J1650; J1815; J1940; J2060; J2185; J2405; J2543; J2550; J2704; J2997; J3010; J3370; J3480; J7030; J7040; J7050; J7060; J7070; J7120; J7131; P9016; P9046; Q9967